=== PATIENT | female | born 1950 | race Caucasian/White ===

== ENCOUNTER → 2018-06-26 10:59 | Outpatient (REF) | payer MEDICARE, OTHER, SELFPAY ==
--- NOTE | 2018-06-26 10:40 | PAPFT_PTH ---
PATIENT: Dena Mojica LOC: [facility] U#:[id number] AGE/SX: 75/F ROOM: RE06/26/[address]: Anayeli Chamberlain DO : 1950 BED: DIS: SPEC #: [id number] RECD: 06/26/18 12:47 STATUS: RAMONA RERayna #: [id number] JUAN: 06/26/18 10:[address]: Anayeli Chamberlain DEPT: [facility] Cytology RECD BY: Ellen Batista Tissues: 1 - CX/ENDOCX FOR PAP SMEARS Procedures: PAP THIN PREP/UVM Screening Comments: [id number]
== END ==
LOC: LBN 10:59
PROVIDERS: PCP Student in an Organized Health Care Education/Training Program; Visit Provider Student in an Organized Health Care Education/Training Program
DX: R39.15 Urgency of urination (principal); Z12.4 Encounter for screening for malignant neoplasm of cervix
CPT/HCPCS: 88142; 87086

== ENCOUNTER → 2018-07-29 09:56 | Outpatient (BNVA) | payer MEDICARE, SELFPAY | PROVIDERS: PCP Student in an Organized Health Care Education/Training Program; Visit Provider Psychiatry & Neurology Neurology | DX: E11.42 Type 2 diabetes mellitus with diabetic polyneuropathy (principal); M48.061 Spinal stenosis, lumbar region without neurogenic claudication; R20.0 Anesthesia of skin | CPT/HCPCS: 99214 ==

== ENCOUNTER 2018-07-29 10:57 | Outpatient (CLI) | payer MEDICARE, OTHER, SELFPAY ==
[2018-07-29 11:49] LABS: Abs Immature Grans 0.02 k/cumm (0.0-0.09); Absolute Basophil Count 0.03 k/cumm (0.0-0.2); Absolute Eosinophil Count 0.28 k/cumm (0.0-0.7); Absolute Lymphocyte Count 2.71 k/cumm (1.2-3.4); Absolute Monocyte Count 0.69 k/cumm (0.11-0.7); Absolute Neutrophil Count 6.04 k/cumm (1.2-6.7); Basophils % 0.3; Eosinophils % 2.9; HCT 35.9 % (36.0-46.0); HGB 11.8 g/dL (12.0-15.5); Immature Grans % 0.2; Lymphocytes % 27.7; Mean Corp. HGB Concentration 32.9 g/dL (32.0-36.0); Mean Corpuscular Hemoglobin 30.1 pg (27.0-33.0); Mean Corpuscular Volume 91.6 fL (80-95); Mean Platelet Volume 10.5 fL (8.0-11.0); Monocytes % 7.1; Neutrophils % 61.8; Platelet Count 282 x1000/uL (130-400); RBC 3.92 m/cumm (4.00-5.20); RBC Distribution Width 14.9 % (11.7-14.6); White Blood Cell Count 9.77 k/cumm (4.4-10.8)
[2018-07-29 12:20] LABS: ALT 21 U/L (12-78); AST 12 U/L (15-37); Albumin 3.5 g/dL (3.4-5.0); Alkaline Phosphatase 126 U/L (46-116); Anion Gap 5.4 mmol/L (3-11); BUN 18 mg/dL (7-18); Bilirubin, Total 0.4 mg/dL (0.2-1.0); CO2 27.6 mmol/L (21.0-32.0); CREATININE 0.96 mg/dL (0.55-1.02); Calcium 8.8 mg/dL (8.5-10.1); Chloride 101 mmol/L (98-107); Estimated GFR 58.33 (mL/min/1.73m2); Glucose 117 mg/dL (70-100); Magnesium 1.8 mg/dL (1.8-2.4); Potassium 4.5 mmol/L (3.5-5.1); Sodium 134 mmol/L (136-145); Total Protein 7.1 g/dL (6.4-8.2)
== END 2018-07-29 11:17 ==
PROVIDERS: PCP Student in an Organized Health Care Education/Training Program; Visit Provider Student in an Organized Health Care Education/Training Program
DX: E11.9 Type 2 diabetes mellitus without complications (principal); J30.9 Allergic rhinitis, unspecified; I21.9 Acute myocardial infarction, unspecified
CPT/HCPCS: 36415; 80053; 99214; 83735; 85025

== ENCOUNTER → 2018-12-03 10:08 | Outpatient (BNVA) | payer MEDICARE, OTHER, SELFPAY | PROVIDERS: Visit Provider Internal Medicine Cardiovascular Disease | DX: I25.810 Atherosclerosis of coronary artery bypass graft(s) without angina pectoris (principal); Z95.1 Presence of aortocoronary bypass graft; I73.9 Peripheral vascular disease, unspecified; I51.9 Heart disease, unspecified; E78.5 Hyperlipidemia, unspecified; I34.0 Nonrheumatic mitral (valve) insufficiency; I11.9 Hypertensive heart disease without heart failure; E11.42 Type 2 diabetes mellitus with diabetic polyneuropathy; Z79.84 Long term (current) use of oral hypoglycemic drugs | CPT/HCPCS: 99214 ==

== ENCOUNTER → 2018-12-16 09:13 | Outpatient (BNVA) | payer MEDICARE, OTHER, SELFPAY | PROVIDERS: PCP Student in an Organized Health Care Education/Training Program; Referring Provider Student in an Organized Health Care Education/Training Program; Visit Provider Orthopaedic Surgery | DX: M65.312 Trigger thumb, left thumb (principal); M65.332 Trigger finger, left middle finger; M65.331 Trigger finger, right middle finger; M65.341 Trigger finger, right ring finger; Z96.651 Presence of right artificial knee joint | CPT/HCPCS: 99214 ==

== ENCOUNTER 2018-12-23 11:48 | Day surgery (SDC) | payer MEDICARE, OTHER, SELFPAY ==
[2018-12-23 12:33] VITALS: BP 100/62; PULSE 78; RESP 16; TEMP 36.1; O2SAT 98
[2018-12-23] MEDS: Lidocaine 2% Pres-Free 5 ML VIAL (13:43)
--- NOTE | 2018-12-23 14:32 | W.PM.DSUDISC ---
Discharge Plan Disposition Patient Disposition: HOME Condition: Good Discharge Details Reason For Visit: multiple trigger finger releases Attending Provider: Justo Garcia Primary Care Provider: Anayeli Chamberlain Home Meds and New Rx's Prescriptions: Continued cyanocobalamin (vitamin B-12) [Vitamin B-12] 1,000 MCG tablet 1,000 tab PO HS RF: 0 olopatadine [Patanol] 5 ML drops 1 drp Ophthalmic BID PRNRF: 0 nitroglycerin 0.4 MG tablet, sublingual 0.4 mg Sublingual PRN Qty: 25 RF: 3 fluticasone 16 GM spray,suspension 2 spray NS DAILY PRNQty: 6 RF: 3 pyridoxine (vitamin B6) [Vitamin B-6] 200 MG tablet extended release 200 mg PO DAILY RF: 0 ascorbic acid (vitamin C) [Vitamin C] 1,000 MG tablet 1,000 mg PO DAILY RF: 0 calcium carbonate-vitamin D3 1 EACH tablet 1 ea PO DAILY RF: 0 Proventil HFA 6.7 GM HFA aerosol inhaler 2 puff Inhalation Q6H PRN Qty: 1 RF: 11 acetaminophen 325 MG tablet 650 mg PO Q6H PRN RF: 0 carbamide peroxide [Debrox] 15 ML drops 15 ml Otic qhs Qty: 1 RF: 1 Blood Glucose Test 1 EACH strip 1 ea Miscellaneous BID PRNQty: 180 RF: 3 nystatin 15 GM cream 1 emmanuel Topical TID Qty: 30 RF: 1 Varicella-Zoster Ge/As01b/Pf [Shingrix Vial Kit] 50 MCG INJ 50 mcg IM ONCE Qty: 1 RF: 0 Lyrica 150 MG capsule 150 mg PO BID Qty: 180 RF: 3 atorvastatin 40 mg tablet 20 mg PO DAILY Qty: 90 RF: 3 clopidogrel 75 mg tablet 75 mg PO DAILY Qty: 90 RF: 3 furosemide 20 mg tablet 40 mg PO DAILY Qty: 180 RF: 3 ibuprofen 800 mg tablet 800 mg PO TID Qty: 90 RF: 0 lisinopril 10 mg tablet 10 mg PO DAILY Qty: 90 RF: 3 metformin 1,000 mg tablet 500 mg PO BID Qty: 90 RF: 3 metoprolol succinate 50 mg tablet extended release 24 hr 50 mg PO DAILY Qty: 90 RF: 3 oxybutynin chloride 5 mg tablet 5 mg PO TID Qty: 270 RF: 3 aspirin 81 MG tablet,chewable 81 mg PO DAILY RF: 0 Therapeutic-M 1 TAB tablet 1 tab PO DAILY Qty: 100 RF: 0 lorazepam 0.5 MG tablet 0.5 mg PO BID PRNQty: 30 RF: 0 Discharge Instructions Additional Instructions: Move fingers and thumbs of both hands 10 times/hour when awake to prevent stiffness and swelling. Keep dressings dry and intact for 48 hours. After 48 hours, you may remove the dressings, shower or bathe, and get incisions wet. Leave incisions uncovered when they are dry and sealed. Use your hands as much as pain allows. Take tylenol for pain. Follow up in 's office in 10-14 days. Activity:: Activity as Tolerated Remove Dressings/Wound Care:: 48 hours Shower/Bathe:: 48 hours Diet:: As Tolerated Discharge Orders Discharge Orders: Discharge Order (Routine); Ordered 12/23/18 Ordered By: Justo Garcia DS: Diagnosis Discharge Diagnosis (1) Trigger thumb of left hand: Start date: 12/23/18 Start time: 14:38 Status: Acute (2) Trigger finger, left middle finger: Start date: 12/23/18 Start time: 14:38 Status: Acute (3) Trigger finger, right middle finger: Start date: 12/23/18 Start time: 14:38 Status: Acute (4) Trigger finger, right ring finger: Start date: 12/23/18 Start time: 14:38 Status: Acute
--- NOTE | 2018-12-23 18:39 | ROE_ITS ---
DATE OF PROCEDURE: December 23, 2018 PREOPERATIVE DIAGNOSIS: Trigger right middle and ring fingers, as well as trigger left middle finger and trigger left thumb. POSTOPERATIVE DIAGNOSIS: Same. PROCEDURE: Tendon sheath incision for trigger fingers right middle and ring fingers, left middle fin adri, and left thumb. SURGEON: Justo Garcia M.D. ANESTHESIA: Local infiltration with 1% Xylocaine solution and 0.5% Marcaine with epinephrine solutio n. INDICATIONS: This is a 68-year-old white female who suffers from multiple painful trigger fingers. She feels that the triggering of her left thumb is probably the worst in terms of influencing functio n. She has had the painful locking for several months. She wishes to have all the fingers and her t humb released to alleviate her pain. The risks and complications of the procedure were explained to the patient in detail. She had had previous successful right trigger thumb release in the past. PROCEDURE: The patient was taken to the Operating Room on 12/23/18. She was placed supine on the ope rating table and her left hand was prepped and draped free in the usual sterile fashion. I then infi ltrated with 1% Xylocaine solution over the proximal una of the flexor sheath of the left thumb an d left middle finger. Once good anesthesia was obtained, I made an incision in line with the proxima l flexion crease of the left thumb centered over the flexor sheath. The incision was about 2-3 cm in length. The incision was carried down through the skin to the subcu. Blunt-tipped Littler scissors were then used to mobilize the digital nerve away from the flexor sheath. Under direct vision I inci sed the proximal una of the flexor sheath of the left thumb, releasing it completely. The patient was asked to flex and extend her left thumb actively. She was able to flex and extend her left thum b without any locking or triggering. The wound margins were then infiltrated with 0.5% Marcaine with epinephrine solution and the skin edges were approximated with interrupted #4-0 nylon sutures. I then made an incision over the flexor sheath of the left middle finger located about 5 mm distal to the distal palmar flexion crease. The incision was about 2.5 cm in length. The incision was maria eugenia d down to the subcu. Blunt-tipped Littler scissors were used to mobilize the soft tissue away from t he flexor sheath. Under direct vision I incised the proximal una of the flexor sheath. The patie nt was asked to actively flex and extend her left middle finger. She was able to flex and extend her left middle finger fully, with no further locking or triggering. The wound margins were infiltrated with 0.5% Marcaine with epinephrine solution and the skin edges were approximated with a few interru pted #4-0 nylon sutures. The wounds were then dressed with Xeroform gauze, sterile gauze 4x4s, and w rapped with a 2-inch Jannette bandage for a light pressure dressing. Attention was then turned to the r ight hand. The right hand was prepped and draped free in the usual sterile fashion. I then infiltrated over the flexor sheath of the right middle and ring fingers in the palm. Once good anesthesia was obtained, I then made a longitudinal incision about 5 mm distal and parallel to the distal palmar flexion creas e, starting over the flexor sheath of the ring finger and extending to the radial side of the flexor sheath of the middle finger. The incision was about 3-3.5 cm in length. The incision was carried do wn through the skin and subcu. Blunt-tipped Littler scissors were then used to mobilize the soft tis sues away from the flexor sheath of the ring finger. I then incised the proximal una of the left ring finger its entire length. The patient was asked to actively flex and extend the ring finger. S he was able to actively flex and extend her ring finger without locking or triggering. I then repeat ed the same incision on the flexor sheath of the right middle finger. After incising the proximal pu lley, the patient was asked to actively flex and extend her middle finger. She was now able to flex and extend her right middle finger without locking or triggering. The wound was irrigated with salin e solution. The wound margins were infiltrated with 0.5% Marcaine with epinephrine solution and the skin edges were approximated with interrupted #4-0 nylon sutures. The wound was dressed with Xerofor m gauze, sterile gauze 4x4s, and wrapped with a Jannette bandage for a light pressure dressing. The pat ient tolerated the procedure well and was discharged to the Day Surgery Unit in good condition. The patient was discharged home from the Day Surgery Unit with instructions to move her fingers and t humbs 10 times an hour while awake to prevent swelling and stiffness. She is to keep the dressings o n both hands clean and dry for 48 hours. After 48 hours she may remove her dressings, shower and get her incisions wet. She can leave the incisions uncovered when they are dry and sealed. She is enco uraged to use both hands as much as discomfort allows. She will take Tylenol for pain. She will fol low up in my office in 10 to 14 days.
== END 2018-12-23 14:50 | disposition home or self-care (01) ==
PROVIDERS: PCP Student in an Organized Health Care Education/Training Program; Visit Provider Orthopaedic Surgery
PROC: (CPT 26055; principal; 2018-12-23 13:00)
DX: M65.331 Trigger finger, right middle finger (principal); M65.341 Trigger finger, right ring finger; M65.332 Trigger finger, left middle finger; M65.312 Trigger thumb, left thumb; I10 Essential (primary) hypertension; E11.9 Type 2 diabetes mellitus without complications; G47.33 Obstructive sleep apnea (adult) (pediatric)
CPT/HCPCS: 26055

== ENCOUNTER 2018-12-29 12:00 | Outpatient (CLI) | payer MEDICARE, OTHER, SELFPAY ==
[2018-12-29 12:43] LABS: Anion Gap 12.7 mmol/L (3-11); BUN 24 mg/dL (7-18); CO2 23.3 mmol/L (21.0-32.0); CREATININE 1.13 mg/dL (0.55-1.02); Calcium 8.7 mg/dL (8.5-10.1); Chloride 104 mmol/L (98-107); Estimated GFR 48.18 (mL/min/1.73m2); Glucose 133 mg/dL (70-100); Magnesium 2.1 mg/dL (1.8-2.4); Potassium 4.6 mmol/L (3.5-5.1); Sodium 140 mmol/L (136-145)
[2018-12-29 12:52] LABS: Troponin I < 0.02 ng/mL (0.00-0.06)
== END 2018-12-29 12:20 ==
PROVIDERS: PCP Student in an Organized Health Care Education/Training Program; Visit Provider Family Medicine
DX: I49.3 Ventricular premature depolarization (principal); E11.9 Type 2 diabetes mellitus without complications; Z86.39 Personal history of other endocrine, nutritional and metabolic disease
CPT/HCPCS: 36415; 80048; 83735; 84484

== ENCOUNTER → 2018-12-31 14:05 | Outpatient (BNVA) | payer MEDICARE, OTHER, SELFPAY | PROVIDERS: PCP Student in an Organized Health Care Education/Training Program; Visit Provider Psychiatry & Neurology Neurology | DX: E11.42 Type 2 diabetes mellitus with diabetic polyneuropathy (principal); I73.9 Peripheral vascular disease, unspecified; M47.816 Spondylosis without myelopathy or radiculopathy, lumbar region | CPT/HCPCS: 99214 ==

== ENCOUNTER → 2019-01-05 09:36 | Outpatient (BNVA) | payer MEDICARE, OTHER, SELFPAY | PROVIDERS: PCP Student in an Organized Health Care Education/Training Program; Referring Provider Student in an Organized Health Care Education/Training Program; Visit Provider Orthopaedic Surgery | DX: Z47.89 Encounter for other orthopedic aftercare (principal); M65.312 Trigger thumb, left thumb; M65.332 Trigger finger, left middle finger; M65.331 Trigger finger, right middle finger; M65.341 Trigger finger, right ring finger ==

== ENCOUNTER 2019-01-05 10:45 | Outpatient (CLI) | payer MEDICARE, OTHER, SELFPAY ==
[2019-01-05 12:53] LABS: ALT 20 U/L (12-78); AST 12 U/L (15-37); Albumin 3.5 g/dL (3.4-5.0); Alkaline Phosphatase 101 U/L (46-116); Anion Gap 12.1 mmol/L (3-11); BUN 24 mg/dL (7-18); Bilirubin, Total 0.4 mg/dL (0.2-1.0); CO2 23.9 mmol/L (21.0-32.0); CREATININE 1.06 mg/dL (0.55-1.02); Calcium 9.1 mg/dL (8.5-10.1); Chloride 103 mmol/L (98-107); Cholesterol 156 mg/dL (50-200); Estimated GFR 51.86 (mL/min/1.73m2); Glucose 146 mg/dL (70-100); HDL Cholesterol 36 mg/dL (40-60); LDL CHOLESTEROL 75 mg/dL (<100); Potassium 4.5 mmol/L (3.5-5.1); Sodium 139 mmol/L (136-145); Total Protein 6.9 g/dL (6.4-8.2); Triglyceride 271 mg/dL (30-150)
== END 2019-01-05 11:05 ==
PROVIDERS: Internal Medicine Cardiovascular Disease; PCP Student in an Organized Health Care Education/Training Program; Visit Provider Student in an Organized Health Care Education/Training Program
DX: E78.5 Hyperlipidemia, unspecified (principal); I21.4 Non-ST elevation (NSTEMI) myocardial infarction; I10 Essential (primary) hypertension; R79.89 Other specified abnormal findings of blood chemistry
CPT/HCPCS: 36415; 80048; 80053; 80061; 83721

== ENCOUNTER → 2019-02-02 10:26 | Outpatient (BNVA) | payer MEDICARE, OTHER, SELFPAY | PROVIDERS: PCP Student in an Organized Health Care Education/Training Program; Referring Provider Student in an Organized Health Care Education/Training Program; Visit Provider Orthopaedic Surgery | DX: M70.61 Trochanteric bursitis, right hip (principal); M65.312 Trigger thumb, left thumb; M65.332 Trigger finger, left middle finger; M65.331 Trigger finger, right middle finger; M65.341 Trigger finger, right ring finger; E11.9 Type 2 diabetes mellitus without complications; Z79.84 Long term (current) use of oral hypoglycemic drugs | CPT/HCPCS: 99211; 99213 ==

== ENCOUNTER → 2019-04-12 09:33 | Outpatient (BNVA) | payer MEDICARE, OTHER, SELFPAY | PROVIDERS: PCP Student in an Organized Health Care Education/Training Program; Visit Provider Psychiatry & Neurology Neurology | DX: E11.42 Type 2 diabetes mellitus with diabetic polyneuropathy (principal); I73.9 Peripheral vascular disease, unspecified; M47.816 Spondylosis without myelopathy or radiculopathy, lumbar region; Z79.84 Long term (current) use of oral hypoglycemic drugs; I10 Essential (primary) hypertension | CPT/HCPCS: 99213 ==

== ENCOUNTER 2019-05-19 00:13 | Outpatient (CLI) | payer MEDICARE, OTHER, SELFPAY ==
--- NOTE | 2019-05-19 12:49 | DI.CT_ITS ---
SYMPTOMS/DIAGNOSIS: 8.1 MM LUNG NODULE PER JUL 2017 IMAGE, STABLE PER 02/02/18 CT, R91.1-SOLITARY PULMONARY NODULE CHEST CT, NONCONTRAST: CT examination of the chest was performed without contrast administration. Images obtained through the upper abdomen show unremarkable appearance of visualized portions of the liver, spleen and pancreas. No pleural effusion seen. No pulmonary consolidation. A previously described right lower lobe nodule, which is well circumscribed, measures about 7 mm in mean diameter and is unchanged in appearance in comparison with the previous CT of 02/02/18. No new pulmonary nodules seen. Tracheolaryngeal structures appear intact. No significant adenopathy identified. CONCLUSION: Stable right lower lobe pulmonary nodule, which is about 7 mm in mean diameter. Follow-up chest CT recommended in 12 months.
== END 2019-05-19 00:33 ==
PROVIDERS: PCP Student in an Organized Health Care Education/Training Program; Visit Provider Student in an Organized Health Care Education/Training Program
DX: R91.1 Solitary pulmonary nodule (principal)
CPT/HCPCS: 71250

== ENCOUNTER → 2019-07-14 14:25 | Outpatient (BNVA) | payer MEDICARE, OTHER, SELFPAY | PROVIDERS: PCP Student in an Organized Health Care Education/Training Program; Visit Provider Psychiatry & Neurology Neurology | DX: J81.1 Chronic pulmonary edema (principal); E11.42 Type 2 diabetes mellitus with diabetic polyneuropathy; I73.9 Peripheral vascular disease, unspecified; M47.816 Spondylosis without myelopathy or radiculopathy, lumbar region; Z79.84 Long term (current) use of oral hypoglycemic drugs; I10 Essential (primary) hypertension | CPT/HCPCS: 99214 ==

== ENCOUNTER 2019-08-10 09:25 | Outpatient (CLI) | payer MEDICARE, OTHER, SELFPAY ==
[2019-08-10 10:40] LABS: HCT 38.3 % (36.0-46.0); HGB 12.2 g/dL (12.0-15.5); Mean Corp. HGB Concentration 31.9 g/dL (32.0-36.0); Mean Corpuscular Hemoglobin 29.2 pg (27.0-33.0); Mean Corpuscular Volume 91.6 fL (80-95); Mean Platelet Volume 10.7 fL (8.0-11.0); Platelet Count 223 x1000/uL (130-400); RBC 4.18 m/cumm (4.00-5.20); RBC Distribution Width 15.5 % (11.7-14.6); White Blood Cell Count 9.26 k/cumm (4.4-10.8)
[2019-08-10 10:57] LABS: Anion Gap 11.9 mmol/L (3-11); BUN 13 mg/dL (7-18); CO2 23.1 mmol/L (21.0-32.0); CREATININE 1.02 mg/dL (0.55-1.02); Chloride 108 mmol/L (98-107); Estimated GFR 54.22 (mL/min/1.73m2); Glucose 146 mg/dL (70-100); Potassium 5.2 mmol/L (3.5-5.1); Sodium 143 mmol/L (136-145)
[2019-08-10 11:02] LABS: Calcium 8.4 mg/dL (8.5-10.1)
[2019-08-10 11:26] LABS: Calculated LDL 48 mg/dL; Cholesterol 137 mg/dL (50-200); HDL Cholesterol 36 mg/dL (40-60); Triglyceride 268 mg/dL (30-150)
== END 2019-08-10 09:45 ==
PROVIDERS: PCP Student in an Organized Health Care Education/Training Program; Visit Provider Student in an Organized Health Care Education/Training Program
DX: D64.9 Anemia, unspecified (principal); E53.8 Deficiency of other specified B group vitamins; Z95.1 Presence of aortocoronary bypass graft; E11.9 Type 2 diabetes mellitus without complications; E78.89 Other lipoprotein metabolism disorders
CPT/HCPCS: 36415; 80048; 80053; 80061; 85027

== ENCOUNTER 2019-08-24 09:04 | Outpatient (CLI) | payer MEDICARE, OTHER, SELFPAY ==
[2019-08-24 10:35] LABS: ALT 30 U/L (14-59); AST 17 U/L (15-37); Albumin 3.2 g/dL (3.4-5.0); Alkaline Phosphatase 104 U/L (46-116); Anion Gap 9.5 mmol/L (3-11); BUN 14 mg/dL (7-18); Bilirubin, Total 0.4 mg/dL (0.2-1.0); CO2 23.5 mmol/L (21.0-32.0); CREATININE 0.91 mg/dL (0.55-1.02); Calcium 8.3 mg/dL (8.5-10.1); Chloride 108 mmol/L (98-107); Glucose 130 mg/dL (70-100); Potassium 4.4 mmol/L (3.5-5.1); Sodium 141 mmol/L (136-145); Total Protein 6.3 g/dL (6.4-8.2)
== END 2019-08-24 09:24 ==
PROVIDERS: PCP Student in an Organized Health Care Education/Training Program; Visit Provider Student in an Organized Health Care Education/Training Program
DX: I10 Essential (primary) hypertension (principal); E11.9 Type 2 diabetes mellitus without complications; R60.9 Edema, unspecified; R06.02 Shortness of breath; I25.10 Atherosclerotic heart disease of native coronary artery without angina pectoris
CPT/HCPCS: 36415; 80048; 80053

== ENCOUNTER 2019-09-14 01:18 | Outpatient (CLI) | payer MEDICARE, OTHER, SELFPAY ==
--- NOTE | 2019-09-14 13:10 | DI.RAD_ITS ---
EXAM: XR CHEST 2V PA LATERAL INDICATION: r/o pneumonia, effusion, SOB, shallow breathing, allergic cough. COMPARISON: CHEST 2 VIEWS PA,LAT from 09/18/2017 TECHNIQUE: 2D digital imaging was performed. FINDINGS: The heart is enlarged. The patient is status post CABG. There is a small left pleural effusion. The re is no definite over pulmonary edema. No focal infiltrate is visible. IMPRESSION: Cardiomegaly and small left pleural effusion.
--- NOTE | 2019-09-14 14:00 | DI.US_ITS ---
APPROVED REPORT Conclusion Poor image quality limited the interpretation of the study. Left Ventricle : The left ventricle is grossly normal size. The left ventricular ejection fraction is within the normal range. There is normal LV segmental wall motion. Mild concentric left ventricular hypertrophy. There is grade 2 diastolic dysfunction. LVEF is 55-60%. Right Ventricle : The right ventricle is normal size. The right ventricular systolic function is norm al. Atria : Left atrium is dilated. Right atrium is dilated. Aortic Valve : The Aortic valve is sclerotic. The aortic valve is probably tricuspid. No aortic regur gitation is present. No hemodynamically significant valvular aortic stenosis. Mitral Valve : There is mitral annular calcification. Mitral valve leaflets are thickened. Mild melita l regurgitation. Mild mitral stenosis (mean PG is 4.3mmHg.) Tricuspid Valve : The tricuspid valve is normal in structure. Mild tricuspid regurgitation. Pulmonic Valve : Pulmonic valve is not well visualized. Great Vessels : Normal caliber and appears to collapse >50%. RVSP=40 to 45 mmHg EXAM: Comprehensive 2D, Doppler, and color-flow Echocardiogram Patient Location: Out-Patient Check Writer: [facility] Mg (AE) Rhythm: NSR Indications: increased SOB with exertion. hx W[place], hx anemia, edema, HTn, SoB, CAD. i10, r60.9, r06.02, i25.10 Left Ventricle The left ventricle is grossly normal size. The left ventricular ejection fraction is within the johnathan l range. Mild concentric left ventricular hypertrophy. There is normal LV segmental wall motion. Ther e is grade 2 diastolic dysfunction. LVEF is 55-60%. Right Ventricle The right ventricle is normal size. The right ventricular systolic function is normal. Atria Left atrium is dilated. Right atrium is dilated. Aortic Valve The Aortic valve is sclerotic. The aortic valve is probably tricuspid. No hemodynamically significant valvular aortic stenosis. No aortic regurgitation is present. Mitral Valve There is mitral annular calcification. Mitral valve leaflets are thickened. Mild mitral stenosis (kenroy n PG is 4.3mmHg.) Mild mitral regurgitation. Tricuspid Valve The tricuspid valve is normal in structure. Mild tricuspid regurgitation. Pulmonic Valve Pulmonic valve is not well visualized. Great Vessels Aortic root is not well visualized. Normal caliber and appears to collapse >50%. RVSP=40 to 45 mmHg Pericardium There is no pericardial effusion. 2D Dimensions IVSd 1.06 cm F: 0.6-1.0 LV EDV A2C 64.90 mL PWd 1.11 cm F: 0.6 - 1.0 LV EDV A4C 116.40 mL LVDd 5.28 cm F: 3.9 - 5.3 LA Volume Index A4C 42.83 mL/m2 LVDs 3.60 cm F: 2.2 - 3.5 LA Area A4C 25.78 cm2 Aortic Root 3.33 cm F: 2.7 - 3.3 EF AP4 60.31 % RA Area A4C 21.47 cm2 EF AP2 60.86 % LVOT 1.82 cm (M/F) 1.5-2.5 EF BP 56.56 % LVEF (Teich) 59.46 % LVEF (Dumont's) 56.56 % F: 54 - 74 LV Volume 66.44 mL F: 46 - 106 LV Volume Index 29.39 mL/m2 F: 29 - 61 FS 31.84 % LV Diastology E Decel Time 237.00 (160-240 msec) E/A Ratio 2.00 MED E' 0.08 (>0.07 m/s) LV E/e MED 20.68 (<14) LAT E' 0.07 (>0.1 m/s) LV E/e LAT 21.60 (<14) Aortic Valve LVOT Area 2.59 cm2 LVOT Peak Jsoef. 0.92 m/s LVOT Mean Josef. 0.70 m/s TEAGAN Vmax 0.00 m/s LVOT Peak Gr. 3.38 mmHg TEAGAN Vmax Index 0.70 cm2/m2 LVOT Mean Gr. 2.14 mmHg TEAGAN Mean Josef. 0.00 m/s LVOT VTI 0.23 m TEAGAN Mean Josef. Index 0.75 cm2/m2 AoV Peak Josef. 1.50 (0.5-1.3 m/s) AoV Mean Josef. 1.08 m/s AO Peak GR. 9.04 mmHg AO Mean GR. 5.19 (<5 mmHg) AO VTI 0.35 (0.18-0.25 m) TEAGAN (VTI) 1.75 (2.5-4.5 cm2) TEAGAN (VTI) Index 0.77 cm/m2 Mitral Valve MV E Max Josef. 1.58 (0.4-1.3 m/s) MV A Velocity 0.81 (0.4-1.3 m/s) E/A Ratio 1.95 MV Decel. Time 237.34 (160-240 msec) MV PHT 68.83 msec MVA PHT 3.20 cm2 Tricuspid Valve TR P. Velocity 3.01 m/s TV Regurg Vmax 3.01 m/s TR P. Gradient 36.36 mmHg
== END 2019-09-14 01:38 ==
PROVIDERS: PCP Student in an Organized Health Care Education/Training Program; Visit Provider Student in an Organized Health Care Education/Training Program
DX: I25.10 Atherosclerotic heart disease of native coronary artery without angina pectoris (principal); I25.2 Old myocardial infarction; R06.02 Shortness of breath; R06.09 Other forms of dyspnea; I51.7 Cardiomegaly; I10 Essential (primary) hypertension; D64.9 Anemia, unspecified; Z95.1 Presence of aortocoronary bypass graft; R60.0 Localized edema; R05 Cough
CPT/HCPCS: 93306; 71046

== ENCOUNTER 2019-09-23 01:36 | Outpatient (CLI) | payer MEDICARE, SELFPAY ==
--- NOTE | 2019-09-23 09:20 | DI.MAMMO_ITS ---
EXAM: MG MAMMO SCREENING 60 MIN DUR MG MAMMO SCREENING 60 MIN DUR CLINICAL HISTORY: screening, Z12.31, General adult medical examination, Z00.00 screening, Z12.31, General adult medical examination, Z00.00 TECHNIQUE: Mammograms were interpreted according to the usual protocol including computer analysis w [employer] CAD system, tomosynthesis and C-view imaging. COMPARISON: Two thousand nine through 2018. FINDINGS: The breasts are composed of heterogeneously dense fibroglandular densities, Breast Density category C . No suspicious masses or suspicious microcalcifications are seen. Coarse, benign calcifications are a gain noted bilaterally. Biopsy marker clips are noted in the superior left breast. No skin thickening or abnormal axillary lymph nodes are seen. There has been no significant change from prior exams. IMPRESSION: BIRADS Category 2, negative mammogram with benign findings. Yearly screening mammography is recommen ded. BREAST DENSITY: The mammogram demonstrates the patient's breast tissue is dense. Dense breast tissue is very common and is not abnormal but dense breast tissue can make it harder to find cancer on a ma mmogram. Also, dense breast tissue may increase their breast cancer risk. This information about the result of the mammogram report was provided to the patient to raise their awareness. Use this report when you speak with the patient about their risks for breast cancer, which includes their family hist ory. At that time, you may recommend for more screening tests (Ultrasound or MRI) as they might be us eful based on their risk. A negative radiographic report should not delay biopsy if a dominant or clinically suspicious mass is present. Up to ten percent of cancers are not identified on mammography. A negative report may reinforce clinical impression. Adenosis and dense breasts may obscure an underlying neoplasm. False positive reports average 6 to 10%.
== END 2019-09-23 01:56 ==
PROVIDERS: PCP Student in an Organized Health Care Education/Training Program; Visit Provider Student in an Organized Health Care Education/Training Program
DX: Z12.31 Encounter for screening mammogram for malignant neoplasm of breast (principal); R92.1 Mammographic calcification found on diagnostic imaging of breast
CPT/HCPCS: 77063; 77067

== ENCOUNTER → 2019-10-13 14:37 | Outpatient (BNVA) | payer MEDICARE, OTHER, SELFPAY | PROVIDERS: PCP Student in an Organized Health Care Education/Training Program; Referring Provider Student in an Organized Health Care Education/Training Program; Visit Provider Psychiatry & Neurology Neurology | DX: J81.1 Chronic pulmonary edema (principal); R60.9 Edema, unspecified; E11.42 Type 2 diabetes mellitus with diabetic polyneuropathy; Z79.84 Long term (current) use of oral hypoglycemic drugs | CPT/HCPCS: 99213 ==

== ENCOUNTER → 2020-04-03 07:52 | Outpatient (BNVA) | payer MEDICARE, OTHER, SELFPAY | PROVIDERS: PCP Student in an Organized Health Care Education/Training Program; Referring Provider Student in an Organized Health Care Education/Training Program; Visit Provider Psychiatry & Neurology Neurology | DX: E11.42 Type 2 diabetes mellitus with diabetic polyneuropathy (principal); I73.9 Peripheral vascular disease, unspecified; M48.061 Spinal stenosis, lumbar region without neurogenic claudication; Z79.84 Long term (current) use of oral hypoglycemic drugs | CPT/HCPCS: 99213; 99443 ==

== ENCOUNTER → 2020-09-12 11:47 | Outpatient (BNVA) | payer MEDICARE, OTHER, SELFPAY | PROVIDERS: PCP Student in an Organized Health Care Education/Training Program; Referring Provider Student in an Organized Health Care Education/Training Program; Visit Provider Orthopaedic Surgery | DX: M25.562 Pain in left knee (principal); M70.52 Other bursitis of knee, left knee; M75.81 Other shoulder lesions, right shoulder; E11.42 Type 2 diabetes mellitus with diabetic polyneuropathy; I10 Essential (primary) hypertension; Z79.84 Long term (current) use of oral hypoglycemic drugs | CPT/HCPCS: 99213 ==

== ENCOUNTER 2020-09-13 08:06 | Emergency (ER) | payer MEDICARE, OTHER, SELFPAY ==
[2020-09-13] VITALS (9 sets, daily range): BP systolic 135–151; BP diastolic 53–70; PULSE 71–82; RESP 13–18; TEMP 36.6; O2SAT 98–100
--- NOTE | 2020-09-13 08:30 | RT.EKG_ITS ---
APPROVED REPORT Exam: Resting ECG Patient Location: E HR:73 bpm ECG Measurements Heart Rate 73 AXIS TN 177 P 42 QRSd 97 QRS 26 QT 392 T 58 QTc 432 Conclusion Age and gender not entered, assume 52 yo male for purpose of ECG interpretation Sinus rhythm...normal P axis, V-rate 60- 99 Low voltage, precordial leads...precordial leads <1.0mV Consider anteroseptal infarct...Q >30mS, dimin R, V1-V2
--- NOTE | 2020-09-13 08:31 | ED.GENADUL_ITS ---
Discharge Plan Disposition Patient Disposition: HOME Condition: Stable Discharge Details Clinical Impression: Medication reaction Primary Care Provider: Anayeli Chamberlain ED Provider: Dariel Evans Home Meds and New Rx's Prescriptions: Continued atorvastatin 40 mg tablet 40 mg PO QHS RF: 0 docusate sodium 100 mg capsule 100 mg PO DAILY RF: 0 loratadine 10 mg tablet 10 mg PO DAILY Qty: 90 RF: 3 albuterol sulfate [Proventil HFA] 90 mcg/actuation HFA aerosol inhaler 2 puff Inhalation Q4H PRN (Reason: bronchospasm) Qty: 1 RF: 1 metformin 1,000 mg tablet 500 mg PO BID Qty: 90 RF: 3 oxybutynin chloride 5 mg tablet 5 mg PO TID Qty: 270 RF: 3 lisinopril 10 mg tablet 10 mg PO DAILY Qty: 90 RF: 3 metoprolol succinate 50 mg tablet extended release 24 hr 50 mg PO DAILY Qty: 90 RF: 3 clopidogrel 75 mg tablet 75 mg PO DAILY Qty: 90 RF: 3 furosemide 20 mg tablet 40 mg PO DAILY Qty: 180 RF: 3 cyanocobalamin (vitamin B-12) [Vitamin B-12] 1,000 MCG tablet 1,000 tab PO HS RF: 0 olopatadine [Patanol] 5 ML drops 1 drp Ophthalmic BID PRNRF: 0 nitroglycerin 0.4 MG tablet, sublingual 0.4 mg Sublingual PRN Qty: 25 RF: 3 pyridoxine (vitamin B6) [Vitamin B-6] 200 MG tablet extended release 200 mg PO DAILY RF: 0 ascorbic acid (vitamin C) [Vitamin C] 1,000 MG tablet 1,000 mg PO DAILY RF: 0 acetaminophen 325 MG tablet 650 mg PO Q6H PRN RF: 0 (DME) Blood Glucose Test 1 EACH strip 1 ea Miscellaneous BID Qty: 180 RF: 3 nystatin 15 GM cream 1 emmanuel Topical TID Qty: 30 RF: 1 ibuprofen 800 mg tablet 800 mg PO TID Qty: 90 RF: 0 fluticasone propionate 50 mcg/actuation spray,suspension 2 spray NS DAILY PRN (Reason: nasal congestion) Qty: 16 RF: 3 tramadol 50 mg tablet 50 mg PO QHS PRN (Reason: pain) Qty: 90 RF: 3 pregabalin [Lyrica] 150 mg capsule 150 mg PO DIRECTED Qty: 270 RF: 3 aspirin 81 MG tablet,chewable 81 mg PO DAILY RF: 0 Therapeutic-M 1 TAB tablet 1 tab PO DAILY Qty: 100 RF: 0 No Action prednisone 5 mg tablet 5 mg PO BID RF: 0 calcium carbonate-vitamin D3 1 EACH tablet 1 ea PO DAILY RF: 0 Discharge Instructions Additional Instructions: Please follow-up with your doctor. Do not use amoxicillin until cleared to do so. Please contact your primary care physician to arrange follow-up. Return to the ER for any worsening or new concerning symptoms. Referrals: Anayeli Chamberlain DO [Primary Care Provider] - Discharge Data Discharge Date/Time-TO BE ENTERED AT DEPARTURE: 09/13/20 09:48 Medical Decision Making 8:45 -- 69-year-old female here after having an episode of shortness of breath, bilateral arm redness, nausea, after taking her prescribed prophylactic amoxicillin. Patient now completely asymptomatic. Lungs are clear. Vital signs are normal. Screening ECG was reviewed and interpreted by me: Please see report, sinus rhythm 73 bpm, no significant changes compared to prior ECG from 2019. 9:11 --patient ambulated around department and remains asymptomatic. Appears well. Thinks symptoms may be related to or exacerbated by anxiety. Medical screening exam was performed. Patient is stable. Plan for outpatient follow-up with PCP. Patient was instructed to not use amoxicillin. HPI General Mode of arrival: ambulatory . Date/Time Provider Initiated Documentation: 09/13/20 08:14 . Limitations to Documentation: no limitations . Information obtained by: patient and EMS . HPI Narrative: 69-year-old female with multiple medical problems including obstructive sleep apnea, presents with chief complaint of allergic reaction. Patient notes that she woke up this morning was feeling fine and took her prophylactic amoxicillin dose as instructed prior to dental appointment, about an hour later she started to feel flushed and developed bilateral upper extremity redness, shortness of breath, and some nausea. Symptoms were severe.bPatient called 911 and EMS responded. EMS attempted to obtain IV access and could not. Patient was provided Zofran ODT. Patient now notes she feels normal and at baseline. She denies shortness of breath or chest pain. No swelling. No rash. No difficulty breathing. Related Data Home Medications Medication Instructions Recorded Confirmed cyanocobalamin (vitamin B-12) 1,000 tab PO HS 02/22/13 10/02/20 [Vitamin B-12] olopatadine [Patanol] 1 drp OPHTHALMIC BID PRN drp 02/22/13 10/02/20 aspirin 81 mg PO DAILY 06/21/13 10/02/20 nitroglycerin 0.4 mg SUBLINGUAL PRN #25 tab 05/23/16 10/02/20 ascorbic acid (vitamin C) [Vitamin 1,000 mg PO DAILY 11/07/16 10/02/20 C] calcium carbonate-vitamin D3 1 ea PO DAILY 11/07/16 10/02/20 pyridoxine (vitamin B6) [Vitamin 200 mg PO DAILY 11/07/16 10/02/20 B-6] acetaminophen 650 mg PO Q6H PRN tab-cap 07/08/17 10/02/20 Therapeutic-M 1 tab PO DAILY #100 tab 09/21/17 10/02/20 Blood Glucose Test #180 strip 03/19/18 10/02/20 nystatin 1 emmanuel TOPICAL TID #30 gm 04/10/18 10/02/20 ibuprofen 800 mg tablet 800 mg PO TID #90 tab-cap 11/02/18 10/02/20 atorvastatin 40 mg tablet 40 mg PO QHS 01/28/19 10/02/20 albuterol sulfate 90 mcg/actuation 2 puff INHALATION Q4H PRN #1 gm 07/05/19 10/02/20 aerosol inhaler fluticasone propionate 50 2 spray NS DAILY PRN #16 gm 07/15/19 10/02/20 mcg/actuation nasal spray,suspension docusate sodium 100 mg capsule 100 mg PO DAILY 08/11/19 10/02/20 loratadine 10 mg tablet 10 mg PO DAILY #90 tab 08/11/19 10/02/20 clopidogrel 75 mg tablet 75 mg PO DAILY #90 tab-cap 12/02/19 10/02/20 furosemide 20 mg tablet 40 mg PO DAILY #180 tab 12/02/19 10/02/20 lisinopril 10 mg tablet 10 mg PO DAILY #90 tab-cap 12/02/19 10/02/20 metformin 1,000 mg tablet 500 mg PO BID #90 tab-cap 12/02/19 10/02/20 metoprolol succinate 50 mg 50 mg PO DAILY #90 tab 12/02/19 10/02/20 tablet,extended release 24 hr oxybutynin chloride 5 mg tablet 5 mg PO TID #270 tab-cap 12/02/19 10/02/20 pregabalin 150 mg capsule 150 mg PO DIRECTED #270 tab-cap 08/16/20 10/02/20 tramadol 50 mg tablet 50 mg PO QHS PRN #90 tab 08/16/20 10/02/20 prednisone 5 mg tablet 5 mg PO BID tab 10/02/20 10/02/20 Previous Rx's Medication Instructions Recorded Therapeutic-M 1 tab PO DAILY #100 tab 09/21/17 nystatin 1 emmanuel TOPICAL TID #30 gm 04/10/18 ibuprofen 800 mg tablet 800 mg PO TID #90 tab-cap 11/02/18 albuterol sulfate 90 mcg/actuation 2 puff INHALATION Q4H PRN #1 gm 07/05/19 aerosol inhaler fluticasone propionate 50 2 spray NS DAILY PRN #16 gm 07/15/19 mcg/actuation nasal spray,suspension loratadine 10 mg tablet 10 mg PO DAILY #90 tab 08/11/19 clopidogrel 75 mg tablet 75 mg PO DAILY #90 tab-cap 12/02/19 furosemide 20 mg tablet 40 mg PO DAILY #180 tab 12/02/19 lisinopril 10 mg tablet 10 mg PO DAILY #90 tab-cap 12/02/19 metformin 1,000 mg tablet 500 mg PO BID #90 tab-cap 12/02/19 metoprolol succinate 50 mg 50 mg PO DAILY #90 tab 12/02/19 tablet,extended release 24 hr oxybutynin chloride 5 mg tablet 5 mg PO TID #270 tab-cap 12/02/19 pregabalin 150 mg capsule 150 mg PO DIRECTED #270 tab-cap 08/16/20 tramadol 50 mg tablet 50 mg PO QHS PRN #90 tab 08/16/20 Allergies Allergy/AdvReac Type Severity Reaction Status Date / Time hydrocodone bitartrate Allergy Severe severe Verified 10/02/20 15:03 [From Vicodin] facial swelling amoxicillin Allergy Verified 10/02/20 15:03 lactose AdvReac Intermediate Diarrhea Verified 10/02/20 15:03 Environmental AdvReac Intermediate Congestion Uncoded 10/02/20 15:03 General Stated Complaint: Allergic ALEXANDER: 3 Review of Systems All systems reviewed & are unremarkable except as noted in HPI and below Constitutional Constitutional: Denies fever(s) Cardiovascular Cardiovascular: Denies dyspnea Respiratory Respiratory: Denies dyspnea REPLACED BY [facility] Medical History Acute myocardial infarction (07/09/13) MPI 11/2014 no ischemia EF 52%; h/o inferolateral infarction 1988 due to spasm, neg coronaries, attributed to smoking Allergic rhinitis (07/29/13) Anemia Anxiety about health B12 deficiency (05/20/12) Benign hypertension CAD (coronary artery disease) Chronic diarrhea (07/29/13) Chronic low back pain without sciatica Chronic rhinitis (11/04/13) Chronic right-sided low back pain with left-sided sciatica (06/16/18) 07/15/18 Seen at [facility], Lumbar Spine MRI Cor athrscl-uns vessel (05/20/12) hx [place] Coronary artery disease Coronary atherosclerosis (05/20/12) hx [place] Cystocele Cystocele, midline (02/26/13) 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 (07/09/13) Deviated nasal septum (11/04/13) Diabetes mellitus (10/30/12) A1c goal 7.5 04/24/18 visit w/ [employer]. Plan:document food and BS 4-5 days. mail them in for review and increase vegetables at night. Diabetes mellitus, type 2 Diabetic polyneuropathy associated with type 2 diabetes mellitus (11/10/17) Diastolic dysfunction Disorder of vitamin B12 Edema (07/09/13) Improved, 09/2018 Essential hypertension (07/27/13) WNL, doing well, tolerating meds 12/01/18 Glossitis History of myocardial infarction a. 1988. Hyperlipidemia Hyperlipidemia (02/26/13) CAD; LDL baseline 124 Hyperlipidemia (02/26/13) CAD; LDL baseline 124 Hypertension Lactose intolerance (04/07/14) Lower leg edema Lumbar radiculopathy (07/09/13) 11/19/16 MRI disc herniation L4-5, L5-S1. Nerve block/[facility] 10/2018. Lumbar spondylosis Lumbar stenosis Mass of soft tissue Numbness and tingling in left hand will always be there, left ulnar access for grafts for leg Obese Osteoarthritis Other B-complex deficiencies (05/20/12) PAD (peripheral artery disease) (05/08/17) bilateral iliac stents placed [facility] [place]. Packer f/u ov 05/14/18. rtc 6mo. w. MARTÍN's and bilateral iliac duplex. Robert Marin MD. [facility] vascular. Pain in right knee Peripheral vascular disease Pneumonitis Postoperative wound infection Pulmonary edema Restless leg syndrome Restless legs syndrome (02/26/13) Sepsis due to Escherichia coli [e. coli] Skin fissure Sleep apnea, obstructive Urinary urgency Vitamin D deficiency Xerostomia (12/09/13) Surgical History Bialteral illiac stents (05/07/17) Dr Packer Coronary Artery Bypass Gaft (CABG) (05/15/17) CAD s/p CABG x2 (05/15/17) [facility] (adm date 05/12/17.Discharge date 05/29/2017) History of Surgical Procedure a. Right trigger thumb release. b. Cardiac catheterization at [facility] in [place], no obstruction found. c. Tonsillectomy. d. Bilateral endoscopic carpal tunnel release. e. Ganglion cyst removal from right wrist. f. Colonoscopy. g. Right knee arthroscopy. Open Carpal Tunnel release bilateral Replacement of total knee joint (07/18/14) Right total knee replacement Dr. Garcia at [facility] S/P CABG (coronary artery bypass graft) (05/15/17) x2 (05/15/17) Status post vascular bypass Tonsillectomy and adenoidectomy Trigger Finger release (06/08/13) Dr. Garcia Family History Other Benign hypertension Social History (Updated 10/02/20 @ 15:02 by Caitlin Sanches LPN) Smoking/Tobacco Use Status: Former Tobacco Use Smoking risk assessment performed?: Yes Alcohol Intake: never Drug use: Never Substance use type: does not use Housing: house Number of Children: 2 number of grandchildren: 2 Communication Needs: None current occupation: retired from [employer] and [employer] What type of physical activity do you participate in: none Seatbelt use: always Drive intox or ride w/intox package car driver: No Working smoke detector in home: Yes Do you feel safe at home: Yes Do you feel safe in your relationship?: Yes Additional Social history: She is . Retired. No smoking, ETOH, or illicit drug use. Exam Const General: cooperative and no acute distress HENRI Head: normocephalic and atraumatic Mouth: moist mucous membranes Eyes Conjunctivae: normal conjunctivae Sclera: normal sclerae Neck Neck: trachea midline, supple and No JVD Resp Auscultation: clear to auscultation bilaterally, no rales, no rhonchi and no wheezes Cardio Jugular venous pressure: no JVD Rate: regular rate and not tachycardic Rhythm: regular rhythm GI Palpation: soft, not firm, no guarding, no masses, not rigid and nontender Skin General skin exam: no rashes or lesions noted Neuro General: patient alert, patient awake, patient oriented x3 and tone normal Extrem General: no edema Psych Appearance: grossly normal Mental Status: mental status grossly normal Course Vital Signs Vital signs: Vital Signs Temperature 36.6 C 09/13/20 08:14 Pulse 80 09/13/20 08:14 Respiratory Rate 18 09/13/20 08:14 Blood Pressure 141/56 H 09/13/20 08:14 Pulse Oximetry 98 09/13/20 08:14 Temperature 36.6 C 09/13/20 08:14 Temperature Source Skin 09/13/20 08:14 Pulse 80 09/13/20 08:14 Respiratory Rate 18 09/13/20 08:14 Respiratory Effort Labored 09/13/20 08:21 Blood Pressure 141/56 H 09/13/20 08:14 Blood Pressure Position Sitting 09/13/20 08:14 Pulse Oximetry 98 09/13/20 08:14 Oxygen Delivery Method Nasal Cannula 09/13/20 08:14 Oxygen Flow Rate 2 09/13/20 08:14 Pain Level 0 09/13/20 08:14
--- NOTE | 2020-09-13 08:50 | NUR.NOTE ---
pt remained at 97% room air when ambulating to the bathroom using a walker Nursing Note:
== END 2020-09-13 09:48 | disposition home or self-care (01) ==
LOC: ER 09:32
PROVIDERS: Emergency Provider Student in an Organized Health Care Education/Training Program; PCP Student in an Organized Health Care Education/Training Program
DX: R11.0 Nausea (principal); R21 Rash and other nonspecific skin eruption; R06.02 Shortness of breath; T36.0X5A Adverse effect of penicillins, initial encounter; E11.9 Type 2 diabetes mellitus without complications; Z79.84 Long term (current) use of oral hypoglycemic drugs; I10 Essential (primary) hypertension
CPT/HCPCS: 36415; 93005; 99284; 93010

== ENCOUNTER → 2020-10-02 14:54 | Outpatient (BNVA) | payer MEDICARE, OTHER, SELFPAY | PROVIDERS: PCP Student in an Organized Health Care Education/Training Program; Referring Provider Student in an Organized Health Care Education/Training Program; Visit Provider Psychiatry & Neurology Neurology | DX: E11.42 Type 2 diabetes mellitus with diabetic polyneuropathy (principal); I73.9 Peripheral vascular disease, unspecified; M54.16 Radiculopathy, lumbar region; I10 Essential (primary) hypertension; Z79.84 Long term (current) use of oral hypoglycemic drugs | CPT/HCPCS: 99213 ==

== ENCOUNTER → 2020-10-17 10:58 | Outpatient (BNVA) | payer MEDICARE, OTHER, SELFPAY | PROVIDERS: PCP Student in an Organized Health Care Education/Training Program; Referring Provider Student in an Organized Health Care Education/Training Program; Visit Provider Orthopaedic Surgery | DX: M77.8 Other enthesopathies, not elsewhere classified (principal); M70.52 Other bursitis of knee, left knee; M25.562 Pain in left knee; M25.511 Pain in right shoulder | CPT/HCPCS: 20610; 99213; J1040 ==

== ENCOUNTER 2020-11-10 13:07 | Emergency (ER) | payer MEDICARE, OTHER, SELFPAY ==
[2020-11-10] VITALS (8 sets, daily range): BP systolic 113–128; BP diastolic 45–66; PULSE 62–87; RESP 10–26; TEMP 36.7; O2SAT 99–100
--- NOTE | 2020-11-10 13:12 | W.ED.GENAD ---
Discharge Plan Disposition Patient Disposition: HOME Condition: Improving Discharge Details Clinical Impression: Examination for, medical, general Primary Care Provider: Anayeli Chamberlain ED Provider: Justo Barron Home Meds and New Rx's Prescriptions: Continued atorvastatin 40 mg tablet 40 mg PO QHS RF: 0 docusate sodium 100 mg capsule 100 mg PO DAILY RF: 0 loratadine 10 mg tablet 10 mg PO DAILY Qty: 90 RF: 3 albuterol sulfate [Proventil HFA] 90 mcg/actuation HFA aerosol inhaler 2 puff Inhalation Q4H PRN (Reason: bronchospasm) Qty: 1 RF: 1 metformin 1,000 mg tablet 500 mg PO BID Qty: 90 RF: 3 oxybutynin chloride 5 mg tablet 5 mg PO TID Qty: 270 RF: 3 lisinopril 10 mg tablet 10 mg PO DAILY Qty: 90 RF: 3 metoprolol succinate 50 mg tablet extended release 24 hr 50 mg PO DAILY Qty: 90 RF: 3 clopidogrel 75 mg tablet 75 mg PO DAILY Qty: 90 RF: 3 furosemide 20 mg tablet 40 mg PO DAILY Qty: 180 RF: 3 cyanocobalamin (vitamin B-12) [Vitamin B-12] 1,000 MCG tablet 1,000 tab PO HS RF: 0 olopatadine [Patanol] 5 ML drops 1 drp Ophthalmic BID PRNRF: 0 nitroglycerin 0.4 MG tablet, sublingual 0.4 mg Sublingual PRN Qty: 25 RF: 3 pyridoxine (vitamin B6) [Vitamin B-6] 200 MG tablet extended release 200 mg PO DAILY RF: 0 ascorbic acid (vitamin C) [Vitamin C] 1,000 MG tablet 1,000 mg PO DAILY RF: 0 calcium carbonate-vitamin D3 1 EACH tablet 1 ea PO DAILY RF: 0 (DME) Blood Glucose Test 1 EACH strip 1 ea Miscellaneous BID Qty: 180 RF: 3 nystatin 15 GM cream 1 emmanuel Topical TID Qty: 30 RF: 1 ibuprofen 800 mg tablet 800 mg PO TID Qty: 90 RF: 0 fluticasone propionate 50 mcg/actuation spray,suspension 2 spray NS DAILY PRN (Reason: nasal congestion) Qty: 16 RF: 3 tramadol 50 mg tablet 50 mg PO QHS PRN (Reason: pain) Qty: 90 RF: 3 pregabalin [Lyrica] 150 mg capsule 150 mg PO DIRECTED Qty: 270 RF: 3 aspirin 81 MG tablet,chewable 81 mg PO DAILY RF: 0 Therapeutic-M 1 TAB tablet 1 tab PO DAILY Qty: 100 RF: 0 Discharge Instructions Additional Instructions: Continue all of your regularly prescribed medications. Your general screening laboratories including complete blood count and comprehensive metabolic panel are reassuring today. Your EKG showed a sinus rhythm. Return for any acute concerns. Home to rest the remainder of the day. Medical Decision Making 69-year-old female who was referred from outpatient physical therapy during in approximately 100 foot walk, patient's blood pressure was noted to fall on their monitor. She was noted to feel hot. She was observed and decision made to transfer her to the ER. Patient states she did not have chest pain, no shortness of breath, did not feel lightheaded and did not have syncope. She arrives to the ER with a blood pressure 128/50 with a pulse of 67. History is notable for coronary disease, hypertension, diabetes. She states to me that often when she exercises she has felt hot and it resolves with rest. Patient placed on cardiac rehabilitation program director, screening labs and EKG obtained. The patient's EKG and laboratory work-up are unremarkable. She has had no unstable vital signs. She has had no complaints while in the ED. If her symptoms persist with physical therapy/physical exertion, may consider further monitoring or work-up. She is stable and appropriate for discharge to home at this time. HPI General Mode of arrival: ambulatory. Date/Time Provider Initiated Documentation: 11/10/20 13:12. Limitations to Documentation: no limitations. Information obtained by: patient. History of Present Illness 69 year old F presents to the emergency department with the chief complaint of Low blood pressure noted during PT, described as mild, Patient started experiencing this minute(s) and it has been now resolved. No relieving factors improve symptom(s), Patient notes denies chest pain, nausea/vomiting, syncope and weakness. Patient did receive the following treatments prior to arrival, none Related Data Home Medications Medication Instructions Recorded Confirmed cyanocobalamin (vitamin B-12) 1,000 tab PO HS 02/22/13 11/10/20 [Vitamin B-12] olopatadine [Patanol] 1 drp OPHTHALMIC BID PRN drp 02/22/13 11/10/20 aspirin 81 mg PO DAILY 06/21/13 11/10/20 nitroglycerin 0.4 mg SUBLINGUAL PRN #25 tab 05/23/16 11/10/20 ascorbic acid (vitamin C) [Vitamin 1,000 mg PO DAILY 11/07/16 11/10/20 C] calcium carbonate-vitamin D3 1 ea PO DAILY 11/07/16 11/10/20 pyridoxine (vitamin B6) [Vitamin 200 mg PO DAILY 11/07/16 11/10/20 B-6] Therapeutic-M 1 tab PO DAILY #100 tab 09/21/17 11/10/20 Blood Glucose Test #180 strip 03/19/18 11/10/20 nystatin 1 emmanuel TOPICAL TID #30 gm 04/10/18 11/10/20 ibuprofen 800 mg tablet 800 mg PO TID #90 tab-cap 11/02/18 11/10/20 atorvastatin 40 mg tablet 40 mg PO QHS 01/28/19 11/10/20 albuterol sulfate 90 mcg/actuation 2 puff INHALATION Q4H PRN #1 gm 07/05/19 11/10/20 aerosol inhaler fluticasone propionate 50 2 spray NS DAILY PRN #16 gm 07/15/19 11/10/20 mcg/actuation nasal spray,suspension docusate sodium 100 mg capsule 100 mg PO DAILY 08/11/19 11/10/20 loratadine 10 mg tablet 10 mg PO DAILY #90 tab 08/11/19 11/10/20 clopidogrel 75 mg tablet 75 mg PO DAILY #90 tab-cap 12/02/19 11/10/20 furosemide 20 mg tablet 40 mg PO DAILY #180 tab 12/02/19 11/10/20 lisinopril 10 mg tablet 10 mg PO DAILY #90 tab-cap 12/02/19 11/10/20 metformin 1,000 mg tablet 500 mg PO BID #90 tab-cap 12/02/19 11/10/20 metoprolol succinate 50 mg 50 mg PO DAILY #90 tab 12/02/19 11/10/20 tablet,extended release 24 hr oxybutynin chloride 5 mg tablet 5 mg PO TID #270 tab-cap 12/02/19 11/10/20 pregabalin 150 mg capsule 150 mg PO DIRECTED #270 tab-cap 08/16/20 11/10/20 tramadol 50 mg tablet 50 mg PO QHS PRN #90 tab 08/16/20 11/10/20 Previous Rx's Medication Instructions Recorded Therapeutic-M 1 tab PO DAILY #100 tab 09/21/17 nystatin 1 emmanuel TOPICAL TID #30 gm 04/10/18 ibuprofen 800 mg tablet 800 mg PO TID #90 tab-cap 11/02/18 albuterol sulfate 90 mcg/actuation 2 puff INHALATION Q4H PRN #1 gm 07/05/19 aerosol inhaler fluticasone propionate 50 2 spray NS DAILY PRN #16 gm 07/15/19 mcg/actuation nasal spray,suspension loratadine 10 mg tablet 10 mg PO DAILY #90 tab 08/11/19 clopidogrel 75 mg tablet 75 mg PO DAILY #90 tab-cap 12/02/19 furosemide 20 mg tablet 40 mg PO DAILY #180 tab 12/02/19 lisinopril 10 mg tablet 10 mg PO DAILY #90 tab-cap 12/02/19 metformin 1,000 mg tablet 500 mg PO BID #90 tab-cap 12/02/19 metoprolol succinate 50 mg 50 mg PO DAILY #90 tab 12/02/19 tablet,extended release 24 hr oxybutynin chloride 5 mg tablet 5 mg PO TID #270 tab-cap 12/02/19 pregabalin 150 mg capsule 150 mg PO DIRECTED #270 tab-cap 08/16/20 tramadol 50 mg tablet 50 mg PO QHS PRN #90 tab 08/16/20 Allergies Allergy/AdvReac Type Severity Reaction Status Date / Time hydrocodone bitartrate Allergy Severe severe Verified 11/10/20 13:18 [From Vicodin] facial swelling amoxicillin Allergy rash, SOB Verified 11/10/20 13:18 lactose AdvReac Intermediate Diarrhea Verified 11/10/20 13:18 Environmental AdvReac Intermediate Congestion Uncoded 11/10/20 13:18 General ALEXANDER: 3 Review of Systems Narrative: No syncope, no chest pain, no palpitations. States this is happened before during exercise. Now feels well without complaint. 8 systems reviewed and otherwise negative. [facility] Medical History Acute myocardial infarction (07/09/13) MPI 11/2014 no ischemia EF 52%; h/o inferolateral infarction 1988 due to spasm, neg coronaries, attributed to smoking Allergic rhinitis (07/29/13) Anemia Anxiety about health B12 deficiency (05/20/12) Benign hypertension CAD (coronary artery disease) Chronic diarrhea (07/29/13) Chronic low back pain without sciatica Chronic rhinitis (11/04/13) Chronic right-sided low back pain with left-sided sciatica (06/16/18) 07/15/18 Seen at [facility], Lumbar Spine MRI Cor athrscl-uns vessel (05/20/12) hx RI Coronary artery disease Coronary atherosclerosis (05/20/12) hx RI Cystocele Cystocele, midline (02/26/13) 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 (07/09/13) Deviated nasal septum (11/04/13) Diabetes mellitus (10/30/12) A1c goal 7.5 04/24/18 visit w/ [facility] Stitcher[facility]ha. Plan:document food and BS 4-5 days. mail them in for review and increase vegetables at night. Diabetes mellitus, type 2 Diabetic polyneuropathy associated with type 2 diabetes mellitus (11/10/17) Diastolic dysfunction Disorder of vitamin B12 Edema (07/09/13) Improved, 09/2018 Essential hypertension (07/27/13) WNL, doing well, tolerating meds 12/01/18 Glossitis History of myocardial infarction a. 1988. Hyperlipidemia Hyperlipidemia (02/26/13) CAD; LDL baseline 124 Hyperlipidemia (02/26/13) CAD; LDL baseline 124 Hypertension Lactose intolerance (04/07/14) Lower leg edema Lumbar radiculopathy (07/09/13) 11/19/16 MRI disc herniation L4-5, L5-S1. Nerve block/[facility] 10/2018. Lumbar spondylosis Lumbar stenosis Mass of soft tissue Numbness and tingling in left hand will always be there, left ulnar access for grafts for leg Obese Osteoarthritis Other B-complex deficiencies (05/20/12) PAD (peripheral artery disease) (05/08/17) bilateral iliac stents placed [facility] Dr. Packer f/u ov 05/14/18. rtc 6mo. w. MARTÍN's and bilateral iliac duplex. Robert Marin MD. [facility] vascular. Pain in right knee Peripheral vascular disease Pneumonitis Postoperative wound infection Pulmonary edema Restless leg syndrome Restless legs syndrome (02/26/13) Sepsis due to Escherichia coli [e. coli] Skin fissure Sleep apnea, obstructive Urinary urgency Vitamin D deficiency Xerostomia (12/09/13) Surgical History Bialteral illiac stents (05/07/17) Dr Packer Coronary Artery Bypass Gaft (CABG) (05/15/17) CAD s/p CABG x2 (05/15/17) [facility] (adm date 05/12/17.Discharge date 05/29/2017) History of Surgical Procedure a. Right trigger thumb release. b. Cardiac catheterization at [facility] in 1988, no obstruction found. c. Tonsillectomy. d. Bilateral endoscopic carpal tunnel release. e. Ganglion cyst removal from right wrist. f. Colonoscopy. g. Right knee arthroscopy. Open Carpal Tunnel release bilateral Replacement of total knee joint (07/18/14) Right total knee replacement Dr. Garcia at [facility] S/P CABG (coronary artery bypass graft) (05/15/17) x2 (05/15/17) Status post vascular bypass Tonsillectomy and adenoidectomy Trigger Finger release (06/08/13) Dr. 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 Retired. No smoking, ETOH, or illicit drug use. Exam Narrative Exam Narrative: GEN: awake, alert, oriented 3. Pleasant, well groomed, interactive. HEAD: Normocephalic, atraumatic ENT: Mucous membranes moist, oropharynx unremarkable, External ear exam unremarkable EYES: PERRL, EOMI NECK: Full ROM, no JERRY, no menigismus CHEST/RESP: Nontender, clear to auscultation bilateral, no wheeze/rhonchi/rales CARDIOVASCULAR: RRR, no murmur, rub melvi. 2+ Rad pulse bilateral ABDOMEN: Soft, nontender, no mass. +Bowel sounds EXT: Full ROM, no edema, no rash Neuro: Grossly normal neurologic exam, conversant, interactive. Psych: Speech fluent, thoughts congruent, affect normal
--- NOTE | 2020-11-10 13:30 | RT.EKG_ITS ---
APPROVED REPORT Exam: Resting ECG Patient Location: E HR:59 bpm ECG Measurements Heart Rate 59 AXIS [place] 195 P 57 QRSd 93 QRS 35 QT 397 T 90 QTc 394 Conclusion Sinus bradycardia. Anterior q present, old
[2020-11-10 14:01] LABS: Abs Immature Grans 0.04 10^3/uL (0.0-0.06); Absolute Basophil Count 0.05 10^3/uL (0.0-0.2); Absolute Eosinophil Count 0.28 10^3/uL (0.0-0.7); Absolute Lymphocyte Count 2.81 10^3/uL (1.2-3.4); Absolute Neutrophil Count 6.33 10^3/uL (1.2-6.7); Basophils % 0.5; Eosinophils % 2.8; HGB 11.7 g/dL (11.2-15.7); Immature Grans % 0.4; Lymphocytes % 27.8; MCH 29.8 pg (27.0-33.0); MCHC 32.5 % (32.0-36.0); MCV 91.6 fL (80-95); MPV 10.7 fL (8.0-11.0); Monocytes % 5.9; Neutrophils % 62.6; Nucleated RBC 0 %; RBC 3.93 10^6/uL (3.93-5.22); RDW 15.2 % (11.7-14.6); RDW-SD 50.8 fL; WBC 10.11 10^3/uL (4.4-10.8)
[2020-11-10 14:14] LABS: ALT 24 U/L (14-59); AST 18 U/L (15-37); Albumin 3.2 g/dL (3.4-5.0); Alkaline Phosphatase 84 U/L (46-116); Anion Gap 8.6 mmol/L (3-11); BUN 18 mg/dL (7-18); Bilirubin, Total 0.4 mg/dL (0.2-1.0); CO2 24.4 mmol/L (21.0-32.0); Calcium 9.3 mg/dL (8.5-10.1); Chloride 104 mmol/L (98-107); Glucose 112 mg/dL (74-106); Potassium 4.5 mmol/L (3.5-5.1); Sodium 137 mmol/L (136-145); Total Protein 6.8 g/dL (6.4-8.2)
[2020-11-10 14:17] LABS: Diff Comment PLT Morph Reviewed; RBC Morphology Normal; Troponin I < 0.05 ng/mL (<0.06)
--- OUTSIDE RECORDS SUMMARY | 2020-11-10 14:17 | XMS_ITS ---
:1950 Author Care Team Providers Name Role Phone [facility] Primary Care Provider [phone] HUYEN ARNETT DO Primary Care Provider [phone] PAU MAR MD Casino Runner [phone] YANIQUE DIAS MD Neurologist [phone] [facility] OTHER [phone] Allergies Code Code System Name Reaction Severity Status Onset 6211 RxNorm Lactose ? ? Active ? 667166 RxNorm Vicodin ? ? Active ? Medications Name Status Start Date Stop Date ? ? acetaminophen Active ? Not available 650mg Q6hrs PRN ascorbic acid (vitamin C) 1,000 mg tablet Active ? Not available Take 1 tablet every day by oral route. aspirin 81 mg tablet,delayed release Active ? Not available Take 1 tablet every day by oral route. atorvastatin 20 mg tablet Active ? Not av ailable Take 1 tablet every day by oral route. clopidogrel 75 mg tablet Active ? Not asia ilable Take 1 tablet every day by oral route. cyanocobalamin (vit B-12) 1,000 mcg tablet Active ? Not available Take 1 tablet every day by oral route. Debrox 6.5 % ear drops Active ? Not avail able INSTILL 5 DROPS INTO AFFECTED EAR(S) BY OTIC ROUTE 2 TIMES PER DAY ibuprofen Active ? Not available 800mg TID lorazepam 0.5 mg tablet Active ? Not avai lable Take 2 tablets twice a day by oral route as needed. metformin 500 mg tablet Active ? Not avai lable Take 1 tablet twice a day by oral route. multivitamin Active ? Not available 1 tab daily nystatin Active ? Not available 1 thin layer TID oxybutynin chloride 5 mg tablet Active ? Not available Take 1 tablet 3 times a day by oral route. Patanol 0.1 % eye drops Active ? Not avai lable INSTILL 1 DROP INTO AFFECTED EYE(S) BY OPHTHALMIC ROUTE 2 TIMES PER DAY AT AN INTERVAL OF 6 TO 8 HOURS pregabalin 150 mg capsule Active ? Not av ailable Take 1 capsule twice a day by oral route. Proventil HFA 90 mcg/actuation aerosol inhaler Active ? Not available Inhale 2 puffs every 4 hours by inhalation route. Vitamin B6 200 mg tablet,extended release Active ? Not available Take 1 tablet every day by oral route. Problems Name Status Onset Date Source ? Type 2 Diabetes Mellitus Active 09/25/2018 ? Disorder of Vitamin B12 Active 09/25/2018 ? Hyperlipidemia Active 09/25/2018 ? Benign Hypertension Active 09/25/2018 ? Diffuse Disease of Coronary Artery Active 09/25/2018 ? Peripheral Vascular Disease Active 09/25/2018 ? Osteoarthritis Active 09/25/2018 ? Chronic Low Back Pain Active 09/25/2018 ? Cramp in Lower Limb Associated with Sleep Active 2017 ? Irregular Heart Beat Active 12/29/2018 ? Obstructive Sleep Apnea Syndrome Active ? ? Coronary Arteriosclerosis Active ? ? Procedures None recorded. Results Lab Results None recorded. 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 Social History Tobacco Smoking Status Former Smoker Notes: quit ja n 16 1988, 3ppd when she did smokes Vaccine List None recorded. Plan of Care Reminders Provider Appointments None ? ? recorded. Lab None ? ? recorded. Referral None ? ? recorded. Procedures None ? ? recorded. Surgeries None ? ? recorded. Imaging None ? ? recorded. Vitals 07/24/2020 09:00AM Office 30 Height Weight BMI Blood Pressure 157.48 cm 135.17 kg 54.5 kg/m2 122/64 mm[Hg] 12/29/2018 11:00AM Office 30 Height Weight BMI Blood Pressure 157.48 cm 135.22 kg 54.5 kg/m2 110/68 mm[Hg] 10/01/2018 10:30AM New Patient 47 Height Weight BMI Blood Pressure 157.48 cm 133.86 kg 54 kg/m2 128/68 mm[Hg]
== END 2020-11-10 14:31 | disposition home or self-care (01) ==
PROVIDERS: Emergency Provider Emergency Medicine; PCP Student in an Organized Health Care Education/Training Program
DX: I95.0 Idiopathic hypotension (principal); I10 Essential (primary) hypertension; E11.9 Type 2 diabetes mellitus without complications; Z79.84 Long term (current) use of oral hypoglycemic drugs
CPT/HCPCS: 80053; 93005; 99284; 84484; 85025; 93010; 99283

== ENCOUNTER 2020-12-04 14:16 | Emergency (ER) | payer MEDICARE, OTHER, SELFPAY ==
[2020-12-04] VITALS (48 sets, daily range): BP systolic 120–152; BP diastolic 48–76; PULSE 64–86; RESP 12–22; TEMP 36.7; O2SAT 94–100
--- NOTE | 2020-12-04 14:15 | RT.EKG_ITS ---
APPROVED REPORT Exam: Resting ECG Patient Location: E HR:87 bpm ECG Measurements Heart Rate 87 AXIS MT 171 P 66 QRSd 97 QRS 43 QT 372 T 89 QTc 431 Conclusion Sinus rhythm...normal P axis, V-rate 60- 99 Low voltage, precordial leads...precordial leads <1.0mV Consider anteroseptal infarct...Q >30mS, dimin R, V1-V2 non-diagnostic EKG I have reviewed and interpreted ECG and agree with software generated interpretation.
--- NOTE | 2020-12-04 14:15 | DI.RAD_ITS ---
EXAM: XR CHEST 2V PA LATERAL CLINICAL HISTORY: chest pain. TECHNIQUE: 2D digital imaging was performed. COMPARISON: CR XR CHEST 2V PA LATERAL from 09/14/2019 FINDINGS: There is sternotomy was wires and evidence of previous CABG again noted. Increased markings medial right lung are unchanged. No new infiltrates nor pleural effusions. No pu lmonary edema. There is a transitional device now evident over anterior left chest, most probably a cardiac loop detector. IMPRESSION: No acute pulmonary findings.No significant radiographic change compared 09/14/2019. Cardiac findings as above. DATA REPOSITORY: RADIATION DOSE DELIVERED:
--- NOTE | 2020-12-04 14:22 | ED.GENADUL_ITS ---
Discharge Plan Disposition Patient Disposition: HOME Condition: Stable Discharge Details Clinical Impression: Nausea, Hypomagnesemia Primary Care Provider: Anayeli Chamberlain ED Provider: Jessica Toribio Home Meds and New Rx's Prescriptions: New ondansetron 4 mg tablet,disintegrating 4 mg PO Q6H PRN (Reason: nausea and vomiting) Qty: 14 RF: 0 meclizine 25 mg tablet 25 mg PO BID PRN (Reason: dizziness or vertigo) Qty: 7 RF: 0 Continued atorvastatin 40 mg tablet 40 mg PO QHS RF: 0 docusate sodium 100 mg capsule 100 mg PO DAILY RF: 0 loratadine 10 mg tablet 10 mg PO DAILY Qty: 90 RF: 3 albuterol sulfate [Proventil HFA] 90 mcg/actuation HFA aerosol inhaler 2 puff Inhalation Q4H PRN (Reason: bronchospasm) Qty: 1 RF: 1 metformin 1,000 mg tablet 500 mg PO BID Qty: 90 RF: 3 oxybutynin chloride 5 mg tablet 5 mg PO TID Qty: 270 RF: 3 lisinopril 10 mg tablet 10 mg PO DAILY Qty: 90 RF: 3 clopidogrel 75 mg tablet 75 mg PO DAILY Qty: 90 RF: 3 furosemide 20 mg tablet 40 mg PO DAILY Qty: 180 RF: 3 fluticasone propionate 50 mcg/actuation spray,suspension 2 spray NS DAILY PRN (Reason: nasal congestion) Qty: 16 RF: 3 ibuprofen 800 mg tablet 800 mg PO TID Qty: 90 RF: 0 cyanocobalamin (vitamin B-12) [Vitamin B-12] 1,000 MCG tablet 1,000 tab PO HS RF: 0 olopatadine [Patanol] 5 ML drops 1 drp Ophthalmic BID PRNRF: 0 nitroglycerin 0.4 MG tablet, sublingual 0.4 mg Sublingual PRN Qty: 25 RF: 3 pyridoxine (vitamin B6) [Vitamin B-6] 200 MG tablet extended release 200 mg PO DAILY RF: 0 ascorbic acid (vitamin C) [Vitamin C] 1,000 MG tablet 1,000 mg PO DAILY RF: 0 calcium carbonate-vitamin D3 1 EACH tablet 1 ea PO DAILY RF: 0 (DME) Blood Glucose Test 1 EACH strip 1 ea Miscellaneous BID Qty: 180 RF: 3 nystatin 15 GM cream 1 emmanuel Topical TID Qty: 30 RF: 1 tramadol 50 mg tablet 50 mg PO QHS PRN (Reason: pain) Qty: 90 RF: 3 pregabalin [Lyrica] 150 mg capsule 150 mg PO DIRECTED Qty: 270 RF: 3 metoprolol succinate 25 mg tablet extended release 24 hr 25 mg PO DAILY RF: 0 aspirin 81 MG tablet,chewable 81 mg PO DAILY RF: 0 Therapeutic-M 1 TAB tablet 1 tab PO DAILY Qty: 100 RF: 0 Discharge Instructions Instructions: Meclizine (By mouth), Ondansetron (By mouth), Acute Nausea and Vomiting (ED), Hypomagnesemia (ED) Additional Instructions: Your labs and imaging are reassurring today. Your history sounds most consiste nt with vertigo. With your recurrent nausea with Zofran as prescribed. If you have recurrent vertigo symptoms with the room spinning as he describes, he may use meclizine as prescribed. I would like you to follow-up with your primary care in the next week for reevaluation. If you develop chest pain, shortness of breath, difficulty breathing, fevers or other new/worsening symptoms please seek care urgently once again. Referrals: Anayeli Chamberlain, [Primary Care Provider] - Discharge Data Discharge Date/Time-TO BE ENTERED AT DEPARTURE: 12/04/20 19:34 Medical Decision Making <DANAY Espinal - Last Filed: 12/05/20 08:20> This is a 70-year-old female who reports past medical history that includes [place], anemia, anxiety, CAD, PVD, diabetes, hypertension, obesity, hyperlipidemia, chronic low back pain, presenting to the ER at the request of her primary care provider. She tells me that she has been nauseous for the last 2 days, no vomiting. She contacted her primary care provider to be evaluated in the office and was told to come to the ER for her symptoms. She states that on the way here she became anxious, and subsequently developed 6 of 10 left-sided chest pain that did not radiate anywhere. As stated in my HPI she is a rather vague and poor historian. She denies any abdominal pain whatsoever. Given her multiple comorbidities and chief complaint, will initiate a cardiac work-up, give a full dose aspirin as she did not take aspirin today, and 4 mg IV Zofran. EKG does not show STEMI. Patient told me 6 out of 10 chest pain, she has not taken any nitro. I went back in the room to discuss giving her nitro for her symptoms and she tells me that the chest pain that she had earlier was secondary to her previous surgery and she denies any chest pain at this time. Again she is extremely vague and poor historian. She tells me that she has had chronic chest pain that is related to her surgery in 2017 but denies any other new or changing pain in her abdomen or chest. Patient declines nitro. Laboratory values reveal a white blood cell count of 10.54 hemoglobin 11.8 hematocrit 35.9 platelet count 271. INR 1.1. Electrolytes unremarkable. Creatinine 1.08 with a GFR of 50.45. Glucose 145. Magnesium 1.6, will give 1 g IV. LFTs unremarkable. Troponin less than 0.05. BNP 431. Upon reevaluation patient reports that her nausea is significantly improved with the IV Zofran. Continues to deny any chest pain or abdominal pain. Patient is willing to await a repeat 3-hour troponin and EKG. At time of signout to my colleague DANAY Toribio also awaiting chest x-ray. Medical Records Medical records reviewed: Yes I reviewed the patient's medical records. Lab Data Lab results reviewed: Yes I reviewed the patient's lab results. Lab results narrative: Laboratory Tests Range/Units 12/04/20 12/04/20 12/04/20 14:40 14:40 14:40 WBC (4.4-10.8) 10^3/uL 10.54 RBC (3.93-5.22) 10^6/uL 3.99 Hgb (11.2-15.7) g/dL 11.8 Hct (36.0-46.0) % 35.9 L MCV (80-95) fL 90.0 MCH (27.0-33.0) pg 29.6 MCHC (32.0-36.0) % 32.9 RDW (11.7-14.6) % 15.1 H Plt Count (130-400) 10^3/uL 271 MPV (8.0-11.0) fL 10.9 Immature Gran % 0.5 Neutrophils % 67.7 Lymphocytes % 22.7 Monocytes % 7.2 Eosinophils % 1.0 Basophils % 0.9 Nucleated RBC % % 0 Absolute Neutrophils (1.2-6.7) 10^3/uL 7.14 H Absolute Lymphocytes (1.2-3.4) 10^3/uL 2.39 Absolute Monocytes (0.1-0.8) 10^3/uL 0.76 Absolute Eosinophils (0.0-0.7) 10^3/uL 0.11 Absolute Basophils (0.0-0.2) 10^3/uL 0.09 PT (9.3-11.0) sec 10.7 INR (0.9-1.1) 1.1 APTT (21.0-27.5) sec 20.8 L Sodium (136-145) mmol/L 138 Potassium (3.5-5.1) mmol/L 3.7 Chloride (98-107) mmol/L 103 Carbon Dioxide (21.0-32.0) mmol/L 26.1 Anion Gap (3-11) mmol/L 8.9 BUN (7-18) mg/dL 16 Creatinine (0.55-1.02) mg/dL 1.08 H Estimated GFR/1.73 m2 (mL/min/1.73m2) 50.45 Glucose (74-106) mg/dL 154 H Calcium (8.5-10.1) mg/dL 9.3 Magnesium (1.8-2.4) mg/dL 1.6 L Total Bilirubin (0.2-1.0) mg/dL 0.8 AST (15-37) U/L 25 ALT (14-59) U/L 35 Alkaline Phosphatase (46-116) U/L 99 Troponin I (<0.06) ng/mL < 0.05 NT-Pro-B Natriuret Pep (<300) pg/mL 431 H Total Protein (6.4-8.2) g/dL 7.5 Albumin (3.4-5.0) g/dL 3.7 ECG Data Attestation: I personally reviewed and interpreted this ECG (s) as follows: Interpretation: Please see official report by Dr. Evans. Sinus rhythm, ventricular rate of 87. PVC. No STEMI. <DANAY Fonseca - Last Filed: 12/04/20 23:48> Patient is myself from Joey Estevez PA-C. Please see his initial note regarding history, presentation and exam. In brief, patient is a 70-year-old female with history of CABG, PAD, PVD presenting today with chief complaint of nausea x2 days. Patient also had intermittently reported some chest pain while driving here associated with my anxiety. Patient has been asymptomatic since being here. Had denied any chest pain prior to feeling anxious. Also denied chest pain to nursing staff. Work-up thus far has been without significant anomaly. No significant abnormality on CBC, coags, CMP. Her creatinine was slightly elevated at 1.08 this appears to be baseline for the patient. Initial troponin was less than 0.05. BNP was 431, this is significantly lower than the patient has been measured historically. At change of shift, imaging and repeat troponin were pending. CT of the patient's head was reviewed by radiologist: FINDINGS: Brain: No hemorrhage. Unremarkable white matter. No mass effect. Cerebral ventricles: No ventriculomegaly. Bones/joints: Unremarkable. No acute fracture. Paranasal sinuses: Visualized sinuses are unremarkable. No fluid levels. Mastoid air cells: Visualized mastoid air cells are well aerated. Soft tissues: Unremarkable. IMPRESSION: No acute intracranial abnormality. Chest x-ray was reviewed by radiologist: FINDINGS: Lungs: Hyperinflated lungs. No airspace disease or consolidation Pleural space: Unremarkable. No pleural effusion. No pneumothorax. Heart/Mediastinum: Evidence of prior coronary artery bypass graft procedure. Bones/joints: Median sternotomy wires. IMPRESSION: COPD. Repeat troponin remains less than 0.05. Discussed these findings with the patient as well as her daughter. Patient I discussed her nausea. She reports feeling time she was nauseated here was and she rolled over in her stretcher to get into the stretcher for CAT scan. She now is able to link it to. She states that with movements, particular quick movements of her head, she developed dizziness which she further describes as the room spinning. She reports this when she has the sensation that she has nausea. She reports that she has had vertigo historically and that feels the same. Patient I again discussed her chest pain and she continues to reiterate that she believes this is more anxiety driven and that she is not clearly experiencing chest pain like she has historically. Patient was given 25 mg of meclizine. She is able to sit up into the bed and move about without any recurrence of her symptoms. I do feel that this is likely vertigo. As she is not currently symptomatic, I was unable to physically assess for findings consistent with benign paroxysmal vertigo. I did advise close follow-up with primary care. I also relayed the need for close follow-up with her to her daughter. Strict return precautions were discussed. Will prescribe ondansetron in the event that her nausea comes back as well as meclizine in the event of her vertigo returns. Patient is a fairly poor historian, I did relay this to the daughter as well. It is for this reason I feel she should be checked within the next few days. However questions or concerns were addressed and she is in agreement this plan. HPI <DANAY Espinal - Last Filed: 12/05/20 08:20> General Mode of arrival: ambulatory . Date/Time Provider Initiated Documentation: 12/04/20 14:22 . Limitations to Documentation: no limitations . Information obtained by: patient . HPI Narrative: This is a 70-year-old female with past medical history that includes anxiety, CAD, diabetes type 2, hypertension, chronic back pain, obesity, peripheral artery disease, [place], CABG in 2017, taking Plavix, presenting to the ER today at the direction of her primary care office. Unfortunately, the patient is a rather vague and poor historian. Patient reports that she has felt nauseous for the last 2 days, but has not vomited. She tells me that she contacted her primary care provider today and today instructed her to the ER because the nausea can be a symptom of Covid. Subsequently on the drive over here she began to feel anxious which led to her having left-sided chest pain that is nonreproducible, does not radiate, 6 out of 10. Patient denies recent illness or trauma. She denies any sick contacts, fever, headache, shortness of breath, cough, abdominal pain, vomiting, dysuria, numbness, tingling, weakness, pain or swelling of her legs. She states that she has taken her routine medications as directed. Related Data Home Medications Medication Instructions Recorded Confirmed cyanocobalamin (vitamin B-12) 1,000 tab PO HS 02/22/13 11/13/20 [Vitamin B-12] olopatadine [Patanol] 1 drp OPHTHALMIC BID PRN drp 02/22/13 12/04/20 aspirin 81 mg PO DAILY 06/21/13 11/13/20 nitroglycerin 0.4 mg SUBLINGUAL PRN #25 tab 05/23/16 12/04/20 ascorbic acid (vitamin C) [Vitamin 1,000 mg PO DAILY 11/07/16 11/13/20 C] calcium carbonate-vitamin D3 1 ea PO DAILY 11/07/16 11/13/20 pyridoxine (vitamin B6) [Vitamin 200 mg PO DAILY 11/07/16 12/04/20 B-6] Therapeutic-M 1 tab PO DAILY #100 tab 09/21/17 11/13/20 Blood Glucose Test #180 strip 03/19/18 11/13/20 nystatin 1 emmanuel TOPICAL TID #30 gm 04/10/18 12/04/20 atorvastatin 40 mg tablet 40 mg PO QHS 01/28/19 11/13/20 albuterol sulfate 90 mcg/actuation 2 puff INHALATION Q4H PRN #1 gm 07/05/19 11/13/20 aerosol inhaler docusate sodium 100 mg capsule 100 mg PO DAILY 08/11/19 11/13/20 loratadine 10 mg tablet 10 mg PO DAILY #90 tab 08/11/19 12/04/20 clopidogrel 75 mg tablet 75 mg PO DAILY #90 tab-cap 12/02/19 11/13/20 furosemide 20 mg tablet 40 mg PO DAILY #180 tab 12/02/19 12/04/20 lisinopril 10 mg tablet 10 mg PO DAILY #90 tab-cap 12/02/19 12/04/20 metformin 1,000 mg tablet 500 mg PO BID #90 tab-cap 12/02/19 12/04/20 oxybutynin chloride 5 mg tablet 5 mg PO TID #270 tab-cap 12/02/19 12/04/20 pregabalin 150 mg capsule 150 mg PO DIRECTED #270 tab-cap 08/16/20 12/04/20 tramadol 50 mg tablet 50 mg PO QHS PRN #90 tab 08/16/20 12/04/20 fluticasone propionate 50 2 spray NS DAILY PRN #16 gm 11/13/20 11/13/20 mcg/actuation nasal spray,suspension ibuprofen 800 mg tablet 800 mg PO TID #90 tab-cap 11/13/20 12/04/20 metoprolol succinate 25 mg 25 mg PO DAILY 11/15/20 12/04/20 tablet,extended release 24 hr meclizine 25 mg PO BID PRN #7 tab 12/04/20 ondansetron 4 mg PO Q6H PRN #14 tab 12/04/20 Previous Rx's Medication Instructions Recorded Therapeutic-M 1 tab PO DAILY #100 tab 09/21/17 nystatin 1 emmanuel TOPICAL TID #30 gm 04/10/18 albuterol sulfate 90 mcg/actuation 2 puff INHALATION Q4H PRN #1 gm 07/05/19 aerosol inhaler loratadine 10 mg tablet 10 mg PO DAILY #90 tab 08/11/19 clopidogrel 75 mg tablet 75 mg PO DAILY #90 tab-cap 12/02/19 furosemide 20 mg tablet 40 mg PO DAILY #180 tab 12/02/19 lisinopril 10 mg tablet 10 mg PO DAILY #90 tab-cap 12/02/19 metformin 1,000 mg tablet 500 mg PO BID #90 tab-cap 12/02/19 oxybutynin chloride 5 mg tablet 5 mg PO TID #270 tab-cap 12/02/19 pregabalin 150 mg capsule 150 mg PO DIRECTED #270 tab-cap 08/16/20 tramadol 50 mg tablet 50 mg PO QHS PRN #90 tab 08/16/20 fluticasone propionate 50 2 spray NS DAILY PRN #16 gm 11/13/20 mcg/actuation nasal spray,suspension ibuprofen 800 mg tablet 800 mg PO TID #90 tab-cap 11/13/20 meclizine 25 mg PO BID PRN #7 tab 12/04/20 ondansetron 4 mg PO Q6H PRN #14 tab 12/04/20 Allergies Allergy/AdvReac Type Severity Reaction Status Date / Time hydrocodone bitartrate Allergy Severe severe Verified 12/04/20 14:25 [From Vicodin] facial swelling amoxicillin Allergy rash, SOB Verified 12/04/20 14:25 lactose AdvReac Intermediate Diarrhea Verified 12/04/20 14:25 Environmental AdvReac Intermediate Congestion Uncoded 12/04/20 14:25 General ALEXANDER: 4 Review of Systems <DANAY Espinal - Last Filed: 12/05/20 08:20> Constitutional Constitutional: Denies fatigue, Denies fever(s), Denies headache(s) and Denies weakness Eyes Eyes: Denies change in vision ENT Ears, Nose, Mouth, and Throat: Denies headache(s) and Denies neck pain Cardiovascular Cardiovascular: Reports chest pain and Denies dyspnea Respiratory Respiratory: Denies cough and Denies dyspnea Gastrointestinal Gastrointestinal: Denies abdominal pain, Reports nausea and Denies vomiting Genitourinary Genitourinary: Denies dysuria Musculoskeletal Musculoskeletal: Reports back pain (Chronic), Denies neck pain, Denies numbness and Denies tingling Integumentary/Breasts Skin/Breast: Denies rash Neurologic Neurologic: Denies headache(s), Denies numbness, Denies tingling and Denies weakness Endocrine Endocrine: Denies fatigue Hematologic/Lymphatic Hematologic/Lymphatic: Reports easy bleeding and Reports easy bruising PFS <DANAY Espinal - Last Filed: 12/05/20 08:20> Medical History Acute myocardial infarction (07/09/13) MPI 11/2014 no ischemia EF 52%; h/o inferolateral infarction 1988 due to sp asm, neg coronaries, attributed to smoking Allergic rhinitis (07/29/13) Anemia Anxiety about health B12 deficiency (05/20/12) Benign hypertension CAD (coronary artery disease) Chronic diarrhea (07/29/13) Chronic low back pain without sciatica Chronic rhinitis (11/04/13) Chronic right-sided low back pain with left-sided sciatica (06/16/18) 07/15/18 Seen [place] [facility], Lumbar Spine MRI Cor athrscl-uns vessel (05/20/12) hx [place] Coronary artery disease Coronary atherosclerosis (05/20/12) hx [place] Cystocele Cystocele, midline (02/26/13) 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 (07/09/13) Deviated nasal septum (11/04/13) Diabetes mellitus (10/30/12) A1c goal 7.5 04/24/18 visit w/ [facility]. Plan:document food and BS 4-5 days. mail them in for review and increase vegetables at night. Diabetes mellitus, type 2 Diabetic polyneuropathy associated with type 2 diabetes mellitus (11/10/17) Diastolic dysfunction Disorder of vitamin B12 Edema (07/09/13) Improved, 09/2018 Essential hypertension (07/27/13) WNL, doing well, tolerating meds 12/01/18 Glossitis History of myocardial infarction a. 1988. Hyperlipidemia Hyperlipidemia (02/26/13) CAD; LDL baseline 124 Hyperlipidemia (02/26/13) CAD; LDL baseline 124 Hypertension Lactose intolerance (04/07/14) Lower leg edema Lumbar radiculopathy (07/09/13) 11/19/16 MRI disc herniation L4-5, L5-S1. Nerve block[place] [place]. Lumbar spondylosis Lumbar stenosis Mass of soft tissue Numbness and tingling in left hand will always be there, left ulnar access for grafts for leg Obese Osteoarthritis Other B-complex deficiencies (05/20/12) PAD (peripheral artery disease) (05/08/17) bilateral iliac stents [place] [facility] [place] Packer f/u ov 05/14/18. rtc 6mo. w. MARTÍN's and bilateral iliac duplex. Robert Marin MD. [facility]. Pain in right knee Peripheral vascular disease Pneumonitis Postoperative wound infection Pulmonary edema Restless leg syndrome Restless legs syndrome (02/26/13) Sepsis due to Escherichia coli [e. coli] Skin fissure Sleep apnea, obstructive Urinary urgency Vitamin D deficiency Xerostomia (12/09/13) Surgical History Bialteral illiac stents (05/07/17) Dr Packer Coronary Artery Bypass Gaft (CABG) (05/15/17) CAD s/p CABG x2 (05/15/17) [facility] [place]adm date 05/12/17.Discharge date 05/29/2017) History of Surgical Procedure a. Right trigger thumb release. b. Cardiac catheter[place] [facility] [place], no obstruction found. c. Tonsillectomy. d. Bilateral endoscopic carpal tunnel release. e. Ganglion cyst removal from right wrist. f. Colonoscopy. g. Right knee arthroscopy. Open Carpal Tunnel release bilateral Replacement of total knee joint (07/18/14) Right total knee replacement Dr. Garcia at [facility] S/P CABG (coronary artery bypass graft) (05/15/17) x2 (05/15/17) Status post vascular bypass Tonsillectomy and adenoidectomy Trigger Finger release (06/08/13) Dr. Garica Family History Other Benign hypertension Social History Smoking/Tobacco Use Status: Former Tobacco Use Smoking risk assessment performed?: Yes Alcohol Intake: never Drug use: Never Substance use type: does not use Housing: house Number of Children: 2 number of grandchildren: 2 Communication Needs: None current occupation: retired from [employer] Current gender identity: female What type of physical activity do you participate in: none Seatbelt use: always Drive intox or ride w/intox 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 Retired. No smoking, ETOH, or illicit drug use. Exam <DANAY Espinal - Last Filed: 12/05/20 08:20> Const General: cooperative, healthy appearing, comfortable and no acute distress Orientation: alert, awake, oriented to person and oriented to place HENWA Head: normal to inspection, normocephalic and atraumatic Face and sinus: normal facial exam Mouth: moist mucous membranes Eyes General: appearance normal, both eyes and all related structures Alignment and Position: alignment normal Periorbital: periorbital findings normal Eyelids: eyelids normal Conjunctivae: conjunctivae normal Sclera: sclerae normal Cornea: corneas normal Pupils: PERRL EOM: EOM intact bilaterally Direct ophthalmoscopy: normal light reflex Neck Neck: normal visual inspection, full ROM, no meningeal signs, trachea midline, supple and nontender Chest Chest: normal palpation of entire chest wall Resp Effort & Inspection: normal respiratory effort and able to speak in complete sentences Auscultation: clear to auscultation bilaterally Cardio Rate: regular rate Rhythm: regular rhythm GI Inspection: normal to inspection and obesity Palpation: soft, not firm, no guarding, no pulsatile masses and nontender Auscultation: normal bowel sounds Back/Spine/Pelvis Back: back tenderness (Diffuse lumbar, mild) Skin General skin exam: no rashes or lesions noted Neuro General: patient alert, patient awake, oriented Patient Orientation: Person and Place, moves all extremities and no focal motor deficits Cranial Nerves: CN's II-XI intact bilaterally Cognition: normal cognition Speech: speech normal Motor: muscle tone normal throughout Sensory Exam: no sensory deficits noted Extrem General: normal to inspection, full ROM, capillary refill normal, no pedal edema and no calf tenderness Psych Appearance: grossly normal Mental Status: mental status grossly normal Sign Out <DANAY Espinal - Last Filed: 12/05/20 08:20> Sign Out Data: Sign Out Comment: Complicated past medical history, CABG in 2017, on Plavix, presenting for nausea for the past 2 days. Initially reported chest pain that presented after she became anxious on the way here, offered nitro, declined, tells me she did not have any chest pain. Vague and poor historian. Given Zofran for her nausea and a full dose aspirin. Patient appears well, nontoxic. Initial work-up thus far unremarkable. Agreeable to repeat troponin and EKG. Chest x-ray has not been completed. Last updated by Blade Estevez PA at 12/04/20 15:51
--- NOTE | 2020-12-04 14:45 | DI.CT_ITS ---
EXAM: CT HEAD WO CLINICAL HISTORY: dizzy,nausea. TECHNIQUE: Imaging Protocol: Axial computed tomography images with coronal and sagittal reformatted images were created and reviewed COMPARISON: CT HEAD WITHOUT CONTRAST from 07/28/2017 FINDINGS: There are no skull fractures nor fluid in the visualized paranasal sinuses. There is no evidence of intracranial hemorrhage, mass effect, or shift of midline structures. There are no extra-axial fluid collections. The ventricles are not enlarged or shifted and there is no blo od within the ventricular system nor within the basal cisterns. IMPRESSION: No acute intracranial findings on this noninfused CT scan of the brain. No significant change compar ed to prior CT scan of July 2017. RADIATION DOSE DELIVERED: 824.48mGy.cm Total DLP DATA REPOSITORY: All CT scans at this facility are submitted to the National Radiology Data Registry (NRDR) Dose Index Registry (DIR) with the [employer] (ACR). RADIATION OPTIMIZATION: All CT scans at this facility use at least one of these dose optimization te chniques: automated exposure control; mA and/or kV adjustment per patient size (includes targeted exa ms where dose is matched to clinical indication); or iterative reconstruction.
[2020-12-04] MEDS: Ondansetron 4 MG/2 ML VIAL IVP (14:54)
[2020-12-04] MEDS: Aspirin 81 MG CHEW 243 MG CH (14:54)
[2020-12-04] MEDS: Normal Saline 1,000 ML 125 ML IV (14:55)
[2020-12-04 15:01] LABS: Abs Immature Grans 0.05 10^3/uL (0.0-0.06); Absolute Basophil Count 0.09 10^3/uL (0.0-0.2); Absolute Eosinophil Count 0.11 10^3/uL (0.0-0.7); Absolute Lymphocyte Count 2.39 10^3/uL (1.2-3.4); Absolute Monocyte Count 0.76 10^3/uL (0.1-0.8); Absolute Neutrophil Count 7.14 10^3/uL (1.2-6.7); Basophils % 0.9; HCT 35.9 % (36.0-46.0); HGB 11.8 g/dL (11.2-15.7); Immature Grans % 0.5; Lymphocytes % 22.7; MCH 29.6 pg (27.0-33.0); MCHC 32.9 % (32.0-36.0); MPV 10.9 fL (8.0-11.0); Monocytes % 7.2; Neutrophils % 67.7; Nucleated RBC 0 %; Platelet Count 271 10^3/uL (130-400); RBC 3.99 10^6/uL (3.93-5.22); RDW 15.1 % (11.7-14.6); RDW-SD 49.8 fL; WBC 10.54 10^3/uL (4.4-10.8)
[2020-12-04 15:05] LABS: INR 1.1 (0.9-1.1); PTT Activated 20.8 sec (21.0-27.5); Prothrombin Time 10.7 sec (9.3-11.0)
[2020-12-04 15:11] LABS: ALT 35 U/L (14-59); AST 25 U/L (15-37); Albumin 3.7 g/dL (3.4-5.0); Alkaline Phosphatase 99 U/L (46-116); Anion Gap 8.9 mmol/L (3-11); BUN 16 mg/dL (7-18); Bilirubin, Total 0.8 mg/dL (0.2-1.0); CO2 26.1 mmol/L (21.0-32.0); CREATININE 1.08 mg/dL (0.55-1.02); Calcium 9.3 mg/dL (8.5-10.1); Chloride 103 mmol/L (98-107); Estimated GFR 50.45 (mL/min/1.73m2); Glucose 154 mg/dL (74-106); Magnesium 1.6 mg/dL (1.8-2.4); NT-proBNP 431 pg/mL (<300); Potassium 3.7 mmol/L (3.5-5.1); Sodium 138 mmol/L (136-145); Total Protein 7.5 g/dL (6.4-8.2)
[2020-12-04 15:12] LABS: Troponin I < 0.05 ng/mL (<0.06)
[2020-12-04] MEDS: MAGNESIUM SULFATE 1 GM/100 ML BAG IVPB (16:11)
--- NOTE | 2020-12-04 16:16 | DI.VRAD_ITS ---
PROCEDURE INFORMATION: Exam: CT Head Without Contrast Exam date and time: 12/04/2020 3:58 PM Age: 70 years old Clinical indication: Dizziness and other: Nausea; Patient HX: Dizzy, nausea TECHNIQUE: Imaging protocol: Computed tomography of the head without contrast. COMPARISON: CT HEAD WITHOUT CONTRAST 07/28/2017 4:22 PM FINDINGS: Brain: No hemorrhage. Unremarkable white matter. No mass effect. Cerebral ventricles: No ventriculomegaly. Bones/joints: Unremarkable. No acute fracture. Paranasal sinuses: Visualized sinuses are unremarkable. No fluid levels. Mastoid air cells: Visualized mastoid air cells are well aerated. Soft tissues: Unremarkable. IMPRESSION: No acute intracranial abnormality. Dictated and Authenticated by: Michael Middleton MD. Ordering:JULIET Murguia MD
--- NOTE | 2020-12-04 16:17 | DI.VRAD_ITS ---
PROCEDURE INFORMATION: Exam: XR Chest, 2 Views Exam date and time: 12/04/2020 2:31 PM Age: 70 years old Clinical indication: Chest pain TECHNIQUE: Imaging protocol: XR of the chest Views: 2 views. COMPARISON: CR XR CHEST 2V PA LATERAL 09/14/2019 1:19 PM FINDINGS: Lungs: Hyperinflated lungs. No airspace disease or consolidation Pleural space: Unremarkable. No pleural effusion. No pneumothorax. Heart/Mediastinum: Evidence of prior coronary artery bypass graft procedure. Bones/joints: Median sternotomy wires. IMPRESSION: COPD. Dictated and Authenticated by: Michael Middleton MD. Ordering:JULIET Murguia MD
--- NOTE | 2020-12-04 17:15 | RT.EKG_ITS ---
APPROVED REPORT Exam: Resting ECG Patient Location: E HR:67 bpm ECG Measurements Heart Rate 67 AXIS NE 198 P 39 QRSd 94 QRS 36 QT 397 T 97 QTc 420 Conclusion Sinus rhythm...normal P axis, V-rate 60- 99 Atrial premature complex...SV complex w/ short R-R interval Low voltage, precordial leads...precordial leads <1.0mV Anteroseptal infarct, old...Q >40mS, V1-V2 I have reviewed and interpreted ECG and agree with software generated interpretation.
[2020-12-04 18:28] LABS: Troponin I < 0.05 ng/mL (<0.06)
[2020-12-04] MEDS: Meclizine 25 MG TAB PO ×2 (18:58→19:33)
[2020-12-04] MEDS: Ondansetron O.D.T. 4 MG TABEF, 3 TABS/BTL PO (19:34)
== END 2020-12-04 19:34 | disposition home or self-care (01) ==
PROVIDERS: Physician Assistant; Emergency Provider Physician Assistant; PCP Student in an Organized Health Care Education/Training Program
DX: E83.42 Hypomagnesemia (principal); R11.0 Nausea; I10 Essential (primary) hypertension; E11.9 Type 2 diabetes mellitus without complications; Z79.84 Long term (current) use of oral hypoglycemic drugs
CPT/HCPCS: 80053; 93005; 96361; 96365; 96375; 99285; 70450; 71046; 83735; 83880; 84484; 85025; 85610; 85730; 93010; J2405; J3475

== ENCOUNTER 2020-12-26 10:11 | Emergency (ER) | payer MEDICARE, OTHER, SELFPAY ==
[2020-12-26] VITALS (18 sets, daily range): BP systolic 101–117; BP diastolic 39–69; PULSE 65–72; RESP 10–12; TEMP 36.5; O2SAT 93–100
--- NOTE | 2020-12-26 10:35 | ED.GENADUL_ITS ---
Discharge Plan Disposition Patient Disposition: HOME Condition: Stable Discharge Details Clinical Impression: Low BP, Dehydration Primary Care Provider: Anayeli Chamberlain ED Provider: Sukumar Simmons Home Meds and New Rx's Prescriptions: Continued atorvastatin 40 mg tablet 40 mg PO QHS RF: 0 docusate sodium 100 mg capsule 100 mg PO DAILY RF: 0 loratadine 10 mg tablet 10 mg PO DAILY Qty: 90 RF: 3 albuterol sulfate [Proventil HFA] 90 mcg/actuation HFA aerosol inhaler 2 puff Inhalation Q4H PRN (Reason: bronchospasm) Qty: 1 RF: 1 oxybutynin chloride 5 mg tablet 5 mg PO TID Qty: 270 RF: 3 furosemide 20 mg tablet 40 mg PO DAILY Qty: 180 RF: 3 fluticasone propionate 50 mcg/actuation spray,suspension 2 spray NS DAILY PRN (Reason: nasal congestion) Qty: 16 RF: 3 ibuprofen 800 mg tablet 800 mg PO TID Qty: 90 RF: 0 cyanocobalamin (vitamin B-12) [Vitamin B-12] 1,000 MCG tablet 1,000 tab PO HS RF: 0 olopatadine [Patanol] 5 ML drops 1 drp Ophthalmic BID PRNRF: 0 nitroglycerin 0.4 MG tablet, sublingual 0.4 mg Sublingual PRN Qty: 25 RF: 3 pyridoxine (vitamin B6) [Vitamin B-6] 200 MG tablet extended release 200 mg PO DAILY RF: 0 ascorbic acid (vitamin C) [Vitamin C] 1,000 MG tablet 1,000 mg PO DAILY RF: 0 calcium carbonate-vitamin D3 1 EACH tablet 1 ea PO DAILY RF: 0 (DME) Blood Glucose Test 1 EACH strip 1 ea Miscellaneous BID Qty: 180 RF: 3 nystatin 15 GM cream 1 emmanuel Topical TID Qty: 30 RF: 1 tramadol 50 mg tablet 50 mg PO QHS PRN (Reason: pain) Qty: 90 RF: 3 pregabalin [Lyrica] 150 mg capsule 150 mg PO DIRECTED Qty: 270 RF: 3 clopidogrel 75 mg tablet 75 mg PO DAILY Qty: 90 RF: 3 lisinopril 10 mg tablet 10 mg PO DAILY Qty: 90 RF: 3 metformin 1,000 mg tablet 500 mg PO BID Qty: 90 RF: 3 metoprolol succinate 25 mg tablet extended release 24 hr 25 mg PO DAILY Qty: 90 RF: 3 aspirin 81 MG tablet,chewable 81 mg PO DAILY RF: 0 Therapeutic-M 1 TAB tablet 1 tab PO DAILY Qty: 100 RF: 0 ondansetron 4 mg tablet,disintegrating 4 mg PO Q6H PRN (Reason: nausea and vomiting) Qty: 14 RF: 0 meclizine 25 mg tablet 25 mg PO BID PRN (Reason: dizziness or vertigo) Qty: 7 RF: 0 Discharge Instructions Instructions: Dehydration (ED) Additional Instructions: decrease your lisionpril from 10mg daily to 5mg daily I placed you on our follow up list to see your primary care provider within 1 week for recheck if you feel more ill, have fevers, difficulty breathing or chest pain return to the emergency department Medical Decision Making 70 yo female with hx of prior nstemi, hld, htn, peripheral artery disease, dm, who comes in with chief complaint of general tiredness for over a month and lack of appetite. She denies vomit, fevers, abdominal pain, chest pain, shortness of breath, headaches. She has been having vertigo per the patient when she turns her head to the left she gets dizzy and lasts a few seconds and has a history of prior vertigo. She was at PT today to be seen for her vertigo and they checked her bp and it was 80-90 systolic so was referred here, she states if not for PT requesting her to be here she would not have come here. She has no focal neuro m otor or sensation deficits on exam, caox4, does have horizontal nystagmus when looking to the left in both eyes, no significant cranial nerve deficits and clear speech with reassuring HINTS exam which makes peripheral vertigo and bppv specifically the most likely cause of her intermittent dizziness and has no findings to suggest central vertigo. With regards to her general tiredness she has no findings to suggest entities such as cva on her exam and denies any infectious symptoms, no cough, fever, chills, headache, sob, chest pain, abdominal pain and no complaints to suggest acs. She is on metoprolol, lisinopril and furosemide so this could be from over medication. Will evaluate for anemia and possible thyroid disorder and reevaluate. labs show mild increase in bun and creatinine likely from dehydration. She feels better with ivf and bp now 120/60 on exam now. I will have her decrease her lisinopril from 10mg to 5mg daily and have her f/u with pcp within a week, return precautions given Differential Diagnosis Differential Diagnosis: anemia, polypharmacy, dehydration Medical Records Medical records reviewed: Yes I reviewed the patient's medical records. Lab Data Lab results reviewed: Yes I reviewed the patient's lab results. HPI General Mode of arrival: ambulatory . Date/Time Provider Initiated Documentation: 12/26/20 10:12 . Limitations to Documentation: no limitations . Information obtained by: patient . History of Present Illness 70 year old F presents to the emergency department with the chief complaint of tired, described as moderate, Patient started experiencing this month(s) (1) and it has been constant. No relieving factors improve symptom(s), No exacerbating factors reported . Patient notes other (vertigo). Related Data Home Medications Medication Instructions Recorded Confirmed cyanocobalamin (vitamin B-12) 1,000 tab PO HS 02/22/13 12/26/20 [Vitamin B-12] olopatadine [Patanol] 1 drp OPHTHALMIC BID PRN drp 02/22/13 12/26/20 aspirin 81 mg PO DAILY 06/21/13 12/26/20 nitroglycerin 0.4 mg SUBLINGUAL PRN #25 tab 05/23/16 12/26/20 ascorbic acid (vitamin C) [Vitamin 1,000 mg PO DAILY 11/07/16 12/26/20 C] calcium carbonate-vitamin D3 1 ea PO DAILY 11/07/16 12/26/20 pyridoxine (vitamin B6) [Vitamin 200 mg PO DAILY 11/07/16 12/26/20 B-6] Therapeutic-M 1 tab PO DAILY #100 tab 09/21/17 12/26/20 Blood Glucose Test #180 strip 03/19/18 12/26/20 nystatin 1 emmanuel TOPICAL TID #30 gm 04/10/18 12/26/20 atorvastatin 40 mg tablet 40 mg PO QHS 01/28/19 12/26/20 albuterol sulfate 90 mcg/actuation 2 puff INHALATION Q4H PRN #1 gm 07/05/19 12/26/20 aerosol inhaler docusate sodium 100 mg capsule 100 mg PO DAILY 08/11/19 12/26/20 loratadine 10 mg tablet 10 mg PO DAILY #90 tab 08/11/19 12/26/20 furosemide 20 mg tablet 40 mg PO DAILY #180 tab 12/02/19 12/26/20 oxybutynin chloride 5 mg tablet 5 mg PO TID #270 tab-cap 12/02/19 12/26/20 pregabalin 150 mg capsule 150 mg PO DIRECTED #270 tab-cap 08/16/20 12/26/20 tramadol 50 mg tablet 50 mg PO QHS PRN #90 tab 08/16/20 12/26/20 fluticasone propionate 50 2 spray NS DAILY PRN #16 gm 11/13/20 12/26/20 mcg/actuation nasal spray,suspension ibuprofen 800 mg tablet 800 mg PO TID #90 tab-cap 11/13/20 12/26/20 meclizine 25 mg PO BID PRN #7 tab 12/04/20 12/26/20 ondansetron 4 mg PO Q6H PRN #14 tab 12/04/20 12/26/20 clopidogrel 75 mg tablet 75 mg PO DAILY #90 tab-cap 12/05/20 12/26/20 lisinopril 10 mg tablet 10 mg PO DAILY #90 tab-cap 12/05/20 12/26/20 metformin 1,000 mg tablet 500 mg PO BID #90 tab-cap 12/05/20 12/26/20 metoprolol succinate 25 mg 25 mg PO DAILY #90 tab 12/05/20 12/26/20 tablet,extended release 24 hr Previous Rx's Medication Instructions Recorded Therapeutic-M 1 tab PO DAILY #100 tab 09/21/17 nystatin 1 emmanuel TOPICAL TID #30 gm 04/10/18 albuterol sulfate 90 mcg/actuation 2 puff INHALATION Q4H PRN #1 gm 07/05/19 aerosol inhaler loratadine 10 mg tablet 10 mg PO DAILY #90 tab 08/11/19 furosemide 20 mg tablet 40 mg PO DAILY #180 tab 12/02/19 oxybutynin chloride 5 mg tablet 5 mg PO TID #270 tab-cap 12/02/19 pregabalin 150 mg capsule 150 mg PO DIRECTED #270 tab-cap 08/16/20 tramadol 50 mg tablet 50 mg PO QHS PRN #90 tab 08/16/20 fluticasone propionate 50 2 spray NS DAILY PRN #16 gm 12/21/20 mcg/actuation nasal spray,suspension ibuprofen 800 mg tablet 800 mg PO TID #90 tab-cap 11/13/20 meclizine 25 mg PO BID PRN #7 tab 12/04/20 ondansetron 4 mg PO Q6H PRN #14 tab 12/04/20 clopidogrel 75 mg tablet 75 mg PO DAILY #90 tab-cap 12/05/20 lisinopril 10 mg tablet 10 mg PO DAILY #90 tab-cap 12/05/20 metformin 1,000 mg tablet 500 mg PO BID #90 tab-cap 12/05/20 metoprolol succinate 25 mg 25 mg PO DAILY #90 tab 12/05/20 tablet,extended release 24 hr Allergies Allergy/AdvReac Type Severity Reaction Status Date / Time hydrocodone bitartrate Allergy Severe severe Verified 12/26/20 10:27 [From Vicodin] facial swelling amoxicillin Allergy rash, SOB Verified 12/26/20 10:27 lactose AdvReac Intermediate Diarrhea Verified 12/26/20 10:27 Environmental AdvReac Intermediate Congestion Uncoded 12/26/20 10:27 General Stated Complaint: GenMedical ALEXANDER: 3 Review of Systems All systems reviewed & are unremarkable except as noted in HPI and below Constitutional Constitutional: Denies chills and Denies fever(s) Cardiovascular Cardiovascular: Denies chest pain and Denies dyspnea Respiratory Respiratory: Denies cough and Denies dyspnea Gastrointestinal Gastrointestinal: Denies abdominal pain, Denies nausea and Denies vomiting Musculoskeletal Musculoskeletal: Denies joint swelling PFSH Medical History Acute myocardial infarction (07/09/13) MPI 11/2014 no ischemia EF 52%; h/o inferolateral infarction 1988 due to spasm, neg coronaries, attributed to smoking Allergic rhinitis (07/29/13) Anemia Anxiety about health B12 deficiency (05/20/12) Benign hypertension CAD (coronary artery disease) Chronic diarrhea (07/29/13) Chronic low back pain without sciatica Chronic rhinitis (11/04/13) Chronic right-sided low back pain with left-sided sciatica (06/16/18) 07/15/18 Seen at [facility], Lumbar Spine MRI Cor athrscl-uns vessel (05/20/12) hx [place] Coronary artery disease Coronary atherosclerosis (05/20/12) hx [place] Cystocele Cystocele, midline (02/26/13) 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 (07/09/13) Deviated nasal septum (11/04/13) Diabetes mellitus (10/30/12) A1c goal 7.5 04/24/18 visit w/ [facility]. Plan:document food and BS 4-5 days. mail them in for review and increase vegetables at night. Diabetes mellitus, type 2 Diabetic polyneuropathy associated with type 2 diabetes mellitus (11/10/17) Diastolic dysfunction Disorder of vitamin B12 Edema (07/09/13) Improved, 09/2018 Essential hypertension (07/27/13) WNL, doing well, tolerating meds 12/01/18 Glossitis History of myocardial infarction a. 1988. Hyperlipidemia Hyperlipidemia (02/26/13) CAD; LDL baseline 124 Hyperlipidemia (02/26/13) CAD; LDL baseline 124 Hypertension Lactose intolerance (04/07/14) Lower leg edema Lumbar radiculopathy (07/09/13) 11/19/16 MRI disc herniation L4-5, L5-S1. Nerve block/[facility] 10/2018. Lumbar spondylosis Lumbar stenosis Mass of soft tissue Numbness and tingling in left hand will always be there, left ulnar access for grafts for leg Obese Osteoarthritis Other B-complex deficiencies (05/20/12) PAD (peripheral artery disease) (05/08/17) bilateral iliac stents placed [facility] Dr. Packer f/u ov 05/14/18. rtc 6mo. w. MARTÍN's and bilateral iliac duplex. Robert Marin MD. [facility] vascular. Pain in right knee Peripheral vascular disease Pneumonitis Postoperative wound infection Pulmonary edema Restless leg syndrome Restless legs syndrome (02/26/13) Sepsis due to Escherichia coli [e. coli] Skin fissure Sleep apnea, obstructive Urinary urgency Vitamin D deficiency Xerostomia (12/09/13) Surgical History Bialteral illiac stents (05/07/17) Dr Packer Coronary Artery Bypass Gaft (CABG) (05/15/17) CAD s/p CABG x2 (05/15/17) [facility] (adm date 05/12/17.Discharge date 05/29/2017) History of Surgical Procedure a. Right trigger thumb release. b. Cardiac catheterization at [facility] in 1988, no obstruction found. c. Tonsillectomy. d. Bilateral endoscopic carpal tunnel release. e. Ganglion cyst removal from right wrist. f. Colonoscopy. g. Right knee arthroscopy. Open Carpal Tunnel release bilateral Replacement of total knee joint (07/18/14) Right total knee replacement Dr. Garcia at [facility] S/P CABG (coronary artery bypass graft) (05/15/17) x2 (05/15/17) Status post vascular bypass Tonsillectomy and adenoidectomy Trigger Finger release (06/08/13) Dr. Garcia Family History Other Benign hypertension Social History Smoking/Tobacco Use Status: Former Tobacco Use Smoking risk assessment performed?: Yes Alcohol Intake: never Drug use: Never Substance use type: does not use Housing: house Number of Children: 2 number of grandchildren: 2 Communication Needs: None current occupation: retired from [employer] and [employer] Current gender identity: female What type of physical activity do you participate in: none Seatbelt use: always Drive intox or ride w/intox xm1 tank driver: No Working smoke detector in home: Yes Do you feel safe at home: Yes Do you feel safe in your relationship?: Yes Exam Const General: no acute distress Orientation: alert [facility] Head: normal to inspection Ears: external ears normal General nose exam: external nose normal Mouth: moist mucous membranes Eyes General: appearance normal, both eyes and all related structures Neck Neck: normal visual inspection Resp Effort & Inspection: normal respiratory effort and able to speak in complete sen tences Cardio Rate: regular rate GI Palpation: soft, not rigid and nontender Skin General skin exam: no rashes or lesions noted Neuro General: patient alert and patient oriented x3 Extrem General: normal to inspection Psych Mental Status: mental status grossly normal Course Vital Signs Vital signs: Vital Signs Temperature 36.5 C 12/26/20 10:18 Pulse 69 12/26/20 10:18 Respiratory Rate 12 12/26/20 10:18 Blood Pressure 106/49 L 02/02/21 10:18 Pulse Oximetry 100 12/26/20 10:18 Temperature 36.5 C 12/26/20 10:18 Temperature Source Skin 12/26/20 10:18 Pulse 69 12/26/20 10:18 Respiratory Rate 12 12/26/20 10:18 Blood Pressure 106/49 L 12/26/20 10:18 Blood Pressure Position Supine 12/26/20 10:18 Pulse Oximetry 100 12/26/20 10:18 Oxygen Delivery Method Room Air 12/26/20 10:18 Oxygen Flow Rate 0 12/26/20 10:18 Pain Level 0 12/26/20 10:18
[2020-12-26] MEDS: Normal Saline 1,000 ML 1000 ML IV (11:02)
[2020-12-26 11:04] LABS: Abs Immature Grans 0.03 10^3/uL (0.0-0.06); Absolute Basophil Count 0.07 10^3/uL (0.0-0.2); Absolute Eosinophil Count 0.28 10^3/uL (0.0-0.7); Absolute Lymphocyte Count 2.51 10^3/uL (1.2-3.4); Absolute Monocyte Count 0.71 10^3/uL (0.1-0.8); Absolute Neutrophil Count 6.91 10^3/uL (1.2-6.7); Basophils % 0.7; Eosinophils % 2.7; HCT 34.1 % (36.0-46.0); Immature Grans % 0.3; Lymphocytes % 23.9; MCH 30.1 pg (27.0-33.0); MCHC 32.3 % (32.0-36.0); MCV 93.4 fL (80-95); Monocytes % 6.8; Neutrophils % 65.6; Nucleated RBC 0 %; Platelet Count 223 10^3/uL (130-400); RBC 3.65 10^6/uL (3.93-5.22); RDW 15.4 % (11.7-14.6); RDW-SD 52.7 fL; WBC 10.51 10^3/uL (4.4-10.8)
[2020-12-26 11:24] LABS: ALT 20 U/L (14-59); AST 14 U/L (15-37); Albumin 3.2 g/dL (3.4-5.0); Alkaline Phosphatase 91 U/L (46-116); Anion Gap 8.6 mmol/L (3-11); BUN 21 mg/dL (7-18); Bilirubin, Total 0.5 mg/dL (0.2-1.0); CO2 27.4 mmol/L (21.0-32.0); CREATININE 1.2 mg/dL (0.55-1.02); Calcium 9.6 mg/dL (8.5-10.1); Chloride 104 mmol/L (98-107); Estimated GFR 44.68 (mL/min/1.73m2); Glucose 119 mg/dL (74-106); Magnesium 1.7 mg/dL (1.8-2.4); Potassium 4.4 mmol/L (3.5-5.1); Sodium 140 mmol/L (136-145); TSH (W/Ref FT4) 1.36 uIU/mL (0.36-3.74); Total Protein 6.8 g/dL (6.4-8.2)
--- NOTE | 2020-12-26 11:37 | NUR.NOTE ---
Nursing Note: Referral faxed to PCP for follow up within one week. Rosa Macdonald
== END 2020-12-26 12:02 | disposition home or self-care (01) ==
PROVIDERS: Emergency Provider Emergency Medicine; PCP Student in an Organized Health Care Education/Training Program
DX: E86.0 Dehydration (principal); I95.9 Hypotension, unspecified; H81.13 Benign paroxysmal vertigo, bilateral
CPT/HCPCS: 36415; 80053; 96360; 99284; 83735; 84443; 85025

== ENCOUNTER 2021-01-22 15:08 | Outpatient (REF) | payer MEDICARE, OTHER, SELFPAY ==
[2021-01-24 12:25] LABS: COVID-19 RT-PCR UVMMC Result Negative (Negative)
== END 2021-01-22 15:09 | disposition home or self-care (01) ==
LOC: LBN 15:08
PROVIDERS: PCP Student in an Organized Health Care Education/Training Program; Visit Provider Family Medicine
DX: Z20.822 Contact with and (suspected) exposure to COVID-19 (principal); R05 Cough; J02.9 Acute pharyngitis, unspecified
CPT/HCPCS: U0003; U0005

== ENCOUNTER 2021-03-16 03:29 | Outpatient (CLI) | payer MEDICARE, OTHER, SELFPAY ==
--- NOTE | 2021-03-16 06:30 | DI.CT_ITS ---
EXAM: CT CHEST W CLINICAL HISTORY: evaluate nodules; r/o constricting pathology,NODULE ANT CHEST WAL,R22.2 TECHNIQUE: Imaging Protocol: Axial computed tomography images with coronal and sagittal reformatted images were created and reviewed CONTRAST MATERIAL: Intravenous: Omnipaque 350 Contrast volume:structured data in ml. COMPARISON: CT CT CHEST WO from 05/19/2019 CR,XR XR CHEST 2V PA LATERAL from 12/04/2020 CR,XR XR CHEST 2V PA LATERAL from 12/04/2020 FINDINGS: Tracheobronchial tree: Patent where visualized. Mediastinum and Simin: No dominant adenopathy or fluid collection. Pulmonary parenchyma: Evaluation mildly limited by respiratory motion. 7 x 8 by 6 millimeter nodule posterior right upper lobe. Dependent changes at the lung bases. No consolidation or dominant measu rable mass. Mild interlobular septal thickening. Some fluid seen along the fissures. The findings c ould indicate mild CHF. Pleura: Small left pleural effusion. Heart: Left ventricular and left atrial enlargement.. Mitral annular calcification. Severe coronary artery calcifications are seen. Status post CABG. Aorta: Thoracic aorta non-dilated. Moderate to severe atherosclerotic changes Upper abdomen: Hepatic steatosis. Lymph nodes: Within normal limits. Bones: Flowing osteophytes in the thoracic spine. No compression fractures. IMPRESSION: 1. Stable right lower lobe nodule, 7 millimeters average diameter 2. Small left pleural effusion. Mild fluid in the fissures and interlobular septal thickening could indicate mild CHF. RADIATION DOSE DELIVERED: 786.72mGy.cm Total DLP DATA REPOSITORY: All CT scans at this facility are submitted to the National Radiology Data Registry (NRDR) Dose Index Registry (DIR) with the [employer] (ACR). RADIATION OPTIMIZATION: All CT scans at this facility use at least one of these dose optimization te chniques: automated exposure control; mA and/or kV adjustment per patient size (includes targeted exa ms where dose is matched to clinical indication); or iterative reconstruction.
--- NOTE | 2021-03-16 06:30 | DI.US_ITS ---
APPROVED REPORT EXAM: Comprehensive 2D, Doppler, and color-flow Echocardiogram Patient Location: Out-Patient Photostatic Copy Maker: Lisandra Coles RDCS (AE) Indications: Worsened SOB, EDEMA, NSTEMI Other Information Study Quality: Fair. Technically limited study due to body habitus, inability to position patient. Conclusion Technically difficult study Left ventricular wall thickness and chamber size appears normal. Estimated ejection fraction is 35 t o 40%. Assessment of regional wall motion is difficult but inferior wall and apex appear to be hypo to akinetic. Posterior lateral wall is hypokinetic Right atrium and right ventricle not well visualized The aortic valve is probably trileaflet, mildly sclerotic, no stenosis or regurgitation Mitral annular calcification. Trace to mild mitral regurgitation Mildly dilated left atrium Pulmonic and tricuspid valves not well visualized. Trace tricuspid regurgitation. Right ventricular systolic pressure could not be estimated Wall motion Left Ventricle The left ventricle is normal size. Left ventricular systolic function is mild to moderately decreased . There is normal left ventricular wall thickness. Regional wall motion abnormalities are noted There is no ventricular septal defect visualized. LVEF is 35-40%. Right Ventricle Right ventricle is not well visualized. Right ventricular systolic function could not be assessed. Atria Left atrium is mildly dilated. Right atrium is not well visualized. The interatrial septum is intact with no evidence for an atrial septal defect. Aortic Valve The aortic valve is not well visualized. Aortic valve is probably trileaflet. There is no aortic valv ular stenosis. No aortic regurgitation is present. Mitral Valve Moderate mitral annular calcification. No evidence of mitral valve stenosis. Trace to mild mitral reg urgitation. Tricuspid Valve Tricuspid valve is not well visualized. There is no tricuspid valve stenosis. Trace tricuspid regurgi tation. Unable to assess PA pressure. Pulmonic Valve Pulmonic valve is not well visualized. There is no pulmonic valvular stenosis. There is no pulmonic v alvular regurgitation. Great Vessels The aortic root is normal in size. The ascending aorta is mildly dilated. The IVC collapses <50% with inspiration. Pericardium There is no pericardial effusion. 2D Dimensions IVSD d PLAX 0.88 cm F: 0.6-1.0 LV Vol A2C d MOD 95.7 mL LVPW d PLAX 0.90 cm F: 0.6 - 1.0 LV Vol A4C d MOD 79.5 mL LVID d PLAX 4.15 cm F: 3.8 - 5.2 LA vol/ BSA A4C s A-L 26.4 mL/m2 LVDs 3.45 cm F: 2.2 - 3.5 LA Area A4C s MOD 20.75 cm2 Ao Root d 2.64 cm F: 2.7 - 3.3 LV EF A4C MOD 36.4 % Ao Asc Diam d 3.35 cm F: 2.3 - 3.1 LV EF A2C MOD 30.5 % LV EF Teichholz 34.6 % LV EF Biplane MOD 33.2 % LVEF ([facility]'s) 33.20 % F: 54 - 74 SV 29.74 mL LV Volume 64.56 mL F: 46 - 106 SV Index 13.13 mL/m2 LV Volume Index 28.56 mL/m2 F: 29 - 61 LV Vol Biplane MOD 89.6 mL FS 16.25 % M-Mode TAPSE 1.84 cm (M/F) >1.7 LV Diastology MV E' medial 0.040 (>0.07 m/s) E/A Ratio 2.1 LV E/e MED 45.60 (<14) MV E Vmax 1.82 (0.4-1.3 m/s) MV E' lateral 0.044 (>0.1 m/s) MV A Vmax 0.85 (0.4-1.3 m/s) LV E/e LAT 41.35 (<14) MV E/A Ratio 2.08 MV E/E' medial 45.61 MV E/E' lateral 41.39 Aortic Valve LVOT Area 2.77 cm2 AoV Area Vmax 2.07 cm2 LVOT Vmax 1.17 m/s AoV Area/ BSA (Vmax) 0.91 cm2/m2 LVOT Mean Josef. 0.66 m/s TEAGAN Mean Josef. 1.55 cm2 LVOT Peak Grad 5.5 mmHg TEAGAN Mean Josef. Index 0.68 cm2/m2 LVOT Mean Grad 2.2 mmHg LVOT VTI 0.236 m LVOT Diam s 1.85 cm AoV Vmax 1.57 m/s Velocity Ratio 0.74 AoV Mean Josef. 1.19 m/s AoV Peak Grad 9.9 mmHg LVOT SV 65.59 mL AoV Mean Grad 6.0 mmHg AoV VTI 0.334 m AoV Area VTI 1.96 cm2 AoV Area/ BSA (VTI) 0.87 cm/m2 Mitral Valve MV DT 261 (160-240 msec) MV PHT 76 msec MV Area PHT 2.91 cm2 MV VTI 0.400 m MV VTI Annulus 0.410 m MV Area VTI 1.68 (4.0-6.0 cm2) Pulmonary Valve PV Vmax 1.21 (0.5-1.5 m/s) RVOT Peak Gr. 3.15 mmHg PV Peak Grad 5.9 mmHg RVOT Mean Gr. 2.40 mmHg PV Mean Grad 3.4 mmHg RVOT VTI 0.202 m PV VTI 0.229 m RVOT Vmax 0.89 m/s
[2021-03-16 10:18] LABS: Abs Immature Grans 0.05 10^3/uL (0.0-0.06); Absolute Basophil Count 0.07 10^3/uL (0.0-0.2); Absolute Lymphocyte Count 2.25 10^3/uL (1.2-3.4); Absolute Neutrophil Count 9.56 10^3/uL (1.2-6.7); Anion Gap 10.1 mmol/L (3-11); BUN 16 mg/dL (7-18); Basophils % 0.5; CO2 24.9 mmol/L (21.0-32.0); Calcium 8.7 mg/dL (8.5-10.1); Chloride 105 mmol/L (98-107); Eosinophils % 3.3; Estimated GFR 55.14 (mL/min/1.73m2); Glucose 153 mg/dL (74-106); HCT 35.7 % (36.0-46.0); HGB 11.6 g/dL (11.2-15.7); Immature Grans % 0.4; Lymphocytes % 17.1; MCH 30.1 pg (27.0-33.0); MCHC 32.5 % (32.0-36.0); MCV 92.5 fL (80-95); MPV 11.8 fL (8.0-11.0); Magnesium 1.7 mg/dL (1.8-2.4); Monocytes % 6.1; Neutrophils % 72.6; Nucleated RBC 0 %; Potassium 4.2 mmol/L (3.5-5.1); RBC 3.86 10^6/uL (3.93-5.22); RDW 14.6 % (11.7-14.6); Sodium 140 mmol/L (136-145); WBC 13.17 10^3/uL (4.4-10.8)
[2021-03-16 10:21] LABS: Absolute Eosinophil Count 0.43 10^3/uL (0.0-0.7)
[2021-03-16 10:31] LABS: Diff Comment Diff Reviewed; Polychromasia Present
[2021-03-16] MEDS: Normal Saline - Diluent 50 ML VIAL IV (11:04)
== END 2021-03-16 03:49 ==
PROVIDERS: PCP Student in an Organized Health Care Education/Training Program; Visit Provider Student in an Organized Health Care Education/Training Program
DX: R06.02 Shortness of breath (principal); R60.0 Localized edema; I25.2 Old myocardial infarction; R91.1 Solitary pulmonary nodule; J90 Pleural effusion, not elsewhere classified; R93.9 Diagnostic imaging inconclusive due to excess body fat of patient; I34.0 Nonrheumatic mitral (valve) insufficiency
CPT/HCPCS: 80048; 93306; 71260; 83735; 85025

== ENCOUNTER 2021-03-21 10:36 | Outpatient (CLI) | payer MEDICARE, OTHER, SELFPAY ==
--- NOTE | 2021-03-21 10:55 | DI.RAD_ITS ---
EXAM: XR KNEE LT 3V AP,LAT,MANJU CLINICAL HISTORY: f/u. TECHNIQUE: 2D digital imaging was performed. COMPARISON: CR RIGHT KNEE LIMITED 1 OR 2 VIEW from 07/18/2015 FINDINGS: There is no evidence of fracture or prominent joint effusion. However, there are significant osteoar thritic degenerative changes which are most evident in the medial and patellofemoral compartments. T here is [id number] narrowing of the medial compartment with an element of Varus deformity. The les s narrowing of the lateral compartment is seen but there are marginal osteophytes off the lateral com partment. Moderate degenerative changes in the patellofemoral compartment. There is also small join t effusion. Vascular calcification popliteal artery is noted. IMPRESSION: Significant degenerative changes. DATA REPOSITORY: RADIATION DOSE DELIVERED:
== END 2021-03-21 10:37 | disposition home or self-care (01) ==
LOC: DIORS 10:36
PROVIDERS: PCP Student in an Organized Health Care Education/Training Program; Referring Provider Student in an Organized Health Care Education/Training Program; Visit Provider Student in an Organized Health Care Education/Training Program
DX: M17.12 Unilateral primary osteoarthritis, left knee (principal); M25.562 Pain in left knee; M25.462 Effusion, left knee
CPT/HCPCS: 20610; 73562; 99213; J1040

== ENCOUNTER → 2021-04-02 12:26 | Outpatient (BNVA) | payer MEDICARE, OTHER, SELFPAY | PROVIDERS: PCP Student in an Organized Health Care Education/Training Program; Referring Provider Student in an Organized Health Care Education/Training Program; Visit Provider Psychiatry & Neurology Neurology | DX: J81.1 Chronic pulmonary edema (principal); E11.42 Type 2 diabetes mellitus with diabetic polyneuropathy; I73.9 Peripheral vascular disease, unspecified; M54.16 Radiculopathy, lumbar region | CPT/HCPCS: 99215 ==

== ENCOUNTER 2021-04-20 02:26 | Outpatient (CLI) | payer MEDICARE, OTHER, SELFPAY ==
[2021-04-20 13:41] LABS: BUN 17 mg/dL (7-18); CREATININE 1.1 mg/dL (0.55-1.02); Calcium 9.1 mg/dL (8.5-10.1); Chloride 104 mmol/L (98-107); Estimated GFR 49.39 (mL/min/1.73m2); Glucose 147 mg/dL (74-106); Potassium 3.8 mmol/L (3.5-5.1); Sodium 142 mmol/L (136-145)
== END 2021-04-20 02:27 | disposition home or self-care (01) ==
LOC: LBO 02:26
PROVIDERS: PCP Student in an Organized Health Care Education/Training Program; Visit Provider Family Medicine
DX: I50.9 Heart failure, unspecified (principal)
CPT/HCPCS: 36415; 80048

== ENCOUNTER → 2021-06-28 10:32 | Outpatient (BNVA) | payer MEDICARE, OTHER, SELFPAY | PROVIDERS: PCP Student in an Organized Health Care Education/Training Program; Referring Provider Student in an Organized Health Care Education/Training Program; Visit Provider Student in an Organized Health Care Education/Training Program | DX: M25.562 Pain in left knee (principal); M17.12 Unilateral primary osteoarthritis, left knee; M25.561 Pain in right knee; Z98.890 Other specified postprocedural states; I50.20 Unspecified systolic (congestive) heart failure; I25.2 Old myocardial infarction | CPT/HCPCS: 20610; 99214; J1040 ==

== ENCOUNTER 2021-08-31 02:26 | Outpatient (CLI) | payer MEDICARE, OTHER, SELFPAY ==
[2021-08-31 09:04] LABS: HCT 35.6 % (36.0-46.0); HGB 11.7 g/dL (11.2-15.7); MCH 30.4 pg (27.0-33.0); MCHC 32.9 % (32.0-36.0); MCV 92.5 fL (80-95); MPV 11.1 fL (8.0-11.0); Platelet Count 227 10^3/uL (130-400); RBC 3.85 10^6/uL (3.93-5.22); RDW 16.2 % (11.7-14.6); RDW-SD 55.2 fL; WBC 9.93 10^3/uL (4.4-10.8)
[2021-08-31 09:48] LABS: Anion Gap 9.7 mmol/L (3-11); BUN 16 mg/dL (7-18); CO2 25.3 mmol/L (21.0-32.0); CREATININE 1.1 mg/dL (0.55-1.02); Calculated LDL 59 mg/dL (<100); Chloride 104 mmol/L (98-107); Cholesterol 146 mg/dL (<200); Estimated GFR 49.39 (mL/min/1.73m2); Glucose 168 mg/dL (74-106); HDL Cholesterol 33 mg/dL (40-60); Potassium 3.9 mmol/L (3.5-5.1); Sodium 139 mmol/L (136-145); Triglyceride 271 mg/dL (<150)
== END 2021-08-31 02:27 | disposition home or self-care (01) ==
LOC: LBO 02:26
PROVIDERS: PCP Student in an Organized Health Care Education/Training Program; Visit Provider Student in an Organized Health Care Education/Training Program
DX: Z13.220 Encounter for screening for lipoid disorders; I25.2 Old myocardial infarction; M25.561 Pain in right knee; I10 Essential (primary) hypertension; E86.0 Dehydration; T50.2X5A Adverse effect of carbonic-anhydrase inhibitors, benzothiadiazides and other diuretics, initial encounter
CPT/HCPCS: 36415; 80048; 80061; 85027

== ENCOUNTER → 2021-10-01 11:31 | Outpatient (BNVA) | payer MEDICARE, OTHER, SELFPAY | PROVIDERS: PCP Student in an Organized Health Care Education/Training Program; Referring Provider Student in an Organized Health Care Education/Training Program; Visit Provider Psychiatry & Neurology Neurology | DX: E11.42 Type 2 diabetes mellitus with diabetic polyneuropathy (principal); I73.9 Peripheral vascular disease, unspecified; M54.16 Radiculopathy, lumbar region; Z79.891 Long term (current) use of opiate analgesic; Z79.899 Other long term (current) drug therapy | CPT/HCPCS: 99443 ==

== ENCOUNTER → 2021-10-11 10:26 | Outpatient (BNVA) | payer MEDICARE, OTHER, SELFPAY | PROVIDERS: PCP Student in an Organized Health Care Education/Training Program; Visit Provider Student in an Organized Health Care Education/Training Program | DX: M25.562 Pain in left knee (principal); M17.12 Unilateral primary osteoarthritis, left knee | CPT/HCPCS: 20610; J1040 ==

== ENCOUNTER 2021-11-01 02:50 | Outpatient (CLI) | payer MEDICARE, OTHER, SELFPAY ==
[2021-11-01] MEDS: Albuterol HFA 18 GM 200 PUFF INH IH (08:54)
[2021-11-01] MEDS: Inhaler, Assist Device 1 EACH MC (08:55)
--- NOTE | 2021-11-02 11:01 | W.PFT ---
Date of service: 11/02/21 Time of Service: 09:08 Pulmonary Function Test Result Requesting Provider Laura Indications: Dyspnea on exertion Interpretation Spirometry: There is no airflow limitation. There is no significant bronchodilator response. Lung Volumes: Lung volumes are normal. Diffusion Capacity: The diffusion is reduced. Airway Pressure: Airways resistance is normal. Impression Isolated reduced diffusion capacity. In the correct clinical context this could represent pulmonary vascular disease. Clinical Correlation therefore is recommended.
== END 2021-11-01 02:51 | disposition home or self-care (01) ==
LOC: RT 02:50
PROVIDERS: PCP Student in an Organized Health Care Education/Training Program; Visit Provider Student in an Organized Health Care Education/Training Program
DX: R06.09 Other forms of dyspnea (principal); J30.2 Other seasonal allergic rhinitis; J30.89 Other allergic rhinitis; Z87.891 Personal history of nicotine dependence; R94.2 Abnormal results of pulmonary function studies
CPT/HCPCS: 94060; 94726; 94729

== ENCOUNTER → 2022-01-09 12:41 | Outpatient (BNVA) | payer MEDICARE, OTHER, SELFPAY | PROVIDERS: PCP Student in an Organized Health Care Education/Training Program; Referring Provider Student in an Organized Health Care Education/Training Program; Visit Provider Psychiatry & Neurology Neurology | DX: E11.42 Type 2 diabetes mellitus with diabetic polyneuropathy (principal); M70.71 Other bursitis of hip, right hip; M54.16 Radiculopathy, lumbar region; G89.29 Other chronic pain; R29.3 Abnormal posture | CPT/HCPCS: 99214 ==

== ENCOUNTER → 2022-01-10 10:54 | Outpatient (BNVA) | payer MEDICARE, OTHER, SELFPAY | PROVIDERS: PCP Student in an Organized Health Care Education/Training Program; Visit Provider Student in an Organized Health Care Education/Training Program | DX: M17.12 Unilateral primary osteoarthritis, left knee (principal) | CPT/HCPCS: 20610; J1040 ==

== ENCOUNTER 2022-01-21 00:43 | Outpatient (CLI) | payer MEDICARE, OTHER, SELFPAY ==
--- NOTE | 2022-01-21 07:24 | DI.MRI_ITS ---
Exam(s) MR THORACIC SPINE WO EXAM: MR THORACIC SPINE WO CLINICAL HISTORY: progressive kyphosis; FAMILY H/O muscular dystrophy,M40.209. TECHNIQUE: Multiplanar multisequence MRI of the Thoracic spine was performed. CONTRAST MATERIAL: Noncontrast COMPARISON: CR,XR XR CHEST 2V PA LATERAL from 12/04/[address] CHEST W from 03/16/2021 FINDINGS: Bones: The vertebral body heights are well maintained. There is a mild levoscoliosis. There prominen t flowing endplate osteophytes. There is no evidence of compression fracture. No disc herniation is seen. Hemangioma mid thoracic region. Cord: The thoracic cord is normal size and signal intensity. No intrinsic cord lesion is present. Soft tissues: Severe muscular atrophy particularly of the posterior paraspinal muscles. IMPRESSION: Accentuation of the normal thoracic kyphosis without evidence of compression fracture. Mild scoliosi s. Degenerative changes. Severe atrophy of the posterior paraspinal muscles. DATA REPOSITORY:
== END 2022-01-21 01:03 ==
PROVIDERS: PCP Student in an Organized Health Care Education/Training Program; Visit Provider Psychiatry & Neurology Neurology
DX: M40.204 Unspecified kyphosis, thoracic region (principal); Z82.69 Family history of other diseases of the musculoskeletal system and connective tissue; M62.58 Muscle wasting and atrophy, not elsewhere classified, other site
CPT/HCPCS: 72146

== ENCOUNTER → 2022-02-07 07:47 | Outpatient (BNVA) | payer MEDICARE, OTHER, SELFPAY | PROVIDERS: PCP Student in an Organized Health Care Education/Training Program; Referring Provider Student in an Organized Health Care Education/Training Program; Visit Provider Psychiatry & Neurology Neurology | DX: E11.42 Type 2 diabetes mellitus with diabetic polyneuropathy (principal); M54.16 Radiculopathy, lumbar region; I73.9 Peripheral vascular disease, unspecified; M40.204 Unspecified kyphosis, thoracic region; G72.89 Other specified myopathies; F44.4 Conversion disorder with motor symptom or deficit | CPT/HCPCS: 99443 ==

== ENCOUNTER 2022-02-15 03:38 | Outpatient (CLI) | payer MEDICARE, OTHER, SELFPAY ==
[2022-02-15 09:10] LABS: HCT 38.3 % (36.0-46.0); HGB 12.1 g/dL (11.2-15.7); MCHC 31.6 % (32.0-36.0); MCV 94.8 fL (80-95); MPV 10.3 fL (8.0-11.0); Platelet Count 227 10^3/uL (130-400); RBC 4.04 10^6/uL (3.93-5.22); RDW 14.4 % (11.7-14.6); RDW-SD 49.8 fL; WBC 9.26 10^3/uL (4.4-10.8)
[2022-02-15 10:12] LABS: ALT 23 U/L (14-59); AST 13 U/L (15-37); Albumin 3.4 g/dL (3.4-5.0); Alkaline Phosphatase 108 U/L (46-116); Anion Gap 10.2 mmol/L (3-11); BUN 15 mg/dL (7-18); Bilirubin, Total 0.5 mg/dL (0.2-1.0); CO2 27.8 mmol/L (21.0-32.0); Calcium 8.8 mg/dL (8.5-10.1); Calculated LDL 62 mg/dL (<100); Chloride 102 mmol/L (98-107); Cholesterol 160 mg/dL (<200); Estimated GFR 54.97 (mL/min/1.73m2); Glucose 128 mg/dL (74-106); HDL Cholesterol 43 mg/dL (40-60); Potassium 4.2 mmol/L (3.5-5.1); Sodium 140 mmol/L (136-145); Total Protein 6.6 g/dL (6.4-8.2); Triglyceride 277 mg/dL (<150)
== END 2022-02-15 03:39 | disposition home or self-care (01) ==
LOC: LBO 03:43
PROVIDERS: PCP Student in an Organized Health Care Education/Training Program; Referring Provider Student in an Organized Health Care Education/Training Program; Visit Provider Student in an Organized Health Care Education/Training Program
DX: E11.9 Type 2 diabetes mellitus without complications (principal); N19 Unspecified kidney failure
CPT/HCPCS: 36415; 80053; 80061; 85027

== ENCOUNTER → 2022-04-11 10:28 | Outpatient (BNVA) | payer MEDICARE, OTHER, SELFPAY | PROVIDERS: PCP Student in an Organized Health Care Education/Training Program; Referring Provider Student in an Organized Health Care Education/Training Program; Visit Provider Student in an Organized Health Care Education/Training Program | DX: M17.12 Unilateral primary osteoarthritis, left knee (principal); M67.911 Unspecified disorder of synovium and tendon, right shoulder | CPT/HCPCS: 20610; J1040 ==

== ENCOUNTER 2022-04-25 10:59 | Outpatient (CLI) | payer MEDICARE, OTHER, SELFPAY ==
--- NOTE | 2022-04-25 10:30 | DI.RAD_ITS ---
Exam(s) XR SHOULDER RT COMPLETE 2+V EXAM: XR SHOULDER RT COMPLETE 2+V CLINICAL HISTORY: RIGHT SHOULDER PAIN. TECHNIQUE: 2D digital imaging was performed. COMPARISON: No exams were available for comparison FINDINGS: 3 views No evidence of acute fracture or dislocation. Soft tissue calcifications are noted in the lateral kent bacromial space above the greater tuberosity. Subacromial space is not significantly diminished. Mi ld degenerative changes in the AC joint. Moderate degenerative changes in the glenohumeral joint. B one density normal. No lytic osseous lesions. IMPRESSION: Degenerative changes. Also calcific rotator cuff tendinitis. DATA REPOSITORY: RADIATION DOSE DELIVERED:
== END 2022-04-25 11:00 | disposition home or self-care (01) ==
LOC: DIORS 11:01
PROVIDERS: PCP Student in an Organized Health Care Education/Training Program; Referring Provider Student in an Organized Health Care Education/Training Program; Visit Provider Student in an Organized Health Care Education/Training Program
DX: M67.911 Unspecified disorder of synovium and tendon, right shoulder (principal); M17.12 Unilateral primary osteoarthritis, left knee; M19.011 Primary osteoarthritis, right shoulder
CPT/HCPCS: 20610; 73030; J1040

== ENCOUNTER → 2022-06-24 11:18 | Outpatient (BNVA) | payer MEDICARE, OTHER, SELFPAY | PROVIDERS: PCP Student in an Organized Health Care Education/Training Program; Referring Provider Physical Therapist; Visit Provider Student in an Organized Health Care Education/Training Program | DX: I25.2 Old myocardial infarction (principal); Z98.890 Other specified postprocedural states; M19.011 Primary osteoarthritis, right shoulder | CPT/HCPCS: 99213 ==

== ENCOUNTER → 2022-06-25 02:02 | Outpatient (CLI) | payer MEDICARE, OTHER, SELFPAY ==
--- NOTE | 2022-06-25 11:23 | DI.MAMMO_ITS ---
Exam(s) MG MAMMO SCREENING 60 MIN DUR EXAM: MG MAMMO SCREENING 60 MIN DUR CLINICAL HISTORY: breast cancer screening,z12.39 TECHNIQUE: Bilateral full field digital CC and MLO mammographic images were obtained with 3D tomosyn thesis and utilizing computer aided detection (CAD). COMPARISON: Available for comparison. FINDINGS: Masses/Architectural Distortion: None seen. Biopsy clips are seen in the upper outer quadrant of the left breast. Microcalcifications: No suspicious pleomorphic-type are seen. Stable benign type calcifications are s een in both breasts. Skin Thickening/Nipple Retraction: None. IMPRESSION: 1. No significant interval change with no specific features of malignancy noted. 2. Unless there is more urgent need, screening mammography is recommended, as per [employer] [employer] guidelines. BI-RADS Category 2 - Benign Findings Breast Density - Category C - Heterogeneously dense Breast density category C or D implies that the patient has dense breast tissue. Dense breast tissue is very common and is not abnormal but dense breast tissue can make it harder to find cancer on a ma mmogram. Also, dense breast tissue may increase their breast cancer risk. This information about the result of the mammogram report was provided to the patient to raise their awareness. Use this report when you speak with the patient about their risks for breast cancer, which includes their family hist ory. At that time, you may recommend for more screening tests (Ultrasound or MRI) as they might be us eful based on their risk. A negative radiographic report should not delay biopsy if a dominant or clinically suspicious mass is present. Up to ten percent of cancers are not identified on mammography. A negative report may reinforce clinical impression. Adenosis and dense breasts may obscure an underlying neoplasm. False positive reports average 6 to 10%. Patient will receive a letter notifying them of these results.
== END ==
PROVIDERS: PCP Student in an Organized Health Care Education/Training Program; Visit Provider Student in an Organized Health Care Education/Training Program
DX: Z12.31 Encounter for screening mammogram for malignant neoplasm of breast (principal); R92.1 Mammographic calcification found on diagnostic imaging of breast
CPT/HCPCS: 77063; 77067

== ENCOUNTER → 2022-07-11 01:59 | Outpatient (CLI) | payer MEDICARE, OTHER, SELFPAY ==
--- NOTE | 2022-07-11 07:30 | DI.RAD_ITS ---
Exam(s) RF JOINT INJECTION FLUORO GUID EXAM: RF JOINT INJECTION FLUORO GUID CLINICAL HISTORY: R SHOULDER INJ UNDER FLUORO,ARTHRITITIS RT SHOULDER JOINT, M19.011. TECHNIQUE: 2D and realtime digital imaging was performed. COMPARISON: CR XR SHOULDER RT COMPLETE 2+V from 04/25/2022 FINDINGS: Fluoroscopy was provided for Dr. Powell for guidance with performing a right shoulder injection. Please see procedure note for details. Fluoro time: 1seconds RADIATION DOSE DELIVERED: Kar= 9.4 mGy
[2022-07-11] MEDS: Bupivacaine 0.5% Pres-Free 30 ML VIAL 5 ML IJ (14:59)
[2022-07-11] MEDS: methylPREDNISolone ACETATE 80 MG/ML VIAL IM (14:59)
[2022-07-11] MEDS: Omnipaque 300 MG/ML 10 ML BTL IJ (15:00)
--- NOTE | 2022-07-14 17:23 | W.PROCNOTE ---
Date of service: 07/11/22 Time of Service: 14:50 Procedure Note Date of procedure: 07/11/22 Procedure: Right Shoulder Injection Surgeon/Proceduralist/Physician: Krystian Powell Procedure Diagnosis: Right Shoulder Arthritis Procedure Indications: Dennise has had persistent pain of the RIGHT shoulder. Noninvasive measures have been tried. To serve as both diagnostic and therapeutic, an injection under fluoroscopy was recommended. I had discussed the risks of the procedure and the patient elected to proceed. Procedure Description: Dennise was greeted in the flouroscopy room. The correct side was identified and the consent was reviewed with the patient and signed. The patient was then placed in the supine position on the fluoroscopy table. The RIGHT shoulder was then prepped with Chloraprep. The anterior injection starting point was identiifed by bony landmarks and fluoroscopy. The skin and soft tissue in the tract of the injection was anesthetized with 1% Lidocaine. A spinal needle was then inserted deep into the shoulder joint at the level of the recess between the glenoid and superior humeral head. A small amount of Omnipaque solution was injected to confirm intraarticular placement. Positioning was quite difficult due to her habitus and inability to tolerate true supine positioning. Once confirmed, the shoulder was injected with 5cc of 0.5% Bupivicaine and 80mg of Depo-Medrol. A bandaid was placed on the injection site. The patient tolerated the procedure well and noted improvement in pre-injection pain.
== END ==
PROVIDERS: PCP Student in an Organized Health Care Education/Training Program; Visit Provider Student in an Organized Health Care Education/Training Program
DX: M19.011 Primary osteoarthritis, right shoulder (principal)
CPT/HCPCS: 20610; 77002; J1040

== ENCOUNTER 2022-07-11 04:05 | Outpatient (CLI) | payer MEDICARE, OTHER, SELFPAY ==
[2022-07-11 14:58] LABS: Iron 54 ug/dL (50-170); Total Iron Binding Capacity 319 ug/dL (250-450); Transferrin Sat 17 % (15-50)
[2022-07-11 15:06] LABS: ALT 28 U/L (14-59); AST 20 U/L (15-37); Albumin 3.4 g/dL (3.4-5.0); Alkaline Phosphatase 97 U/L (46-116); Anion Gap 9.3 mmol/L (3-11); BUN 18 mg/dL (7-18); Bilirubin, Total 0.5 mg/dL (0.2-1.0); CO2 26.7 mmol/L (21.0-32.0); Chloride 101 mmol/L (98-107); Estimated GFR 54.97 (mL/min/1.73m2); Ferritin 110 ng/mL (8-252); Glucose 132 mg/dL (74-106); Sodium 137 mmol/L (136-145); Total Protein 7.1 g/dL (6.4-8.2)
== END 2022-07-11 04:06 | disposition home or self-care (01) ==
LOC: LBO 04:05
PROVIDERS: PCP Student in an Organized Health Care Education/Training Program; Visit Provider Student in an Organized Health Care Education/Training Program
DX: D64.9 Anemia, unspecified (principal); R06.02 Shortness of breath; N28.9 Disorder of kidney and ureter, unspecified; R94.5 Abnormal results of liver function studies
CPT/HCPCS: 20610; 36415; 77002; 80053; 82728; 83540; 83550; J1040

== ENCOUNTER 2022-08-01 10:14 | Outpatient (CLI) | payer MEDICARE, OTHER, SELFPAY ==
--- NOTE | 2022-08-01 06:00 | DI.RAD_ITS ---
Exam(s) XR PAIN CLINIC FLUORO JOINT IN EXAM: XR PAIN CLINIC FLUORO JOINT IN CLINICAL HISTORY: Knee osteoarthritis TECHNIQUE: 2D and realtime digital imaging was performed. CONTRAST MATERIAL: Refer to procedure report. COMPARISON: No exams were available for comparison FINDINGS: Fluoroscopy was provided for Dr. Moscoso during the performance of a left knee genicular nerve block. Please refer to the procedure report for complete details. Ka,r=5.13 mGy IMPRESSION:
[2022-08-01 10:26] VITALS: BP 116/76; PULSE 62; RESP 20; TEMP 36.6; O2SAT 96
--- NOTE | 2022-08-01 11:01 | PDOC.PAIN_ITS ---
Pain Clinic Procedure Note Procedure Note Procedure Note: Left GENICULAR NERVE BLOCK Date of Service: August 01, 2022 Patient: Dena Mojica Provider: Brandin Moscoso DO, MPH Pre-operative diagnosis: Knee pain Post-operative diagnosis: Same Pre-procedure pain: VAS= 10/10 COMMENTS: I previously evaluated her in the office o 07/03/22. Dena Mojica has been referred to the [facility] for left genicular nerve blocks. Dena was interviewed and the medical record reviewed. There were no medical, pharmacologic, radiographic or other structural contraindications to attempting fluoroscopically guided left genicular nerve blocks. Risks and potential side effects as well as potential benefit of the procedure were reviewed with Dena , and her voiced concerns were addressed. After I believed that the patient was completely informed, the printed consent form was signed. Standard time-out procedure was performed. Dena was placed in the supine position on the fluoroscopy table and automated blood pressure cuff and pulse oximeter applied. The skin entry points for approaching left superolateral genicular nerve, the superomedial genicular nerve, the terminal branch of the nerve vastus intermedius and the inferomedial genicular was identified under the most advantageous fluoroscopic view and marked. Following thorough Chlorhexadine preparation of the skin and draping. Next, the 3.5 25G spinal needle was advanced to os at the location of the specific nerve root using fluoroscopic guidance. Next, 1 ml of 2% Lidocaine was injected at each site. The needles were removed without difficulty. Dena's vital signs were stable throughout the procedure and were as recorded in the docflowsheet by the nursing staff. If given, dosages of intravenous drugs for anxiolysis and analgesia were documented in MAR. Follow up plans and appointments were discussed with the Dena . Post procedure instruction was given as documented in nursing documentation and having met discharge criteria, Dena was discharged from the [facility]. COMMENTS: No apparent complications. Post-procedure pain: VAS = 5/10. The patient will keep track of her left knee pain over the next four hours. If Dena has sufficient pain relief, Dena will be a candidate for radiofrequency ablation at the same nerves. Lester WJ1, Syl SJ, Naman LandersG, Kitty LandersG, Shyam SAUCEDO, Naz PH, Gaetano JW. Radiofrequency treatment relieves chronic knee osteoarthritis pain: a double-blind randomized controlled trial. Pain. 2011 Jan;152(3):481-7. doi: 10.1016/j.pain.2010.09.029. Yeny S1, Pedrito ON2, Nilo Y3, ?zl?damaris P2, Evangelista U1, Ty ?m?rl? I. Which one is more effective for the clinical treatment of chronic pain in knee osteoarthritis: radiofrequency neurotomy of the genicular nerves or intra- articular injection? Int J Rheum Dis. 2016 Jul 05. F/U with our office by phone to let us know her 1-4 hour post-procedure pain scores. Brandin Moscoso DO, MPH [facility]
[2022-08-01 11:15] VITALS: PULSE 63; O2SAT 100
[2022-08-01] MEDS: Omnipaque 240 MG/ML 50 ML BTL IJ (11:16)
[2022-08-01] MEDS: Bupivacaine 0.5% Pres-Free 10 ML VIAL IJ (11:16)
== END 2022-08-01 10:15 | disposition home or self-care (01) ==
LOC: PC 10:15
PROVIDERS: PCP Student in an Organized Health Care Education/Training Program; Visit Provider Preventive Medicine Occupational Medicine
DX: M25.562 Pain in left knee (principal)
CPT/HCPCS: 64454; 77002; Q9967

== ENCOUNTER 2022-08-07 11:14 | Emergency (ER) | payer MEDICARE, OTHER, SELFPAY ==
[2022-08-07 11:13] VITALS: BP 149/106; PULSE 110; RESP 20; TEMP 35.6; O2SAT 93
--- NOTE | 2022-08-07 11:15 | RT.EKG_ITS ---
APPROVED REPORT Exam: Resting ECG Reason for Exam: sob Patient Location: E HR:103 bpm ECG Measurements Heart Rate 103 AXIS [place] [id number] P [id number] QRSd 104 QRS 48 QT 357 T 223 QTc 468 Conclusion Atrial fibrillation...V-rate 67-139, irreg A-activity Low voltage, precordial leads...precordial leads <1.0mV Consider anteroseptal infarct...Q >30mS, dimin R, V1-V2 Physician: no stemi, unchanged
--- NOTE | 2022-08-07 11:19 | DI.CT_ITS ---
Exam(s) CT LUMBAR SPINE RECONS EXAM: CT LUMBAR SPINE RECONS CLINICAL HISTORY: sob, hypoxic, fall, midline L spine pain,sacr pain. TECHNIQUE: Imaging Protocol: Axial computed tomography images with coronal and sagittal reformatted images were created and reviewed COMPARISON: CT CT CHEST/ABD/PEL WO from 08/07/2022 FINDINGS: Bones: There are no fractures, listhesis, nor pars defects. There are no lytic osseous lesions evide nt. Chronic disc space narrowing L5-S1 and mild disc space narrowing L4-5, both spaces exhibiting vacuum phenomenon. Facet arthropathy noted no facet malalignment. PARASPINAL SOFT TISSUES: Visualized paraspinal tissues appear unremarkable. IMPRESSION: 1. Degenerative changes. No acute fractures in the lumbosacral spinal column 2. 3. RADIATION DOSE DELIVERED: 1933.6 mGy.cm Total DLP DATA REPOSITORY: All CT scans at this facility are submitted to the National Radiology Data Registry (NRDR) Dose Index Registry (DIR) with the [employer] (ACR). RADIATION OPTIMIZATION: All CT scans at this facility use at least one of these dose optimization te chniques: automated exposure control; mA and/or kV adjustment per patient size (includes targeted exa ms where dose is matched to clinical indication); or iterative reconstruction.
--- NOTE | 2022-08-07 11:19 | DI.CT_ITS ---
Exam(s) CT CHEST/ABD/PEL WO EXAM: CT CHEST/ABD/PEL WO CLINICAL HISTORY: sob, hypoxic, fall, midline L spine pain,sacr pain. TECHNIQUE: Imaging Protocol: Axial computed tomography images with coronal and sagittal reformatted images were created and reviewed CONTRAST MATERIAL: Intravenous: none Oral: None COMPARISON: CT ABD PELVIS WO CONTRAST from 09/19/2017 FINDINGS: CHEST: LUNGS: There is ground-glass infiltrate in both upper lobes no also involving superior segments of th e lower lobes. Small amount of pleural fluid bilaterally noted. No significant focal findings in th e trachea and mainstem bronchi. No ominous distinct pulmonary nodules evident.. MEDIASTINUM: No mediastinal hematoma. Partially included thyroid gland reveals what appears to be a nodule in the right thyroid lobe, only partially included in the field of view of this chest study. No obvious hilar adenopathy. No mediastinal adenopathy. Sternotomy wires. No acute sternal fractur e identified. CARDIAC: Heart size is normal. There is no pericardial effusion.Coronary artery calcification noted. Caliber thoracic aorta is within normal limits. OSSEOUS: No significant osseous lesions.No fractures.. ABDOMEN: There are abnormal densities in the left anterior wall subcutaneous fat area which are most probably fat necrosis and subsequent to bruising which was evident on a in August 2000 17 study of that time. No truly drainable fluid collection evident at this level. There is no ascites and there is no evidence of mesenteric nor bowel wall hematoma. LIVER: No evidence of a patent laceration nor other incidental hepatic findings on this noninfused [facility]. GALLBLADDER/BILIARY: Mildly distended gallbladder. No obvious calcified gallstones. CBD is not dila sonya. PANCREAS: No evidence of obvious pancreatic mass nor dilatation of the pancreatic duct. SPLEEN: Spleen size normal. No splenic lacerations. No splenic lesions. ADRENALS: There are no significant adrenal masses. KIDNEYS: There is relatively symmetrical streaking around both kidneys but this was evident in 2017. No evidence of obvious acute renal laceration. No subcapsular hematomas. No incidental solid renal masses nor cysts. No calculi. No hydronephrosis. No hydroureter.. Urinary bladder mildly distend ed both out extravasation nor clots therein. ABDOMINAL AORTA: Calcified with mild fusiform dilatation exhibiting maximum diameter of 2.7 cm. Comm on iliac arteries are heavily calcified but not enlarged. There is a stent in the right iliac artery . There is also a stent in the left common iliac artery. LYMPH NODES: There is no retroperitoneal nor para-aortic adenopathy. ABDOMINAL WALL/GI: No evidence of significant anterior abdominal wall nor inguinal hernia. No evidence of bowel obstruction. PELVIS: LYMPH NODES: There is no intrapelvic nor inguinal adenopathy. GI: No evidence of appendicitis.No evidence of sigmoid diverticulitis. URINARY BLADDER: As above. REPRODUCTIVE: Uterus and adnexal regions appear unremarkable. OSSEOUS: No significant osseous lesions. No fractures evident. IMPRESSION: 1. Ground-glass infiltrate in both lungs. Covid testing recommended. Small amount of bilateral pleu ral fluid (but less than was evident in 2017). 2. Sternotomy wires. No sternal fracture or mediastinal hematoma. No pneumothorax. 3. Findings in the abdomen pelvis as above but without evidence of significant acute intra-abdominal- intrapelvic trauma. Findings in the anterior left subcutaneous fat probably fat necrosis findings fr om previously injured site as per 2017 CT scan. RADIATION DOSE DELIVERED: Total DLP DATA REPOSITORY: All CT scans at this facility are submitted to the National Radiology Data Registry (NRDR) Dose Index Registry (DIR) with the [employer] (ACR). RADIATION OPTIMIZATION: All CT scans at this facility use at least one of these dose optimization te chniques: automated exposure control; mA and/or kV adjustment per patient size (includes targeted exa ms where dose is matched to clinical indication); or iterative reconstruction.
--- NOTE | 2022-08-07 11:23 | W.ED.GENAD ---
Discharge Plan Disposition Patient Disposition: HOME Condition: Good Discharge Details Clinical Impression: Fall, Pulmonary infiltrate, Acute UTI Primary Care Provider: Anayeli Chamberlain ED Provider: Vitaly Eng Home Meds and New Rx's Prescriptions: New levofloxacin 750 mg tablet 750 mg PO DAILY 6 Days Qty: 6 0RF No Action docusate sodium 100 mg capsule 100 mg PO DAILY loratadine 10 mg tablet 10 mg PO DAILY Qty: 90 3RF fluocinolone acetonide oil [Flac Otic Oil] 0.01 % drops 5 drp otic (ear) BID 14 Days Qty: 20 1RF Rx Instructions: Trial for ear crackling, discomfort (DME) Blood Glucose Test Strip 1 ea Miscellaneous BID Qty: 100 3RF Rx Instructions: Accucheck test strips, Dx: E11.9 KEEP A1C < 7.5 albuterol sulfate [Proventil HFA] 90 mcg/actuation HFA aerosol inhaler 2 puff Inhalation Q4H PRN (Reason: bronchospasm) Qty: 1 1RF fluticasone propionate [Flonase Allergy Relief] 50 mcg/actuation spray,suspension 1 spray intranasal QHS Qty: 16 12RF Rx Instructions: administer into each nostril Saline Nasal Mist 0.65 % aerosol,spray 2 spray intranasal ONCE Qty: 60 12RF Rx Instructions: Blow nose prior to use. [place] into each nostril every night prior to using Flonase atorvastatin 40 mg tablet 40 mg PO QHS Qty: 90 3RF clopidogrel 75 mg tablet 75 mg PO DAILY Qty: 90 3RF Rx Instructions: 05/07/[address] Birdie MINER oxybutynin chloride 5 mg tablet 5 mg PO TID Qty: 270 3RF nitroglycerin 0.4 mg tablet, sublingual 0.4 mg Sublingual PRN Qty: 7 1RF Rx Instructions: DIRECTED pregabalin [Lyrica] 150 mg capsule See Rx Instructions PO DIRECTED MDD 450 Qty: 270 1RF Rx Instructions: 1 tab AM & 2 tab PM PO as directed; 150mg am and 300mg HS guaifenesin 1,200 mg tablet extended release 12hr 1,200 mg PO BID Qty: 60 1RF Rx Instructions: trial for thick mucus ibuprofen 800 mg tablet 800 mg PO TID MDD 3 pills PRN (Reason: pain) Qty: 90 0RF Rx Instructions: Take with food, and NOT daily tramadol 50 mg tablet 50 mg PO QHS PRN (Reason: leg pain) Qty: 90 1RF Rx Instructions: Take qHS as per Neuro recommendation zinc oxide 15 % cream 1 applic topical BID PRN (Reason: diaper rash) Qty: 99 0RF Rx Instructions: Trial x 2 weeks furosemide 20 mg tablet See Rx Instructions PO DAILY MDD 60mg Qty: 200 1RF Rx Instructions: 40mg daily; 60mg if wt inc by 3 lbs orally daily; cyanocobalamin (vitamin B-12) [Vitamin B-12] 1,000 MCG tablet 1,000 tab PO HS olopatadine [Patanol] 5 ML drops 1 drp Ophthalmic BID PRN Rx Instructions: 0.1% OTH. SAADIA 5ML pyridoxine (vitamin B6) [Vitamin B-6] 200 MG tablet extended release 200 mg PO DAILY ascorbic acid (vitamin C) [Vitamin C] 1,000 MG tablet 1,000 mg PO DAILY calcium carbonate-vitamin D3 1 EACH tablet 1 ea PO DAILY Label Comments: Pt states she does not take this medication any longer. Rx Instructions: 600mg/200mg vit d3 nystatin 15 GM cream 1 emmanuel Topical TID Qty: 30 1RF Rx Instructions: APPLY LIBERAL AMOUNT TO RASH ON BREAST FOLD(S) THREE TIMES PER DAY UNTIL RASH GONE metformin 1,000 mg tablet 500 mg PO BID Qty: 90 3RF Rx Instructions: Note new dose metoprolol succinate 25 mg tablet extended release 24 hr 25 mg PO DAILY Qty: 90 3RF Rx Instructions: 11/15/20 [facility] decreased from 50. aspirin 81 MG tablet,chewable 81 mg PO DAILY Therapeutic-M 1 TAB tablet 1 tab PO DAILY Qty: 100 0RF Discharge Instructions Instructions: Urinary Tract Infection in Women (ED), Bacterial Pneumonia (ED) Additional Instructions: At this time you have evidence of a urinary tract infection as well as pneumonia. It is important to follow-up closely for reassessment within the week to make sure you are demonstrating good improvement. A prescription for levofloxacin, the antibiotic, has been sent to your pharmacy. Please take this as directed. If you notice any worsening of your symptoms, or any new symptoms such as vomiting, diarrhea, fever, chills, shortness of breath, chest pain, numbness, weakness, or fainting , please return immediately to the emergency department for reevaluation. Please follow up with your primary care provider as soon as possible for reassessment and reevaluation. As always, it was a pleasure participating in your medical care today. Referrals: Anayeli Chamberlain DO [Primary Care Provider] - Medical Decision Making This is a 71-year-old female with a past medical history of congestive heart failure, CABG, on aspirin and Plavix, previous total knee replacement, diabetes mellitus, peripheral artery disease, who presents today for fall and back pain. Patient states that she was walking when she tripped and fell and hit the back of her head and her buttocks. She was unable to get up. She had pain in her low back buttock and the back of her head after this. She had no loss of consciousness. She denies any new numbness tingling or weakness otherwise. No other complaints at this time. Pain is made worse with movement. Improved by nothing. She denies chest or abdominal pain. Exam demonstrates mild tenderness in the lower lumbar spine, as well as the occiput area for the head. No midline cervical or thoracic pain. Hips are otherwise stable. Patient is slightly hypoxic, she is not normally on oxygen. Differential at this time includes fracture for the skull in the lumbar spine, as well as potential CHF versus pneumonia for her lungs. We will evaluate for these etiologies, monitor closely and reassess. 3:30 PM Laboratory work-up has returned, patient does demonstrate evidence of no white count, electrolytes stable, proBNP is high at 1100, thyroid function normal. Troponin normal, EKG stable. Urinalysis shows notable urinary tract infection. CT scan of the head neck, as well as the pelvis and spine are negative for acute process, however CT scan of the chest shows groundglass infiltrate in both lungs, COVID test is negative though. Effusion appears to be unchanged. Patient was initially hypoxic when she arrived however she is now saturating at around 94% on room air. We will perform an ambulatory test to see if the patient is able to function from an ambulatory perspective and go home as she does live alone. Additionally will we will be measuring oxygen saturations with this test. Physical therapy has evaluated the patient, she did very well. Lowest oxygenation was 91 to 92%. Patient tolerated this well. Able to ambulate by herself. We will get home health for home use though. Patient stable for discharge, no indication for admission at this time, patient feels comfortable with the plan. We will give Levaquin for home use for both the pulmonary infiltrates as well as the urinary component. Do recommend close follow-up with her PCP for reassessment. No indication for emergent admission at this time, but I also did discuss with the patient and family that if her symptoms continue or worsen she will need to be reassessed for potential admission and change. Discussed red flags for which to return. I have extensively reviewed the treatment plan and discharge instructions with the patient and their family. I have addressed all patient concerns at this time. The patient and family was made aware of what symptoms to monitor for that would warrant a return to the emergency department. Discussed the plan with the patient and family, they demonstrate verbal understanding and agreement with our assessment and plan at this time. The documentation in this chart was dictated using [employer] dictation software. Please excuse any dictation errors. FINDINGS: Bones: There are no fractures, listhesis, nor pars defects. There are no lytic osseous lesions evident. Chronic disc space narrowing L5-S1 and mild disc space narrowing L4-5, both spaces exhibiting vacuum phenomenon. Facet arthropathy noted no facet malalignment. PARASPINAL SOFT TISSUES: Visualized paraspinal tissues appear unremarkable. IMPRESSION: 1. Degenerative changes. No acute fractures in the lumbosacral spinal column FINDINGS: CHEST: LUNGS: There is ground-glass infiltrate in both upper lobes no also involving superior segments of the lower lobes. Small amount of pleural fluid bilaterally noted. No significant focal findings in the trachea and mainstem bronchi. No ominous distinct pulmonary nodules evident.. MEDIASTINUM: No mediastinal hematoma. Partially included thyroid gland reveals what appears to be a nodule in the right thyroid lobe, only partially included in the field of view of this chest study. No obvious hilar adenopathy. No mediastinal adenopathy. Sternotomy wires. No acute sternal fracture identified. CARDIAC: Heart size is normal. There is no pericardial effusion.Coronary artery calcification noted. Caliber thoracic aorta is within normal limits. OSSEOUS: No significant osseous lesions.No fractures.. ABDOMEN: There are abnormal densities in the left anterior wall subcutaneous fat area which are most probably fat necrosis and subsequent to bruising which was evident on a in August 2000 17 study of that time. No truly drainable fluid collection evident at this level. There is no ascites and there is no evidence of mesenteric nor bowel wall hematoma. LIVER: No evidence of a patent laceration nor other incidental hepatic findings on this noninfused study. GALLBLADDER/BILIARY: Mildly distended gallbladder. No obvious calcified gallstones. CBD is not dilated. PANCREAS: No evidence of obvious pancreatic mass nor dilatation of the pancreatic duct. SPLEEN: Spleen size normal. No splenic lacerations. No splenic lesions. ADRENALS: There are no significant adrenal masses. KIDNEYS: There is relatively symmetrical streaking around both kidneys but this was evident in 2017. No evidence of obvious acute renal laceration. No subcapsular hematomas. No incidental solid renal masses nor cysts. No calculi. No hydronephrosis. No hydroureter.. Urinary bladder mildly distended both out extravasation nor clots therein. ABDOMINAL AORTA: Calcified with mild fusiform dilatation exhibiting maximum diameter of 2.7 cm. Common iliac arteries are heavily calcified but not enlarged. There is a stent in the right iliac artery. There is also a stent in the left common iliac artery. LYMPH NODES: There is no retroperitoneal nor para-aortic adenopathy. ABDOMINAL WALL/GI: No evidence of significant anterior abdominal wall nor inguinal hernia. No evidence of bowel obstruction. PELVIS: LYMPH NODES: There is no intrapelvic nor inguinal adenopathy. GI: No evidence of appendicitis.No evidence of sigmoid diverticulitis. URINARY BLADDER: As above. REPRODUCTIVE: Uterus and adnexal regions appear unremarkable. OSSEOUS: No significant osseous lesions. No fractures evident. IMPRESSION: 1. Ground-glass infiltrate in both lungs. Covid testing recommended. Small amount of bilateral pleural fluid (but less than was evident in 2017). 2. Sternotomy wires. No sternal fracture or mediastinal hematoma. No pneumothorax. 3. Findings in the abdomen pelvis as above but without evidence of significant acute [id number]-[id number] trauma. Findings in the anterior left subcutaneous fat probably fat necrosis findings from previously injured site as per 2017 CT scan. FINDINGS: BRAIN: There are no skull fractures nor fluid in the visualized paranasal sinuses. There is no evidence of intracranial hemorrhage, mass effect, or shift of midline structures. There are no extra-axial fluid collections. The ventricles are not enlarged or shifted and there is no blood within the ventricular system nor within the basal cisterns. Mild bilateral periventricular hypodensity consistent with chronic small vessel disease. CERVICAL SPINE: There is no evidence of fracture nor listhesis. No significant prevertebral soft tissue swelling. No prominent disc space narrowing. Multilevel facet joint degenerative changes. There is no significant facet joint malalignment. No significant osseous lesions evident. IMPRESSION: No acute intracranial findings on this noninfused CT scan of the brain. No evidence of cervical spine fracture, malalignment, nor acute compromise of the cervical spinal canal. HPI General Date/Time Provider Initiated Documentation: 08/07/22 11:23. HPI Narrative: This is a 71-year-old female with a past medical history of congestive heart failure, CABG, on aspirin and Plavix, previous total knee replacement, diabetes mellitus, peripheral artery disease, who presents today for fall and back pain. Patient states that she was walking when she tripped and fell and hit the back of her head and her buttocks. She was unable to get up. She had pain in her low back buttock and the back of her head after this. She had no loss of consciousness. She denies any new numbness tingling or weakness otherwise. No other complaints at this time. Pain is made worse with movement. Improved by nothing. She denies chest or abdominal pain. Related Data Home Medications Medication Instructions Recorded Confirmed cyanocobalamin (vitamin B-12) 1,000 tab PO HS 02/22/13 08/07/22 1,000 mcg tablet (Vitamin B-12) olopatadine 0.1 % eye drops 1 drp ophthalmic (eye) BID PRN 02/22/13 08/07/22 (Patanol) aspirin 81 mg chewable tablet 81 mg PO DAILY 06/21/13 08/07/22 ascorbic acid (vitamin C) 1,000 mg 1,000 mg PO DAILY 11/07/16 08/07/22 tablet (Vitamin C) calcium carbonate 600 mg-vitamin 1 ea PO DAILY 11/07/16 08/07/22 D3 5 mcg (200 unit) tablet pyridoxine (vitamin B6) 200 mg 200 mg PO DAILY 11/07/16 08/07/22 tablet,extended release (Vitamin B-6) multivit, iron, min. comb. 1 tab PO DAILY #100 tabs 09/21/17 08/07/22 no.8-folic acid 9 mg-0.4 mg tablet (Therapeutic-M) nystatin 100,000 unit/gram topical 1 emmanuel topical TID #30 grams 04/10/18 08/07/22 cream docusate sodium 100 mg capsule 100 mg PO DAILY 08/11/19 08/07/22 loratadine 10 mg tablet 10 mg PO DAILY allergies #90 tabs 08/11/19 08/07/22 fluocinolone acetonide oil 0.01 % 5 drp otic (ear) BID 14 days #20 mL 08/02/21 08/07/22 ear drops (Flac Otic (ear) Oil) blood sugar diagnostic (Blood #100 strips 08/03/21 07/08/22 Glucose Test strips) albuterol sulfate 90 mcg/actuation 2 puff inhalation Q4H PRN 08/23/21 08/07/22 aerosol inhaler (Proventil HFA) bronchospasm #1 g fluticasone propionate 50 1 spray intranasal QHS #16 grams 10/30/21 08/07/22 mcg/actuation nasal spray,suspension (Flonase Allergy Relief) sodium chloride 0.65 % nasal spray 2 spray intranasal ONCE #60 mL 10/30/21 08/07/22 aerosol (Saline Nasal Mist) metformin 1,000 mg tablet 500 mg PO BID #90 tab-caps 12/31/21 08/07/22 metoprolol succinate 25 mg 25 mg PO DAILY #90 tabs 12/31/21 08/07/22 tablet,extended release 24 hr atorvastatin 40 mg tablet 40 mg PO QHS #90 tabs 02/07/22 08/07/22 clopidogrel 75 mg tablet 75 mg PO DAILY #90 tab-caps 02/07/22 08/07/22 guaifenesin 1,200 mg tablet, 1,200 mg PO BID #60 tabs 02/07/22 08/07/22 extended release 12 hr nitroglycerin 0.4 mg sublingual 0.4 mg sublingual PRN #7 tabs 02/07/22 08/07/22 tablet oxybutynin chloride 5 mg tablet 5 mg PO TID #270 tab-caps 02/07/22 08/07/22 pregabalin 150 mg capsule (Lyrica) See Rx Instructions PO DIRECTED 02/07/22 08/07/22 #270 tab-caps furosemide 20 mg tablet See Rx Instructions PO DAILY #200 05/02/22 08/07/22 tabs ibuprofen 800 mg tablet 800 mg PO TID PRN pain #90 tab-caps 05/02/22 08/07/22 tramadol 50 mg tablet 50 mg PO QHS PRN leg pain #90 tabs 05/02/22 08/07/22 zinc oxide 15 % topical cream 1 applic topical BID PRN diaper 05/02/22 08/07/22 rash #99 grams levofloxacin 750 mg tablet 750 mg PO DAILY 6 days #6 tabs 08/07/22 Previous Rx's Medication Instructions Recorded multivit, iron, min. comb. 1 tab PO DAILY #100 tabs 09/21/17 no.8-folic acid 9 mg-0.4 mg tablet (Therapeutic-M) nystatin 100,000 unit/gram topical 1 emmanuel topical TID #30 grams 04/10/18 cream loratadine 10 mg tablet 10 mg PO DAILY allergies #90 tabs 08/11/19 fluocinolone acetonide oil 0.01 % 5 drp otic (ear) BID 14 days #20 mL 08/02/21 ear drops (Flac Otic (ear) Oil) blood sugar diagnostic (Blood #100 strips 08/03/21 Glucose Test strips) albuterol sulfate 90 mcg/actuation 2 puff inhalation Q4H PRN 08/23/21 aerosol inhaler (Proventil HFA) bronchospasm #1 g fluticasone propionate 50 1 spray intranasal QHS #16 grams 10/30/21 mcg/actuation nasal spray,suspension (Flonase Allergy Relief) sodium chloride 0.65 % nasal spray 2 spray intranasal ONCE #60 mL 10/30/21 aerosol (Saline Nasal Mist) metformin 1,000 mg tablet 500 mg PO BID #90 tab-caps 12/31/21 metoprolol succinate 25 mg 25 mg PO DAILY #90 tabs 12/31/21 tablet,extended release 24 hr atorvastatin 40 mg tablet 40 mg PO QHS #90 tabs 02/07/22 clopidogrel 75 mg tablet 75 mg PO DAILY #90 tab-caps 02/07/22 guaifenesin 1,200 mg tablet, 1,200 mg PO BID #60 tabs 02/07/22 extended release 12 hr nitroglycerin 0.4 mg sublingual 0.4 mg sublingual PRN #7 tabs 02/07/22 tablet oxybutynin chloride 5 mg tablet 5 mg PO TID #270 tab-caps 02/07/22 pregabalin 150 mg capsule (Lyrica) See Rx Instructions PO DIRECTED 02/07/22 #270 tab-caps furosemide 20 mg tablet See Rx Instructions PO DAILY #200 05/02/22 tabs ibuprofen 800 mg tablet 800 mg PO TID PRN pain #90 tab-caps 05/02/22 tramadol 50 mg tablet 50 mg PO QHS PRN leg pain #90 tabs 05/02/22 zinc oxide 15 % topical cream 1 applic topical BID PRN diaper 05/02/22 rash #99 grams levofloxacin 750 mg tablet 750 mg PO DAILY 6 days #6 tabs 08/07/22 Allergies Allergy/AdvReac Type Severity Reaction Status Date / Time hydrocodone bitartrate Allergy Severe severe Verified 08/07/22 11:28 [From Vicodin] facial swelling amoxicillin Allergy rash, SOB Verified 08/07/22 11:28 lactose AdvReac Intermediate Diarrhea Verified 08/07/22 11:28 Environmental AdvReac Intermediate Congestion Uncoded 08/07/22 11:28 General ALEXANDER: 3 Review of Systems All systems reviewed & are unremarkable except as noted in HPI and below PFSH All Active Problems (Updated 08/07/22 @ 15:28 by Vitaly Eng DO) Fall (Acute) Pulmonary infiltrate (Acute) Acute UTI (Acute) Skin lesion of cheek (Acute) left cheek, plaque .. skin-colored/just barely pigmented . appears raised, but not palpable. No blistering per close exam. Monitor. Arthritis of right shoulder region (Acute) Dysfunction of right rotator cuff (Acute) Bullous pemphigoid (Acute) Myopathy (Acute) Camptocormia (Acute) Kyphosis (Acute) Pt notes kyphotic posturing.. possible association with weakness despite strong exercise routine. Chronic rhinitis (Acute) Bradycardia (Acute) per clinic today (08/23/21)(37, 60) .. per PT 08/22/21 (40 bpm) .. Short of breath on exertion (Acute) Acute on chronic worsening .. CHF (congestive heart failure) (Chronic) Echo (02/2021) shows reduced function; EF 53%. Lasix 40mg, w/ +20 if > 3lb wt gain.. 07/2021, ik. Mitral stenosis (Chronic) mild to moderate, monitor with serial ECHOs, metoprolol BMI 50.0-59.9, adult (Acute) Left knee DJD (Acute) Most recent Depo-Medrol injection: 04/11/22; 01/10/22; 06/28/21; 03/21/2021; 10/11/21 Heart failure with reduced ejection fraction (Acute) Echo (03/20/21), EF 53% Normochromic normocytic anemia (Acute) NSTEMI (non-ST elevated myocardial infarction) (Acute) unknown date [facility] Murmur (Acute) New? 08/2019 ECHO essentially normal Pes anserine bursitis (Acute) Lung nodule, solitary (Acute) 6mm (?) per 02/02/18 CT, no change since 07/28/17 image (but jennifer 8.1mm in Sept). Sup RLL. Planned q05/05 mo eval via imaging. Appears new since April 2017 CTA (suspected PE). per UTD: follow 6-8mm nodule via CT. Xerostomia (Chronic 12/09/13) Urinary urgency (Acute 07/09/13) Restless legs syndrome (Chronic 02/26/13) PAD (peripheral artery disease) (Chronic 05/08/17) bilateral iliac stents placed [facility] Dr. Packer f/u ov 05/14/18. rtc 6mo. w. MARTÍN's and bilateral iliac duplex. Robert Marin MD. [facility] vascular. ,03/15/22 significant deterioration on Left, repeat MARTÍN's in 1 yr. Hyperlipidemia (Chronic 02/26/13) CAD; LDL baseline 124 Lumbar radiculopathy (Chronic 07/09/13) 11/19/16 MRI disc herniation L4-5, L5-S1. Nerve block/[facility] 10/2018. 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 Plan:document food and BS 4-5 days. mail them in for review and increase vegetables at night. 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 (Chronic 07/09/13) Cor athrscl-uns vessel (Chronic 05/20/12) hx [place] Chronic right-sided low back pain with left-sided sciatica (Chronic 06/16/18) 07/15/18 Seen at [facility], Lumbar Spine MRI Chronic rhinitis (Chronic 11/04/13) Cystocele, midline (Chronic 02/26/13) Coronary atherosclerosis (Chronic 05/20/12) hx [place] B12 deficiency (Acute 05/20/12) Other B-complex deficiencies (Acute 05/20/12) Allergic rhinitis (Acute 07/29/13) Acute myocardial infarction (Acute 07/09/13) MPI 11/2014 no ischemia EF 52%; h/o inferolateral infarction 1988 due to spasm, neg coronaries, attributed to smoking Lumbar stenosis (Chronic) Numbness and tingling in left hand (Acute) will always be there, left ulnar access for grafts for leg Peripheral vascular disease (Chronic) Chronic low back pain without sciatica (Acute) Osteoarthritis (Chronic) CAD (coronary artery disease) (Chronic) Glossitis (Acute) Lumbar spondylosis (Chronic) Vitamin D deficiency (Chronic) Lactose intolerance (Chronic) Sleep apnea, obstructive (Chronic) Cystocele (Chronic) Medical History Benign hypertension History of myocardial infarction a. 1988. Hyperlipidemia Trigger finger, left middle finger Trigger finger, right middle finger Trigger thumb of left hand s/p ortho surgery, [facility] Surgical History Bialteral illiac stents (05/07/17) Dr Packer Coronary Artery Bypass Gaft (CABG) (05/15/17) CAD s/p CABG x2 (05/15/17) [facility] (adm date 05/12/17.Discharge date 05/29/2017) History of Surgical Procedure a. Right trigger thumb release. b. Cardiac catheterization at [facility] in 1988, no obstruction found. c. Tonsillectomy. d. Bilateral endoscopic carpal tunnel release. e. Ganglion cyst removal from right wrist. f. Colonoscopy. g. Right knee arthroscopy. Open Carpal Tunnel release bilateral Replacement of total knee joint (07/18/14) Right total knee replacement Dr. Garcia at [facility] Status post vascular bypass Tonsillectomy and adenoidectomy Trigger Finger release (06/08/13) Dr. Garcia Family History Other Benign hypertension Social History Smoking/Tobacco Use Status: Former Tobacco Use Smoking risk assessment performed?: Yes Alcohol Intake: never Drug use: Never Substance use type: does not use Housing: house Number of Children: 2 number of grandchildren: 2 Communication Needs: None current occupation: retired from [employer] Current gender identity: female What type of physical activity do you participate in: none Seatbelt use: always Drive intox or ride w/intox driver's license reviewing officer: No Working smoke detector in home: Yes Do you feel safe at home: Yes Do you feel safe in your relationship?: Yes Exam Narrative Exam Narrative: 1.Const: Well-nourished, Well-developed, appearing stated age 2.Eyes: PERRL, no conjunctival injection, and symmetrical lids. 3.ENT: Atraumatic external nose and ears. Moist MM. Neck: Symmetric, trachea midline, No thyromegaly. There is no evidence of raccoon eyes, hernandez sign, CSF rhinorrhea, mastoid tenderness, cranial crepitus, hemotympanum, exophthalmos, or hyphema. Patient demonstrates intact dentition with no signs of tooth avulsion or fracture, no signs of jaw deformity, no evidence of a LeFort's fracture, with an intact palate, nose and orbital region. There is no evidence of a nasal septal hematoma. No proptosis. Jaw closes symmetrically. Airway is clear. 4.CVS: +S1/S2, No murmurs or gallops. Peripheral pulses 2+ and equal in all extremities. Brisk capillary refill in all extremities. 5.RESP: Unlabored respiratory effort. Clear to auscultation bilaterally. No wheezes rales or rhonchi 6.GI: Soft, Nontender/Nondistended, No hepatosplenomegaly. No guarding or rebound. 7.MSK: Normocephalic/Atraumatic, Extremities w/o deformity or ttp No cyanosis or clubbing, Normal movement of all extremities. Mild tenderness at L3-L4-L5 midline. No weakness in lower extremities. No hip pain bilaterally. No pelvic instability. 8.Skin: Warm, Dry. No rashes or lesions. 9.Neuro: director of food and nutrition services II-XII grossly intact. Sensation grossly intact, no focal neurologic deficits. 10.Psych: (AAO) x3. Appropriate mood and affect
--- NOTE | 2022-08-07 11:24 | DI.CT_ITS ---
Exam(s) CT HEAD CERVICAL SPINE WO EXAM: CT HEAD CERVICAL SPINE WO CLINICAL HISTORY: fell, hit posterior head, on plavix/ASA. TECHNIQUE: Imaging Protocol: Axial computed tomography images with coronal and sagittal reformatted images were created and reviewed COMPARISON: CT CT HEAD WO from 12/04/2020 FINDINGS: BRAIN: There are no skull fractures nor fluid in the visualized paranasal sinuses. There is no evidence of intracranial hemorrhage, mass effect, or shift of midline structures. There are no extra-axial fluid collections. The ventricles are not enlarged or shifted and there is no blo od within the ventricular system nor within the basal cisterns. Mild bilateral periventricular hypodensity consistent with chronic small vessel disease. CERVICAL SPINE: There is no evidence of fracture nor listhesis. No significant prevertebral soft tissue swelling. No prominent disc space narrowing. Multilevel facet joint degenerative changes. There is no significant facet joint malalignment. No significant osseous lesions evident. IMPRESSION: No acute intracranial findings on this noninfused CT scan of the brain. No evidence of cervical spine fracture, malalignment, nor acute compromise of the cervical spinal can al. RADIATION DOSE DELIVERED: 1,575.37mGy.cm Total DLP DATA REPOSITORY: All CT scans at this facility are submitted to the National Radiology Data Registry (NRDR) Dose Index Registry (DIR) with the [employer] (ACR). RADIATION OPTIMIZATION: All CT scans at this facility use at least one of these dose optimization te chniques: automated exposure control; mA and/or kV adjustment per patient size (includes targeted exa ms where dose is matched to clinical indication); or iterative reconstruction.
[2022-08-07 11:47] LABS: Bilirubin Negative (Negative); Blood Negative (Negative); Clarity Cloudy (Clear); Glucose Negative (Negative); Ketones Negative (Negative); Leukocyte Esterase Moderate (Negative); Nitrite Negative (Negative); Urobilinogen 0.2 EU/dL (Up TO 0.2)
[2022-08-07 11:55] LABS: Bacteria Many HPF (Negative); Crystals Few Amorphous HPF (Negative); Epithelial Cells Few HPF (Negative); Other Cells Rare Renal (Negative); RBC 0-2 HPF (0-2); WBC >50 HPF (0-5)
[2022-08-07 11:56] LABS: C & S Indicated? Yes; Casts Negative LPF (Negative); Mucus Negative (Negative)
[2022-08-07 12:16] LABS: Abs Immature Grans 0.03 10^3/uL (0.0-0.06); Absolute Basophil Count 0.07 10^3/uL (0.0-0.2); Absolute Eosinophil Count 0.27 10^3/uL (0.0-0.7); Absolute Lymphocyte Count 2.03 10^3/uL (1.2-3.4); Absolute Monocyte Count 0.57 10^3/uL (0.1-0.8); Absolute Neutrophil Count 6.46 10^3/uL (1.2-6.7); Basophils % 0.7; Eosinophils % 2.9; HCT 42.1 % (36.0-46.0); Immature Grans % 0.3; Lymphocytes % 21.5; MCH 30.4 pg (27.0-33.0); MCHC 33.3 % (32.0-36.0); MCV 92 fL (80-95); MPV 10.4 fL (8.0-11.0); Neutrophils % 68.6; Platelet Count 265 10^3/uL (130-400); RDW 14.4 % (11.7-14.6); RDW-SD 48.2 fL; WBC 9.43 10^3/uL (4.4-10.8)
[2022-08-07] MEDS: ACETAMINOPHEN 1,000 MG/100 ML BTL 400 MG IVPB (12:16)
[2022-08-07 12:17] LABS: Source Nasal/Nares
[2022-08-07 12:32] LABS: PTT Activated 18.7 sec (21.0-27.5); Prothrombin Time 10.4 sec (9.3-11.0)
[2022-08-07] MEDS: levoFLOXacin 750 MG/150 ML BAG 100 MG IVPB (12:38)
[2022-08-07] MEDS: MORPHine 4 MG/ML SYR IVP (12:54)
[2022-08-07 13:04] LABS: COVID-19 PCR Negative (Negative)
[2022-08-07 13:24] LABS: ALT 22 U/L (14-59); AST 17 U/L (15-37); Albumin 3.1 g/dL (3.4-5.0); Alkaline Phosphatase 96 U/L (46-116); Anion Gap 4.1 mmol/L (3-11); BUN 10 mg/dL (7-18); Bilirubin, Total 0.5 mg/dL (0.2-1.0); CO2 31.9 mmol/L (21.0-32.0); Calcium 8.6 mg/dL (8.5-10.1); Chloride 102 mmol/L (98-107); Estimated GFR 60.98 (mL/min/1.73m2); Glucose 165 mg/dL (74-106); NT-proBNP 1136 pg/mL (<300); Potassium 3.5 mmol/L (3.5-5.1); Sodium 138 mmol/L (136-145); TSH (W/Ref FT4) 1.13 uIU/mL (0.36-3.74); Total Protein 6.6 g/dL (6.4-8.2); Troponin I < 50 ng/L (<or=60)
--- NOTE | 2022-08-07 15:05 | PT.INIE ---
Date of service: 08/07/22 Time of Service: 15:05 PT Notes Visit Reasons: [facility] Emergency Department Initial Evaluation Date: 08/07/2022 Referring Doctor: Vitaly Eng MD PT Orders: PT CONSULT: Fall safety assessment. PT currently in the ED Room 4 Precautions: Fall. Standard. Activity as tolerated. Patient Profile/Admitting Diagnosis: Dena is a 71-year-old female who presented to the ED on 08/07/2022 due to a fall which resulted to new onset back pain. CT scan of the lumbosacral spine did not show any acute fracture nor dislocation. Imaging revealed chronic L5-S1 and L4-L5 disc space narrowing. Neck CT negative for acute abnormality. PMHX: All Active Problems?(Updated 08/07/22 @ 15:28 by Vitaly Eng, ) Fall (Acute) Pulmonary infiltrate (Acute) Acute UTI (Acute) Skin lesion of cheek (Acute) left cheek, plaque .. skin-colored/just barely pigmented . appears raised, but not palpable. No blistering per close exam. Monitor. Arthritis of right shoulder region (Acute) Dysfunction of right rotator cuff (Acute) Bullous pemphigoid (Acute) Myopathy (Acute) Camptocormia (Acute) Kyphosis (Acute) Pt notes kyphotic posturing.. possible association with weakness despite strong exercise routine. Chronic rhinitis (Acute) Bradycardia (Acute) per clinic today (08/23/21)(37, 60) .. per PT 08/22/21 (40 bpm) .. Short of breath on exertion (Acute) Acute on chronic worsening ..CHF (congestive heart failure) (Chronic) Echo (02/2021) shows reduced function; EF 53%. Lasix 40mg, w/ +20 if > 3lb wt gain.. 07/2021, ik. Mitral stenosis (Chronic) mild to moderate, monitor with serial ECHOs, metoprololBMI 50.0-59.9, adult (Acute) Left knee DJD (Acute) Most recent Depo-Medrol injection: 04/11/22; 01/10/22; 06/28/21; 03/21/2021; 10/11/21 Heart failure with reduced ejection fraction (Acute) Echo (03/20/21), EF 53% Normochromic normocytic anemia (Acute) NSTEMI (non-ST elevated myocardial infarction) (Acute) unknown date [facility] Murmur (Acute) New? 08/2019 ECHO essentially normal Pes anserine bursitis (Acute) Lung nodule, solitary (Acute) 6mm (?) per 02/02/18 CT, no change since 07/28/17 image (but jennifer 8.1mm in Sept). Sup RLL. Planned q6/12 mo eval via imaging. Appears new since April 2017 CTA (suspected PE). per UTD: follow 6-8mm nodule via CT.Xerostomia (Chronic 12/09/13) Urinary urgency (Acute 07/09/13) Restless legs syndrome (Chronic 02/26/13) PAD (peripheral artery disease) (Chronic 05/08/17) bilateral iliac st[place] [facility] [place] Packer f/u ov 05/14/18. rtc 6mo. w. MARTÍN's and bilateral iliac duplex. Robert Marin MD. [facility] [place]. ,03/15/22 significant deterioration on Left, repeat MARTÍN's in 1 yr. Hyperlipidemia (Chronic 02/26/13) CAD; LDL baseline 124 Lumbar radiculopathy (Chronic 07/09/13) 11/19/16 MRI disc herniation L4-5, L5-S1. Nerve block[place] [place]. Lactose intolerance (Chronic 04/07/14) Hypertrophy of nasal turbinates (Acute 11/04/13) Hyperlipidemia (Chronic 02/26/13) CAD; LDL baseline 124 Essential hypertension (Chronic 07/27/13) WNL, doing well, tolerating meds 12/01/18Edema (Chronic 07/09/13) Improved, 09/2018 Diabetic polyneuropathy associated with type 2 diabetes mellitus (Chronic 11/10/17) Diabetes mellitus (Chronic 10/30/12) A1c goal 7.5 04/24/18 visit w/ Appraisal TechnicianAkanksha. Plan:document food and BS 4-5 days. mail them in for review and increase vegetables at night. 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 (Chronic 07/09/13) Cor athrscl-uns vessel (Chronic 05/20/12) hx NM Chronic right-sided low back pain with left-sided sciatica (Chronic 06/16/18) 07/15/18 Seen at [facility], Lumbar Spine MRI Chronic rhinitis (Chronic 11/04/13) Cystocele, midline (Chronic 02/26/13) Coronary atherosclerosis (Chronic 05/20/12) hx NM B12 deficiency (Acute 05/20/12) Other B-complex deficiencies (Acute 05/20/12) Allergic rhinitis (Acute 07/29/13) Acute myocardial infarction (Acute 07/09/13) MPI 11/2014 no ischemia EF 52%; h/o inferolateral infarction 1988 due to spasm, neg coronaries, attributed to smoking Lumbar stenosis (Chronic) Numbness and tingling in left hand (Acute) will always be there, left ulnar access for grafts for legPeripheral vascular disease (Chronic) Chronic low back pain without sciatica (Acute) Osteoarthritis (Chronic) CAD (coronary artery disease) (Chronic) Glossitis (Acute) Lumbar spondylosis (Chronic) Vitamin D deficiency (Chronic) Lactose intolerance (Chronic) Sleep apnea, obstructive (Chronic) Cystocele (Chronic) Medical History? Benign hypertension History of myocardial infarction a. 1988.Hyperlipidemia Trigger finger, left middle finger Trigger finger, right middle finger Trigger thumb of left hand s/p ortho surgeryRadha Surgical History? Bialteral illiac stents (05/07/17) Dr Packer Coronary Artery Bypass Gaft (CABG) (05/15/17) CAD s/p CABG x2 (05/15/17) [facility] [place].Discharge date 05/29/2017) History of Surgical Procedure a. Right trigger thumb release. b. Cardiac [place] [facility] [place], no obstruction found. c. Tonsillectomy. d. Bilateral endoscopic carpal tunnel release. e. Ganglion cyst removal from right wrist. f. Colonoscopy. g. Right knee arthroscopy.Open Carpal Tunnel release bilateral Replacement of total knee joint (07/18/14) Right total knee replacement Dr. Garcia at [facility] Status post vascular bypass Tonsillectomy and adenoidectomy Trigger Finger release (06/08/13) Dr. Garcia Social History/Home Situation: Lives alone in a private home with onse step to enter with a rail on one side. Daughter lives close by and has been a good support. Ambulatory with FWW. Equipment Owned/DME: Wheelchair, FWW, 4WW SPCs, Bed with head and leg controls Subjective: Reports weakness, unsure abour how she will do today. Agreeable to getting out of bed. Needed to use bathroom to void urine. Objective: General Observation: Supine in bed. High BMI. In NAD. Mental Status: Alert and oriented as to person, place, time, and purpose. Able to pay attention, focus, and respond appropriately. Pain: 3-4/10 in mid and low back area Vital Signs: WNL as closely monitored by nursing staff ROM: Right Upper Extremity: Shoulder Flexion AROM 50% limited. Shoulder abduction AROM 50% limited. Elbow flexion WFL. Wrist flexion WFL. Functional opening and closing of hand WFL. Left Upper Extremity: Shoulder Flexion AROM 50% limited. Shoulder abduction AROM 50% limited. Elbow flexion WFL. Wrist flexion WFL. Functional opening and closing of hand WFL. Right Lower Extremity: Hip flexion AROM 50% limited due to pain at end range. Hip abduction AROM 50% limited due to pain at end range. Knee flexion 10 degrees to 90 degrees. Knee extensors -10 degrees. Ankle dorsiflexion to neutral only. Ankle plantarflexion WFL. Left Lower Extremity: Hip flexion AROM 50% limited due to pain at end range. Hip abduction AROM 50% limited due to pain at end range. Knee flexion 10 degrees to 90 degrees. Knee extensors -10 degrees. Ankle dorsiflexion to neutral only. Ankle plantarflexion WFL. Strength: Core strength: 3-/5 Right Upper Extremity: Shoulder flexors 3-/5. Shoulder abductors 3-/5. Elbow flexors 4-/5. Elbow extensors 4-/5. Decator Operator strong. Left Upper Extremity: Shoulder flexors 3-/5. Shoulder abductors 3-/5. Elbow flexors 4-/5. Elbow extensors 4-/5. Decator Operator strong. Right Lower Extremity: Hip flexors 3-/5. Hip abductors 3-/5. Knee flexors 4-/5. Knee extensors 3-/5. Ankle dorsiflexors 3-/5. Ankle plantarflexors 4-/5. Left Lower Extremity: Hip flexors 3-/5. Hip abductors 3-/5. Knee flexors 4-/5. Knee extensors 3-/5. Ankle dorsiflexors 3-/5. Ankle plantarflexors 4-/5. Bed Mobility/Transfers: Supine to sit with hand held assist Sit to stand with contact guard assist with FWW Stand to sit with contact guard assist with FWW Bed to toilet seat with contact guard assist with FWW Toilet seat to bed with contact guard assist with FWW Gait: Instructed patient with level surface ambulation of 50 feet x 2 requiring stand by assist. Morena decreased. Step height decreased. Step length decreased. Balance: Static Sitting: Normal Dynamic Sitting: Normal Static Standing: Fair Dynamic Standing: Fair Special Tests: Mobility Limitations Standardized Measure [facility] AM-PAC 6 clicks Basic Mobility Inpatient Short Form: Raw Score: 19 CMS Score: 42% deficit Informed Consent/Education: Patient was instructed in purpose of PT consult. Agreeable to HH PT visits to ensure safety at home prior to return to OP PT at [facility]. Assessment: Daughter a good supoort. Agreeable to HH PT/OT services. Patient presents with clinical signs and symptoms consistent with current/admitting diagnoses that have resulted to mobility limitations, gait instability, generalized weakness, and overall ADL decline as demonstrated by the following impairment level findings: 1. Decreased strength to B UE/LE major muscle groups 2. Impaired standing balance 3. Impaired activity tolerance 4. Limitation of joint range of motion in B shoulder and B LE joints 5. Fatigue 6. Mild pain in back Impairments are contributing to the following functional limitations: 1. Decline in bed mobility skills 2. Decline in transfer skills 3. Difficulty with ambulation without assistive device 4. Increased completion time for mobility ADL performance 5. Increased risk for falls 6. Difficulty with managing steps alone safely Patient is assessed as a [id number] moderate complexity based on the following: History: 71-year-old female with past medical history as indicated above Examination: Demonstrable impairment in strength, balance, and mobility level with underlying impairments and functional limitations as exhibited above as well as deficit score of 42% utilizing the [facility] Mobility Inpatient Short Form Presentation: Stable Decision Makin moderate complexity Goals: N/A. PT evaluation and functional mobility training only. Plan of Care/Treatment Plan: N/A. PT evaluation and functional mobility training only. DISCHARGE RECOMMENDATIONS: [] Home with no services [] [X] Home with services. Patient will benefit from home health PT services in order to progress mobility level using least restrictive assistive ambulatory device, assess home safety, identify additional equipment needs, and establish a functional maintenance program that will increase ability of patient to remain at home. [] Home with outpatient PT [] [] SNF for continued rehabilitation [] [] [facility] [] [] SNF versus LTC based on ability to participate and progress [] TREATMENT CODE/TIME: 08361 x 20 minutes, 37962 x 15 minutes beginning at 15:05 PM. Thank you for the opportunity to participate in the care of this patient. Jemima Smith PT, DPT, CLT [facility] [place], [place]
[2022-08-07 15:45] VITALS: BP 97/64; PULSE 122; TEMP 36.5; O2SAT 100
--- NOTE | 2022-08-08 16:18 | CMACTNOTE_ITS ---
- If Service Date Differs Date of service: 08/08/22 Time of Service: 16:18 Care Management Activity Note Dena presents in the ED after falling at home. At the request of ED provider, CM coordinates a referral to [facility] for new in- home PT services.
== END 2022-08-07 16:00 | disposition home or self-care (01) ==
PROVIDERS: Emergency Provider Student in an Organized Health Care Education/Training Program; PCP Student in an Organized Health Care Education/Training Program
DX: N39.0 Urinary tract infection, site not specified (principal); R91.8 Other nonspecific abnormal finding of lung field; E11.51 Type 2 diabetes mellitus with diabetic peripheral angiopathy without gangrene; G89.11 Acute pain due to trauma; B96.89 Other specified bacterial agents as the cause of diseases classified elsewhere; Z20.822 Contact with and (suspected) exposure to COVID-19; I11.0 Hypertensive heart disease with heart failure; I50.9 Heart failure, unspecified; Z87.891 Personal history of nicotine dependence; M54.50 Low back pain, unspecified; R51.9 Headache, unspecified; Z95.1 Presence of aortocoronary bypass graft; Z79.02 Long term (current) use of antithrombotics/antiplatelets; Z79.82 Long term (current) use of aspirin; W01.198A Fall on same level from slipping, tripping and stumbling with subsequent striking against other object, initial encounter
CPT/HCPCS: 36415; 71250; 80053; 87635; 93005; 96365; 96375; 97162; 97530; 99284; 70450; 72125; 74176; 81003; 81015; 83880; 84443; 84484; 85025; 85610; 85730; 87086; 93010; J0131; J1956; J2270

== ENCOUNTER 2022-08-23 11:31 | Outpatient (CLI) | payer MEDICARE, OTHER, SELFPAY ==
--- NOTE | 2022-08-23 11:30 | RT.EKG_ITS ---
APPROVED REPORT Exam: Resting ECG Reason for Exam: tachycardia Patient Location: O HR:112 bpm ECG Measurements Heart Rate 112 AXIS WI [id number] P [id number] QRSd 96 QRS 36 QT 341 T 120 QTc 466 Conclusion Atrial fibrillation...V-rate 83-153, irreg A-activity Anterior infarct, old...Q >40mS, abnormal ST-T, V2-V5
== END 2022-08-23 11:32 | disposition home or self-care (01) ==
LOC: DI.KIM 11:33
PROVIDERS: PCP Student in an Organized Health Care Education/Training Program; Visit Provider Family Medicine
DX: R00.0 Tachycardia, unspecified (principal); R94.31 Abnormal electrocardiogram [ECG] [EKG]; I25.2 Old myocardial infarction; I48.91 Unspecified atrial fibrillation
CPT/HCPCS: 93010

== ENCOUNTER → 2022-08-29 10:45 | Outpatient (BNVA) | payer MEDICARE, OTHER, SELFPAY | PROVIDERS: PCP Student in an Organized Health Care Education/Training Program; Referring Provider Student in an Organized Health Care Education/Training Program; Visit Provider Psychiatry & Neurology Neurology | DX: G89.29 Other chronic pain (principal); M70.71 Other bursitis of hip, right hip; M54.50 Low back pain, unspecified; M40.204 Unspecified kyphosis, thoracic region; I10 Essential (primary) hypertension; E11.42 Type 2 diabetes mellitus with diabetic polyneuropathy; I73.9 Peripheral vascular disease, unspecified; G72.9 Myopathy, unspecified | CPT/HCPCS: 99214 ==

== ENCOUNTER → 2022-09-16 10:41 | Outpatient (BNVA) | payer MEDICARE, OTHER, SELFPAY | PROVIDERS: PCP Student in an Organized Health Care Education/Training Program; Referring Provider Student in an Organized Health Care Education/Training Program; Visit Provider Student in an Organized Health Care Education/Training Program | DX: M19.011 Primary osteoarthritis, right shoulder (principal); M67.911 Unspecified disorder of synovium and tendon, right shoulder | CPT/HCPCS: 99213 ==

== ENCOUNTER 2022-10-24 07:49 | Outpatient (CLI) | payer MEDICARE, OTHER, SELFPAY ==
[2022-10-24 08:05] VITALS: BP 139/76; PULSE 61; RESP 20; TEMP 36.9; O2SAT 98
[2022-10-24 08:32] LABS: Prothrombin Time 10.5 sec (9.3-11.0)
[2022-10-24] MEDS: methylPREDNISolone ACETATE 80 MG/ML VIAL IJ (10:30)
--- NOTE | 2022-10-24 10:33 | PDOC.PAIN ---
Date of service: 10/24/22 Time of Service: 10:39 Pain Clinic Procedure Note Procedure Note Procedure Note: LUMBAR INTERLAMINAR EPIDURAL STERIOID INJECTION PROCEDURE NOTE Dena Mojica has been referred to the [facility] for a lumbar epidural steroid injection. Pre-operative diagnosis: Lumbosacral Radiculopathy Post-operative diagnosis: Same Pre-Procedure Pain: VAS= 7/10 The patient complains of low back pain with pain radiating down the bilateral legs. Dena was greeted by the nurse who verified patients name and . The patient was then taken to the fluoroscopy suite. Dena was interviewed and the medical record reviewed. There were no medical, pharmacologic, radiographic, or other structural contraindications to attempting fluoroscopically guided lumbar epidural steroid injection. Risks and potential side effects, as well as potential benefits of the procedure were reviewed with her. Her voiced concerns were addressed. After I was assured that informed consent was obtained, the patient consent form was signed. Standard time-out procedure was performed. Dena was placed in the prone position on the fluoroscopy table and automated blood pressure cuff and pulse oximeter applied. The skin entry point for entering/approaching the epidural space for the lumbar epidural steroid injection was marked. Following thorough chlorhexadine preparation of the skin and draping and 1% lidocaine infiltration of the skin entry point and subcutaneous tissues, an 18 gauge Touhy needle was placed and advanced under fluoroscopic guidance and with loss of resistance technique into the L5-S1 epidural space. Needle tip placement and depth were aided and confirmed by fluoroscopy. There was no paresthesia or return of blood or CSF through the needle. 2 mls of Omnipaque 240 was injected with clear epidural spread confirmed with fluoroscopy. 80 mg of preservative-free Depomedrol (80 mg/cc) was injected. This was followed by 1 ml of preservative-free normal saline to flush the steroid out of the needle. There was not any unusual discomfort expressed by Dena and the needle was removed. (48 mls of Omnipaque and 5 mg of Dexamethasone was wasted) Dena's vital signs were stable throughout the procedure and were as recorded in nursing records. Follow up plans and appointments were discussed with Dena . The patient is set to follow up with our office as needed. Post procedure instruction was given as documented in nursing records and having met discharge criteria he was discharged from the Pain Management Center. Post Procedure Pain: VAS= 5/10 Comments: If this procedure is successful in helping with pain and improving her function, it can be completed a maximum of 3 times every 12 months. Brandin Moscoso DO, MPH ABPMR-subspecialty board certification in Pain Medicine [facility]
--- NOTE | 2022-10-24 10:34 | DI.RAD_ITS ---
Exam(s) XR PAIN CLINIC LUMBAR SP 2V EXAM: XR PAIN CLINIC LUMBAR SP 2V CLINICAL HISTORY: Dx: Lumbar Radiculopathy TECHNIQUE: 2D and realtime digital imaging was performed. COMPARISON: No exams were available for comparison FINDINGS: C-arm fluoroscopy was utilized by Dr. Moscoso during reported lumbar epidural steroid injection. Hard c opy shows needle placement at L5-S1. IMPRESSION: RADIATION DOSE DELIVERED: Scoobyr=10.51 mGy
[2022-10-24] MEDS: Omnipaque 240 MG/ML 50 ML BTL IJ (10:39)
[2022-10-24 10:50] VITALS: BP 153/91; PULSE 85; RESP 22; O2SAT 98
== END 2022-10-24 07:50 | disposition home or self-care (01) ==
LOC: PC 07:49
PROVIDERS: PCP Student in an Organized Health Care Education/Training Program; Visit Provider Preventive Medicine Occupational Medicine
DX: M54.17 Radiculopathy, lumbosacral region (principal); M54.50 Low back pain, unspecified
CPT/HCPCS: 36415; 62323; 72100; 85610; J1040; Q9967

== ENCOUNTER → 2022-11-11 13:12 | Outpatient (BNVA) | payer MEDICARE, OTHER, SELFPAY | PROVIDERS: PCP Student in an Organized Health Care Education/Training Program; Referring Provider Student in an Organized Health Care Education/Training Program; Visit Provider Student in an Organized Health Care Education/Training Program | DX: I50.20 Unspecified systolic (congestive) heart failure (principal); I25.10 Atherosclerotic heart disease of native coronary artery without angina pectoris; I25.2 Old myocardial infarction; E66.9 Obesity, unspecified; Z68.43 Body mass index [BMI] 50.0-59.9, adult; M19.011 Primary osteoarthritis, right shoulder; M67.911 Unspecified disorder of synovium and tendon, right shoulder | CPT/HCPCS: 99213 ==

== ENCOUNTER 2022-12-04 08:29 | Outpatient (CLI) | payer MEDICARE, OTHER, SELFPAY ==
[2022-12-04 08:43] VITALS: BP 128/68; PULSE 80; RESP 20; TEMP 36.8; O2SAT 98
[2022-12-04] MEDS: fentaNYL 100 MCG/2 ML VIAL IVP ×2 (09:37→09:59)
[2022-12-04] MEDS: Midazolam 2 MG/2 ML VIAL IVP (09:37)
[2022-12-04] MEDS: Lactated Ringers 500 ML 80 ML IV (09:40)
[2022-12-04 10:07] VITALS: BP 119/75; PULSE 86; RESP 16; O2SAT 96
--- NOTE | 2022-12-04 10:07 | DI.RAD_ITS ---
Exam(s) XR PAIN CLINIC FLUORO JOINT IN EXAM: XR PAIN CLINIC FLUORO JOINT IN CLINICAL HISTORY: Dx: Left degerative joint disease. TECHNIQUE: Fluoroscopy was provided for the referring physician for guidance with performing pain cl inic injection procedure. COMPARISON: No exams were available for comparison FINDINGS: Please see procedure note for details. Fluoro time: 57.8 seconds RADIATION DOSE DELIVERED: Ka,r=6.25 mGy
--- NOTE | 2022-12-04 10:23 | PDOC.PAIN ---
Date of service: 12/04/22 Time of Service: 10:27 Pain Clinic Procedure Note Procedure Note Procedure Note: LEFT GENICULAR NERVE RADIOFREQUENCY ABLATION WITH THE COOLIEF MACHINE Date of Service: December 04, 2022 Patient: Dena Mojica Provider: Brandin Moscoso DO, MPH Pre-operative diagnosis: Left knee pain Post-operative diagnosis: Same Pre-procedure pain VAS was 8/10 COMMENTS: Previous Genicular nerve block to the LEFT knee. Dena Mojica has been referred to the [facility] Management Center for LEFT genicular nerve radiofrequency ablation. Dena was interviewed and the medical record reviewed. There were no medical, pharmacologic, radiographic or other structural contraindications to attempting fluoroscopically guided LEFT genicular nerve radiofrequency ablation. Risks and potential side effects as well as potential benefit of the procedure were reviewed with Dena Mojica , and HER voiced concerns were addressed. After I believed that the patient was completely informed, the printed consent form was signed. Standard time-out procedure was performed. Dena was placed in the supine position on the fluoroscopy table and automated blood pressure cuff and pulse oximeter applied. The skin entry points for approaching LEFT superolateral genicular nerve, the superomedial genicular nerve and the inferomedial genicular was identified under the most advantageous fluoroscopic view and marked. Following thorough Chlorhexadine preparation of the skin and draping, 1% lidocaine infiltration of the skin entry point and subcutaneous tissues was accomplished using a 1.5 25G needle. Next, the 10 cm 18G RF Cannula with a 10 mm active tip was advanced to os at the location of the specific nerve roots (3) using fluoroscopic guidance. Next, sensory and motor testing was performed and no abnormal findings were found. Next, 1 cc of 2% Lidocaine was injected at each site. The lesion was then created with 80 degrees C for 90 seconds. Each needle was advance 1 cm and the lesion was completed again. Each cannula was advanced until the tip reached the posterior aspect of the bone shaft. 1/4 cc of Depomedrol (40 mg/cc) was then injected at each site followed by 2 cc of 0.5% Bupivacaine as the needle was withdrawn. The needles were removed without difficulty. Dena's vital signs were stable throughout the procedure and were as recorded in the docflowsheet by the nursing staff. If given, dosages of intravenous drugs for anxiolysis and analgesia were documented in MAR. Follow up plans and appointments were discussed with the Dena Mojica . Post procedure instruction was given as documented in nursing documentation and having met discharge criteria, Dena was discharged from the [facility] Management Center. COMMENTS: No complications. Post-procedure pain VAS = 3/10. Lester WJ1, Syl SJ, Naman JG, Kitty JG, Shyam SAUCEDO, Naz PH, Gaetano JW. Radiofrequency treatment relieves chronic knee osteoarthritis pain: a double-blind randomized controlled trial. Pain. 2010;152(3):481-7. doi: 10.1016/j.pain.2010.09.029. Yeny S1, Pedrito ON2, Nilo Y3, ?zl?lerden P2, Evangelista U1, Ty ?m?rl? I. Which one is more effective for the clinical treatment of chronic pain in knee osteoarthritis: radiofrequency neurotomy of the genicular nerves or intra-articular injection? Int J Rheum Dis. 2016 Jul 05. F/U with our office as needed. Brandin Moscoso DO, MPH [facility]-Pain Management [facility]
[2022-12-04] MEDS: Lidocaine 2% Pres-Free 5 ML VIAL IJ (10:27)
[2022-12-04] MEDS: Bupivacaine 0.5% Pres-Free 10 ML VIAL IJ (10:35)
[2022-12-04] MEDS: methylPREDNISolone ACETATE 40 MG/ML VIAL IJ (10:35)
== END 2022-12-04 08:30 | disposition home or self-care (01) ==
LOC: PC 08:29
PROVIDERS: PCP Student in an Organized Health Care Education/Training Program; Visit Provider Preventive Medicine Occupational Medicine
DX: M25.562 Pain in left knee (principal)
CPT/HCPCS: 64624; 77002; J1030; J2250; J3010

== ENCOUNTER 2022-12-05 02:11 | Outpatient (CLI) | payer MEDICARE, OTHER, SELFPAY ==
--- NOTE | 2022-12-05 09:00 | DI.MRI_ITS ---
Exam(s) MR UPPER JOINT RT WO EXAM: MR UPPER JOINT RT WO CLINICAL HISTORY: PAIN,arthritis rt shoulder, m19.011. TECHNIQUE: Multiplanar multisequence MRI was performed. COMPARISON: CR XR SHOULDER RT COMPLETE 2+V from 04/25/2022 FINDINGS: BONES: There is no fracture or contusion pattern. JOINTS: There are degenerative changes at the acromioclavicular joint. The glenohumeral joint is nor mal. TENDONS: Supraspinatus: There is tendinosis of the supraspinatus tendon. There is hyperintense signal seen in the supraspinatus tendon at its insertion site onto the greater tuberosity. Infraspinatus: There is hyperintense signal seen in the infraspinatus tendon consistent with a partia l tear. Subscapularis: Unremarkable. Teres Minor: Unremarkable. Biceps and Lowell: Unremarkable. MUSCLES: Unremarkable. GLENOID LABRUM: Unremarkable on this noncontrast examination. SOFT TISSUES: Unremarkable. LIGAMENTS: Unremarkable. OTHER: There is a small amount of fluid in the subacromial subdeltoid bursa. IMPRESSION: 1. There is a partial tear of the supraspinatus tendon at its insertion site. 2. There is a partial intrasubstance tear of the infraspinatus tendon. 3. Degenerative changes of the AC joint. DATA REPOSITORY:
== END 2022-12-05 02:31 ==
LOC: DI 02:11
PROVIDERS: PCP Student in an Organized Health Care Education/Training Program; Visit Provider Student in an Organized Health Care Education/Training Program
DX: M19.011 Primary osteoarthritis, right shoulder (principal); M75.101 Unspecified rotator cuff tear or rupture of right shoulder, not specified as traumatic
CPT/HCPCS: 73221

== ENCOUNTER 2023-01-09 12:05 | Outpatient (CLI) | payer MEDICARE, OTHER, SELFPAY ==
--- NOTE | 2023-01-09 11:30 | DI.RAD_ITS ---
Exam(s) XR SHOULDER LT COMPLETE 2+V EXAM: XR SHOULDER LT COMPLETE 2+V CLINICAL HISTORY: L shoulder pain. TECHNIQUE: 2D digital imaging was performed. COMPARISON: CR XR SHOULDER RT COMPLETE 2+V from 04/25/2022 FINDINGS: 3 views No evidence of fracture or dislocation. No soft tissue calcifications in the sub acromial space and the subacromial space is not diminished. There are no obvious degenerative changes in the glenohumer al joint. Clavicle is intact. Sternotomy wires noted. No osseous lesions. IMPRESSION: No significant osseous findings. DATA REPOSITORY: RADIATION DOSE DELIVERED:
== END 2023-01-09 12:06 | disposition home or self-care (01) ==
LOC: DIORS 12:05
PROVIDERS: PCP Student in an Organized Health Care Education/Training Program; Referring Provider Student in an Organized Health Care Education/Training Program; Visit Provider Student in an Organized Health Care Education/Training Program
DX: M75.82 Other shoulder lesions, left shoulder; M19.011 Primary osteoarthritis, right shoulder; M67.911 Unspecified disorder of synovium and tendon, right shoulder
CPT/HCPCS: 99214; 73030

== ENCOUNTER 2023-05-06 01:58 | Outpatient (CLI) | payer MEDICARE, OTHER, SELFPAY ==
[2023-05-06 10:03] LABS: Anion Gap 12.3 mmol/L (3-11); BUN 14 mg/dL (7-18); CO2 25.7 mmol/L (21.0-32.0); Calcium 8.8 mg/dL (8.5-10.1); Calculated LDL 47 mg/dL (<100); Chloride 103 mmol/L (98-107); Cholesterol 142 mg/dL (<200); Estimated GFR 60.61 (mL/min/1.73m2); Glucose 143 mg/dL (74-106); HDL Cholesterol 39 mg/dL (40-60); Potassium 3.8 mmol/L (3.5-5.1); Sodium 141 mmol/L (136-145); Triglyceride 283 mg/dL (<150)
== END 2023-05-06 01:59 | disposition home or self-care (01) ==
LOC: LBO 01:58
PROVIDERS: PCP Student in an Organized Health Care Education/Training Program; Visit Provider Student in an Organized Health Care Education/Training Program
DX: Z68.43 Body mass index [BMI] 50.0-59.9, adult (principal); E11.9 Type 2 diabetes mellitus without complications; I10 Essential (primary) hypertension; I48.91 Unspecified atrial fibrillation; I50.9 Heart failure, unspecified; E66.8 Other obesity
CPT/HCPCS: 36415; 80048; 80061; 85018

== ENCOUNTER 2023-05-14 01:42 | Outpatient (CLI) | payer MEDICARE, OTHER, SELFPAY ==
--- NOTE | 2023-05-14 08:15 | DI.RAD_ITS ---
Exam(s) XR CHEST 2V PA LATERAL EXAM: XR CHEST 2V PA LATERAL CLINICAL HISTORY: Upper chest tenderness/ache, since fall in Sep?! TECHNIQUE: 2D digital imaging was performed of the chest. Two images were obtained. PA and lateral views were obtained. COMPARISON: CR,XR XR CHEST 2V PA LATERAL from 12/04/2020 FINDINGS: MEDIASTINUM: Normal. HEART: Status post CABG. No cardiomegaly. PULMONARY VASCULATURE: Normal. LUNGS: Clear. PLEURAL SPACE: There is blunting of the left costophrenic angle which is new since the prior examinat ion. This may represent scarring or pleural effusion. No right pleural effusion is seen. No pneumo thorax. BONE:Within normal limits for the patient's age. OTHER FINDINGS:Normal. IMPRESSION: New blunting of the left costophrenic angle. This may represent scarring or small pleural effusion. DATA REPOSITORY: RADIATION DOSE DELIVERED:
--- NOTE | 2023-05-14 08:15 | DI.RAD_ITS ---
Exam(s) XR FOOT LT COMPLETE XR FOOT RT COMPLETE EXAM: XR FOOT LT COMPLETE and XR foot RT complete CLINICAL HISTORY: eval joint space for rheum dz, FOOT JOINT STIFFNESS OWEN, RHEUMATIC DISEASE. TECHNIQUE: 2D digital imaging was performed of the left and right foot. Six images were obtained. A P, oblique and lateral views were obtained. COMPARISON: None. FINDINGS: BONES: No acute fracture is present. No bony destructive lesion is seen. There are bilateral plantar calcaneal spurs. Are bilateral calcaneal enthesophytes. JOINTS: No dislocation present. The joint spaces are fairly well maintained. No erosions or joint sp abe narrowing is seen. No significant periarticular osteopenia is present. There is mild bony hypert rophy at the articulation of the navicular and the cuneiform in the right foot consistent with osteoa rthritis. SOFT TISSUE: Atherosclerosis. Soft tissue swelling of both feet, particularly the forefoot. IMPRESSION: 1. There is soft tissue swelling particularly of the forefeet bilaterally. 2. No joint space narrowing or erosions are seen. DATA REPOSITORY: RADIATION DOSE DELIVERED:
== END 2023-05-14 02:02 ==
LOC: DI 01:42
PROVIDERS: PCP Student in an Organized Health Care Education/Training Program; Visit Provider Student in an Organized Health Care Education/Training Program
DX: M25.674 Stiffness of right foot, not elsewhere classified (principal); M25.675 Stiffness of left foot, not elsewhere classified; M79.89 Other specified soft tissue disorders; S20.219A Contusion of unspecified front wall of thorax, initial encounter
CPT/HCPCS: 71046; 73630

== ENCOUNTER 2023-07-29 02:32 | Outpatient (CLI) | payer MEDICARE, OTHER, SELFPAY ==
[2023-07-29 21:54] LABS: Rheumatoid Factor <8.6 IU/mL (<12.0)
[2023-07-30 09:04] LABS: Cyclic Citrullinated Peptide <2.5 U/mL (<5.0)
== END 2023-07-29 02:33 | disposition home or self-care (01) ==
LOC: LBO 02:32
PROVIDERS: PCP Student in an Organized Health Care Education/Training Program; Visit Provider Student in an Organized Health Care Education/Training Program
DX: M25.674 Stiffness of right foot, not elsewhere classified (principal); M25.675 Stiffness of left foot, not elsewhere classified; M79.0 Rheumatism, unspecified
CPT/HCPCS: 36415; 86200; 86431